=== PATIENT | female | born 1985 | race Two or more races ===

== ENCOUNTER → 2020-02-25 14:02 | Outpatient (BNVA) | payer OTHER, SELFPAY | PROVIDERS: Visit Provider Advanced Practice Midwife | DX: Z30.42 Encounter for surveillance of injectable contraceptive (principal) | CPT/HCPCS: 99211 ==

== ENCOUNTER → 2020-05-15 13:05 | Outpatient (BNVA) | payer OTHER, SELFPAY | PROVIDERS: Visit Provider Advanced Practice Midwife | DX: Z30.42 Encounter for surveillance of injectable contraceptive (principal) | CPT/HCPCS: 96372; 99211; J1050 ==

== ENCOUNTER 2020-06-19 12:46 | Outpatient (REF) | payer OTHER, SELFPAY ==
--- NOTE | 2020-06-19 12:52 | ECG_ITS ---
Test Reason : PREOP Blood Pressure : / mmHG Vent. Rate : 076 BPM Atrial Rate : 076 BPM P-R Int : 134 ms QRS Dur : 074 ms QT Int : 370 ms P-R-T Axes : 065 059 044 degrees QTc Int : 416 ms Normal sinus rhythm with sinus arrhythmia Normal ECG No previous ECGs available Referred By: Tristan Yoon Electronically Signed By:Josh Danielson
[2020-06-19 13:59] LABS: Hematocrit 40.4 % (37-47); Hemoglobin 13.5 g/dl (12.0-16.0); Mean Corpuscular HGB Conc 33.4 g/dl (31.0-35.0); Mean Corpuscular Hemoglobin 30.3 pg (27.0-33.0); Mean Corpuscular Volume 90.6 fL (80-98); Mean Platelet Volume 9.1 fL (9.4-12.3); Platelet Count 375 X10*3/uL (160-400); Red Blood Count 4.46 X10*6/uL (4.20-5.50); Red Cell Distribution Width 12.3 % (11.0-16.0); White Blood Count 7.8 X10*3/uL (4.8-10.8)
[2020-06-19 14:02] LABS: Prothrombin Time 12.4 SEC (10.8-13.0)
[2020-06-19 14:33] LABS: Anion Gap 16 (12-20); Blood Urea Nitrogen 9 mg/dL (9-16); Calcium 9.5 mg/dL (8.4-10.2); Carbon Dioxide 24 mmol/L (22-29); Chloride 105 mmol/L (96-108); Estimated Glomerular Filt Rate > 60; Glucose Random 85 mg/dL (60-115); Potassium 4.5 mmol/l (3.3-5.1); Sodium 140 mmol/L (135-145)
== END 2020-06-19 12:47 | disposition home or self-care (01) ==
LOC: HO.LAB 12:46
PROVIDERS: PCP Internal Medicine; Visit Provider Physician Assistant
DX: Z01.818 Encounter for other preprocedural examination (principal); I10 Essential (primary) hypertension
CPT/HCPCS: 36415; 80048; 85027; 85610; 93005

== ENCOUNTER 2020-07-27 12:18 | Outpatient (REF) | payer OTHER, SELFPAY ==
--- NOTE | ~2020-07-27 | XR_ITS ---
EXAMINATION: XR CHEST CLINICAL INFORMATION: Chest pain COMPARISON: None TECHNIQUE: 2 views of the chest were obtained. FINDINGS: No significant abnormality is noted involving the heart, lungs, mediastinum, bony thorax or soft tissues. XR/XR chest 2V IMPRESSION: Unremarkable chest examination.
[2020-07-27 13:15] LABS: MANUAL DIFF FLAG NO
[2020-07-27 13:18] LABS: Basophils Percent Auto 0.5 % (0-2); Eosinophils Absolute Auto 0.4 X10*3/uL (0.0-0.4); Eosinophils Percent Auto 6.3 % (0-4); Hematocrit 38.8 % (37-47); Hemoglobin 13.2 g/dl (12.0-16.0); Lymphocytes Absolute Auto 1.7 X10*3/uL (1.2-4.9); Lymphocytes Percent Auto 29.1 % (20-40); Mean Corpuscular Hemoglobin 30.6 pg (27.0-33.0); Mean Platelet Volume 9.2 fL (9.4-12.3); Monocytes Absolute Auto 0.5 X10*3/uL (0.1-1.2); Monocytes Percent Auto 8.1 % (2-11); Neutrophils Absolute Auto 3.3 X10*3/uL (2.0-8.3); Platelet Count 348 X10*3/uL (160-400); Red Blood Count 4.31 X10*6/uL (4.20-5.50); Red Cell Distribution Width 11.8 % (11.0-16.0); White Blood Count 5.9 X10*3/uL (4.8-10.8)
[2020-07-27 13:36] LABS: Prothrombin Time 12.4 SEC (10.8-13.0)
[2020-07-27 13:39] LABS: Partial Thromboplastin Time 38.8 SEC (24.1-38.0)
[2020-07-27 13:46] LABS: Alanine Aminotransferase 11 U/L (0-31); Albumin Level 4.8 g/dL (3.5-5.0); Alkaline Phosphatase 74 U/L (39-117); Anion Gap 13 (12-20); Aspartate Amino Transferase 14 U/L (5-31); Bilirubin Total 0.8 mg/dL (0.0-1.0); Blood Urea Nitrogen 10 mg/dL (9-16); Calcium 9.6 mg/dL (8.4-10.2); Carbon Dioxide 23 mmol/L (22-29); Chloride 105 mmol/L (96-108); Estimated Glomerular Filt Rate > 60; Glucose Random 83 mg/dL (60-115); Potassium 4.4 mmol/L (3.3-5.1); Sodium 137 mmol/L (135-145); Total Protein 7.8 g/dL (6.5-8.0)
[2020-07-27 13:58] LABS: Estimated Average Glucose 97 mg/dL
[2020-07-27 14:09] LABS: HCG Quantitative < 2 mIU/mL; TSH reflex Free T4 0.94 uIU/mL (0.32-4.0)
[2020-07-28 08:21] LABS: HBS Num1 14.25 mIU/mL (0-7.99); HBc Num1 0.08 S/CO (0.00-0.79); HIV AB/AG Nonreactive (Nonreactive); HIV Num 1 0.06 S/CO (0.00-0.99); Hepatitis B Core Antibody Nonreactive (Nonreactive); ~Hepatitis B Surface Antibody REACTIVE (Nonreactive)
[2020-07-28 08:48] LABS: HBsAGNum1 0.18 S/CO (0.00-0.99); Hepatitis B Surface Antigen Negative (Negative); ~HepC Num1 0.15 S/CO (0.00-0.79); ~Hepatitis C Antibody Nonreactive (Nonreactive)
== END 2020-07-27 12:19 | disposition home or self-care (01) ==
LOC: HO.LAB 12:18
PROVIDERS: PCP Internal Medicine; Visit Provider Family Medicine
DX: Z01.810 Encounter for preprocedural cardiovascular examination (principal); Z11.3 Encounter for screening for infections with a predominantly sexual mode of transmission
CPT/HCPCS: 36415; 71046; 80053; 83036; 84443; 84702; 85025; 85610; 85730; 86704; 86706; 86803; 87340; 87389

== ENCOUNTER 2020-07-31 11:01 | Outpatient (REF) | payer OTHER, SELFPAY ==
[2020-07-31 13:05] LABS: Glucose Urine UA NEG (NEG); Leukocyte Esterase Urine 1+ (NEG); Nitrite Urine NEG (NEG); Specific Gravity - Urine >= 1.030 (1.005-1.025); Urine Blood TRACE (NEG); Urine Ketones NEG (NEG); Urine Protein NEG (NEG-TRACE)
[2020-07-31 13:13] LABS: Appearance Urine HAZY; Color Urine YELLOW
[2020-07-31 14:39] LABS: Renal Epithelial Cells Urine 1+ /LPF; Squamous Epithelial Cell Urine 2+ /LPF
== END 2020-07-31 11:02 | disposition home or self-care (01) ==
LOC: HO.LAB 11:01
PROVIDERS: Absent Provider Family Medicine; PCP Internal Medicine; Visit Provider Advanced Practice Midwife
DX: Z01.810 Encounter for preprocedural cardiovascular examination (principal); Z30.42 Encounter for surveillance of injectable contraceptive
CPT/HCPCS: 81001; 81003; 96372

== ENCOUNTER 2020-08-16 13:34 | Outpatient (REF) | payer OTHER, SELFPAY ==
[2020-08-16 14:23] LABS: Glucose Urine UA NEG (NEG); Leukocyte Esterase Urine NEG (NEG); Nitrite Urine NEG (NEG); PH 6.5 (5.0-8.0); Specific Gravity - Urine 1.015 (1.005-1.025); Urine Blood TRACE (NEG); Urine Ketones NEG (NEG); Urine Protein NEG (NEG-TRACE)
[2020-08-16 14:26] LABS: Appearance Urine CLEAR; Color Urine YELLOW
[2020-08-16 14:35] LABS: RBC Urine 0-2 /HPF (0); Squamous Epithelial Cell Urine TRACE /LPF; WBC Urine 0 /HPF (0-4)
== END 2020-08-16 13:35 | disposition home or self-care (01) ==
LOC: HO.LAB 13:34
PROVIDERS: Family Medicine; PCP Internal Medicine; Visit Provider Internal Medicine
DX: Z20.822 Contact with and (suspected) exposure to COVID-19 (principal); R30.0 Dysuria
CPT/HCPCS: 36415; 81001; U0003; U0005

== ENCOUNTER 2020-08-28 14:47 | Outpatient (REF) | payer OTHER, SELFPAY ==
[2020-08-29 09:57] LABS: SARS COV2 PCR INHOUSE NEGATIVE (Negative)
== END 2020-08-28 14:48 | disposition home or self-care (01) ==
LOC: HO.LAB 14:47
PROVIDERS: Visit Provider Internal Medicine
DX: Z20.822 Contact with and (suspected) exposure to COVID-19 (principal)
CPT/HCPCS: C9803; U0003

== ENCOUNTER 2020-10-16 10:07 | Outpatient (REF) | payer OTHER, SELFPAY ==
[2020-10-16 13:30] LABS: CT PCR NOT DETECTED (Not Detect.); NG PCR NOT DETECTED (Not Detect.)
[2020-10-17 08:58] LABS: BV Int Neg Control Negative (Negative); BV Int Pos Control Positive (Positive)
[2020-10-18 23:42] LABS: HPV mRNA E6/E7 rflx Not Detected (Not Detected)
== END 2020-10-16 10:08 | disposition home or self-care (01) ==
LOC: HO.LAB 10:07
PROVIDERS: Visit Provider Advanced Practice Midwife
DX: Z01.419 Encounter for gynecological examination (general) (routine) without abnormal findings (principal); Z11.3 Encounter for screening for infections with a predominantly sexual mode of transmission; Z11.51 Encounter for screening for human papillomavirus (HPV); N89.8 Other specified noninflammatory disorders of vagina; Z20.2 Contact with and (suspected) exposure to infections with a predominantly sexual mode of transmission; Z87.42 Personal history of other diseases of the female genital tract
CPT/HCPCS: 87480; 87491; 87510; 87591; 87624; 87660; 88142; 96372; J1050

== ENCOUNTER → 2020-11-09 09:56 | Outpatient (REF) | payer OTHER, SELFPAY ==
--- NOTE | 2020-11-09 10:01 | ECG_ITS ---
Test Reason : Z01.818 PRE OP Blood Pressure : / mmHG Vent. Rate : 073 BPM Atrial Rate : 073 BPM P-R Int : 134 ms QRS Dur : 076 ms QT Int : 386 ms P-R-T Axes : 060 056 045 degrees QTc Int : 425 ms Normal sinus rhythm with sinus arrhythmia Normal ECG When compared with ECG of 19-JUN-2020 12:55, No significant change was found Referred By: Stacy Quinones Electronically Signed By:RICCO GARRETT
[2020-11-09 10:35] LABS: MANUAL DIFF FLAG NO
[2020-11-09 10:38] LABS: Basophils Percent Auto 0.5 % (0-2); Eosinophils Absolute Auto 0.2 X10*3/uL (0.0-0.4); Hematocrit 37.6 % (37-47); Hemoglobin 12.8 g/dl (12.0-16.0); Imm Gran Abs Auto 0.01 X10*3/uL (0.00-0.03); Imm Gran Pct Auto 0.2 % (0.0-0.4); Lymphocytes Absolute Auto 1.5 X10*3/uL (1.2-4.9); Lymphocytes Percent Auto 23.2 % (20-40); Mean Corpuscular Hemoglobin 30.3 pg (27.0-33.0); Mean Corpuscular Volume 89.1 fL (80-98); Mean Platelet Volume 9.2 fL (9.4-12.3); Monocytes Absolute Auto 0.5 X10*3/uL (0.1-1.2); Monocytes Percent Auto 7.8 % (2-11); Neutrophils Absolute Auto 4.2 X10*3/uL (2.0-8.3); Neutrophils Percent Auto 65.3 % (45-73); Platelet Count 340 X10*3/uL (160-400); Red Blood Count 4.22 X10*6/uL (4.20-5.50); Red Cell Distribution Width 11.9 % (11.0-16.0); White Blood Count 6.4 X10*3/uL (4.8-10.8)
[2020-11-09 10:46] LABS: INTERNATIONAL NORM RATIO 1.1 (0.9-1.1); Prothrombin Time 12.7 SEC (10.8-13.0)
[2020-11-09 10:49] LABS: Partial Thromboplastin Time 40.6 SEC (24.1-38.0)
[2020-11-09 11:01] LABS: Alanine Aminotransferase 15 U/L (0-31); Albumin Level 4.7 g/dL (3.5-5.0); Alkaline Phosphatase 76 U/L (39-117); Anion Gap 13 (12-20); Aspartate Amino Transferase 15 U/L (5-31); Bilirubin Total 0.7 mg/dL (0.0-1.0); Blood Urea Nitrogen 9 mg/dL (9-16); Calcium 9.4 mg/dL (8.4-10.2); Carbon Dioxide 24 mmol/L (22-29); Chloride 108 mmol/L (96-108); Estimated Glomerular Filt Rate > 60; Glucose Fasting 94 mg/dL (60-99); Potassium 4.6 mmol/L (3.3-5.1); Sodium 140 mmol/L (135-145); Total Protein 7.6 g/dL (6.5-8.0)
== END ==
LOC: HO.CARD 09:56
PROVIDERS: PCP Internal Medicine; Visit Provider Internal Medicine
DX: Z01.818 Encounter for other preprocedural examination (principal); D64.9 Anemia, unspecified
CPT/HCPCS: 36415; 80053; 85025; 85610; 85730; 93005; U0005

== ENCOUNTER → 2021-01-08 13:10 | Outpatient (BNVA) | payer OTHER, SELFPAY | PROVIDERS: PCP Internal Medicine; Visit Provider Advanced Practice Midwife | DX: Z30.42 Encounter for surveillance of injectable contraceptive (principal) | CPT/HCPCS: 96372; 99211 ==

== ENCOUNTER 2021-04-16 09:19 | Emergency (ER) | payer OTHER, SELFPAY | END 2021-04-16 09:36 | disposition left against medical advice (07) | PROVIDERS: Emergency Provider Emergency Medicine; PCP Internal Medicine | DX: R42 Dizziness and giddiness (principal) ==

== ENCOUNTER 2021-04-16 11:11 | Outpatient (REF) | payer OTHER, SELFPAY ==
[2021-04-16 14:07] LABS: Hematocrit 37.1 % (37.0-47.0); Hemoglobin 12.7 g/dl (12.0-16.0); Mean Corpuscular HGB Conc 34.2 g/dl (31.0-35.0); Mean Corpuscular Hemoglobin 30.2 pg (27.0-33.0); Mean Corpuscular Volume 88.3 fL (80.0-98.0); Mean Platelet Volume 9.5 fL (9.4-12.3); Platelet Count 370 X10*3/uL (160-400); Red Cell Distribution Width 12.8 % (11.0-16.0); White Blood Count 7.6 X10*3/uL (4.8-10.8)
[2021-04-16 14:35] LABS: Anion Gap 12 (12-20); Blood Urea Nitrogen 7 mg/dL (9-16); Calcium 9.4 mg/dL (8.4-10.2); Carbon Dioxide 25 mmol/L (22-29); Chloride 106 mmol/L (96-108); Estimated Glomerular Filt Rate > 60; Glucose Random 87 mg/dL (60-115); Potassium 4.4 mmol/L (3.3-5.1); Sodium 139 mmol/L (135-145)
[2021-04-16 14:38] LABS: TSH reflex Free T4 0.84 uIU/mL (0.32-4.0)
== END 2021-04-16 11:12 | disposition home or self-care (01) ==
LOC: HO.HMGCLDS 11:11
PROVIDERS: PCP Internal Medicine; Visit Provider Physician Assistant
DX: R42 Dizziness and giddiness (principal)
CPT/HCPCS: 36415; 80048; 84443; 85027

== ENCOUNTER → 2021-05-10 12:44 | Outpatient (BNVA) | payer OTHER, SELFPAY | PROVIDERS: PCP Internal Medicine; Visit Provider Obstetrics & Gynecology ==

== ENCOUNTER 2021-06-18 15:45 | Outpatient (REF) | payer OTHER, SELFPAY ==
[2021-06-19 09:02] LABS: HBS Num1 20.46 mIU/mL (0-7.99); HBc Num1 0.19 S/CO (0.00-0.79); HBsAGNum1 0.24 S/CO (0.00-0.99); Hepatitis B Core Antibody Nonreactive (Nonreactive); Hepatitis B Surface Antigen Negative (Negative); ~Hepatitis B Surface Antibody REACTIVE (Nonreactive)
[2021-06-19 17:27] LABS: Mumps Virus IgG Antibody <9.00 AU/mL
[2021-06-19 21:32] LABS: Rubella IgG Antibody 1.53 Index
[2021-06-20 18:11] LABS: TS Negative Control Passed; TS Panel A 1; TS Panel B 0; TS Positive Control Passed; TSpotTB Negative (Negative)
== END 2021-06-18 15:46 | disposition home or self-care (01) ==
LOC: HO.LAB 15:45
PROVIDERS: PCP Internal Medicine; Visit Provider Internal Medicine
DX: Z01.84 Encounter for antibody response examination (principal); Z11.1 Encounter for screening for respiratory tuberculosis
CPT/HCPCS: 36415; 86481; 86704; 86706; 86735; 86762; 86765; 86787; 87340

== ENCOUNTER → 2021-07-02 10:33 | Outpatient (BNVA) | payer OTHER, SELFPAY | PROVIDERS: Visit Provider Obstetrics & Gynecology | DX: Z01.818 Encounter for other preprocedural examination (principal) | CPT/HCPCS: 99212 ==

== ENCOUNTER → 2021-07-30 13:50 | Outpatient (BNVA) | payer OTHER, SELFPAY | PROVIDERS: Visit Provider Advanced Practice Midwife | DX: Z30.42 Encounter for surveillance of injectable contraceptive (principal); Z30.09 Encounter for other general counseling and advice on contraception | CPT/HCPCS: 81025; 96372; 99212 ==

== ENCOUNTER → 2021-10-15 13:10 | Outpatient (BNVA) | payer OTHER, SELFPAY | PROVIDERS: PCP Internal Medicine; Visit Provider Advanced Practice Midwife | DX: Z30.42 Encounter for surveillance of injectable contraceptive (principal) | CPT/HCPCS: 96372; 99211 ==

== ENCOUNTER 2022-01-08 15:18 | Outpatient (REF) | payer OTHER, SELFPAY ==
[2022-01-08 15:39] LABS: Binax Internal Control QC Valid; Binax Now Covid-19 Ag Negative (Negative)
== END 2022-01-08 15:19 | disposition home or self-care (01) ==
LOC: HO.HMGCLDS 15:18
PROVIDERS: Visit Provider Internal Medicine
DX: Z20.822 Contact with and (suspected) exposure to COVID-19 (principal); J06.9 Acute upper respiratory infection, unspecified
CPT/HCPCS: 87811; C9803

== ENCOUNTER 2022-02-04 15:22 | Outpatient (REF) | payer OTHER, SELFPAY ==
[2022-02-05 05:22] LABS: CT PCR NOT DETECTED (Not Detect.); NG PCR NOT DETECTED (Not Detect.)
[2022-02-05 13:21] LABS: BV Int Neg Control Negative (Negative); BV Int Pos Control Positive (Positive)
== END 2022-02-04 15:23 | disposition home or self-care (01) ==
LOC: HO.LNP 15:22
PROVIDERS: Visit Provider Advanced Practice Midwife
DX: Z11.3 Encounter for screening for infections with a predominantly sexual mode of transmission (principal); N89.8 Other specified noninflammatory disorders of vagina; Z20.2 Contact with and (suspected) exposure to infections with a predominantly sexual mode of transmission
CPT/HCPCS: 87480; 87491; 87510; 87591; 87660; 99212

== ENCOUNTER 2022-03-04 10:11 | Outpatient (REF) | payer OTHER, SELFPAY ==
[2022-03-04 10:55] LABS: Alanine Aminotransferase 10 U/L (0-31); Albumin Level 4.5 g/dL (3.5-5.0); Alkaline Phosphatase 84 U/L (39-117); Anion Gap 13 (12-20); Aspartate Amino Transferase 12 U/L (5-31); Bilirubin Total 0.6 mg/dL (0.0-1.0); Blood Urea Nitrogen 8 mg/dL (9-16); Calcium 9.5 mg/dL (8.4-10.2); Carbon Dioxide 24 mmol/L (22-29); Chloride 105 mmol/L (96-108); Cholesterol 164 mg/dL; Estimated Glomerular Filt Rate > 60; Glucose Fasting 97 mg/dL (60-99); HDL Cholesterol 47 mg/dL; LDL Cholesterol Calculated 102 mg/dl; Potassium 4.2 mmol/L (3.3-5.1); Sodium 138 mmol/L (135-145); Total Protein 7.6 g/dL (6.5-8.0); Triglycerides 78 mg/dL
[2022-03-04 11:19] LABS: Thyroid Stimulating Hormone 0.85 uIU/mL (0.32-4.0)
[2022-03-05 11:32] LABS: Immunoglobulin A 271 mg/dL (47-310)
[2022-03-05 14:02] LABS: Transglutaminase Ab IgG <1.0 U/mL
[2022-03-07 17:47] LABS: Endomysial IgA Antibody Negative (Negative)
== END 2022-03-04 10:12 | disposition home or self-care (01) ==
LOC: HO.LAB 10:11
PROVIDERS: PCP Internal Medicine; Visit Provider Internal Medicine
DX: K52.9 Noninfective gastroenteritis and colitis, unspecified (principal); Z82.49 Family history of ischemic heart disease and other diseases of the circulatory system
CPT/HCPCS: 36415; 80053; 80061; 82784; 84443; 86231; 86364

== ENCOUNTER 2022-03-11 09:29 | Outpatient (REF) | payer OTHER, SELFPAY ==
[2022-03-11 16:24] LABS: C Reactive Protein 0.03 mg/dL (< or = 0.50); Iron 92 mcg/dL (30-160); Percent Iron Saturation 29 % (15-50); Total Iron Binding Capacity 312 mcg/dL (228-428); Unsaturated Iron Binding 220 ug/dL
[2022-03-11 16:48] LABS: Ferritin 38 ng/mL (10-122); Vitamin D 25-OH Total 16.5 ng/mL (>30)
[2022-03-11 17:03] LABS: Folate 9.9 ng/mL (> or = 4.0); Vitamin B12 302 pg/mL (200-900)
[2022-03-13 11:47] LABS: Transglutaminase IgA <1.0 U/mL
== END 2022-03-11 09:30 | disposition home or self-care (01) ==
LOC: HO.LAB 09:29
PROVIDERS: PCP Internal Medicine; Visit Provider Internal Medicine
DX: K52.9 Noninfective gastroenteritis and colitis, unspecified (principal); R10.9 Unspecified abdominal pain
CPT/HCPCS: 36415; 82306; 82607; 82728; 82746; 83540; 83993; 86140; 86364; 87338; 87493; 89055; 99202

== ENCOUNTER 2022-03-11 14:52 | Outpatient (REF) | payer OTHER, SELFPAY ==
[2022-03-12 16:14] LABS: CDiff Gene PCR NEGATIVE (Negative)
[2022-03-12 16:47] LABS: Leukocytes Stool Qualitative NEGATIVE (NEGATIVE)
[2022-03-16 17:52] LABS: Calprotectin, Fecal 330 mcg/g
[2022-03-29 13:19] LABS: H pylori Ag Stool NOT DETECTED
== END 2022-03-11 14:53 | disposition home or self-care (01) ==
LOC: HO.LNP 14:52
PROVIDERS: Internal Medicine; Visit Provider Internal Medicine
DX: Z13.89 Encounter for screening for other disorder (principal)
CPT/HCPCS: 83993; 87338; 87493; 89055

== ENCOUNTER 2022-03-25 09:20 | Outpatient (REF) | payer OTHER, SELFPAY ==
--- NOTE | ~2022-03-25 | CT_ITS ---
EXAMINATION: CT ABDOMEN AND PELVIS WITH CONTRAST CLINICAL INFORMATION: Noninfective gastroenteritis and colitis COMPARISON: Previous CT of the abdomen and pelvis June 2017 TECHNIQUE: Multidetector volumetric images were obtained from the superior aspect of the liver through the pubic symphysis following administration 85 mL of Omnipaque 350 intravenous contrast. Sagittal and coronal reformatted images were obtained on the technologist's workstation. Oral contrast: Yes This CT examination was performed using dose optimization techniques as appropriate, variously including the following: *Automated exposure control *Adjustment of mA and/or kV according to patient size (this includes techniques or standardized protocols for targeted exams where dose is matched to indication/reason for exam; i.e. extremities or head) *Use of iterative reconstruction technique DLP: 405 mGy-cm FINDINGS: LUNG BASES: The visualized lung bases are unremarkable. LIVER, GALLBLADDER, AND BILIARY TREE: The liver is normal in size, shape, and attenuation. No focal hepatic lesion or biliary ductal dilatation is present. The gallbladder is unremarkable with no evidence of radiopaque gallstones, gallbladder wall thickening, or obvious pericholecystic inflammatory changes. PANCREAS: Unremarkable. SPLEEN: Unremarkable. ADRENAL GLANDS: Unremarkable. KIDNEYS AND URETERS: The kidneys are normal in size, shape, and attenuation. No hydronephrosis, hydroureter, or calculi seen. No perinephric stranding. BLADDER: Unremarkable. GASTROINTESTINAL TRACT: The small and large bowel are unremarkable. The appendix is unremarkable. ABDOMINAL WALL: No significant hernia is appreciated. LYMPH NODES: There is shotty small bowel mesentery lymphadenopathy in the right lower quadrant. This is similar to previous exam 2018. No enlarged nodes. No ascites. VASCULAR: Unremarkable. PELVIC VISCERA: Prominent pelvic vessels questionable for pelvic congestion. Uterus and ovaries are otherwise unremarkable. OSSEOUS STRUCTURES: Unremarkable. CT/CT abdomen pelvis w IV con IMPRESSION: No evidence of colitis. Prominent pelvic vessels questionable for pelvic congestion. Fleischner guidelines were followed.
[2022-03-25] MEDS: iohexoL 350 MG/ML 100 ML INFUS..BTL IV (09:54)
== END 2022-03-25 09:21 | disposition home or self-care (01) ==
LOC: HO.CT 09:20
PROVIDERS: Visit Provider Internal Medicine
DX: K52.9 Noninfective gastroenteritis and colitis, unspecified (principal)
CPT/HCPCS: 74177; Q9967

== ENCOUNTER 2022-04-11 12:43 | Day surgery (SDC) | payer OTHER, SELFPAY ==
[2022-04-05 11:02] VITALS: BMI 26.9
--- NOTE | 2022-04-10 13:04 | P.CONAN_ITS ---
Documented by User: Jennifer Monaco NP 04/10/22 13:05 HPI - Anesthesia Eval Consult details Narrative: 36yo F for Colonoscopy PMFSH Active Problems Active Problems: All Active Problems (Updated 03/21/22 @ 17:34 by Stacy Quinones MD) Anxiety (Acute) Migraines (Acute) Memory loss (Acute) Physical exam (Acute) Central abdominal pain (Acute) BPPV (benign paroxysmal positional vertigo) (Acute) Chronic diarrhea (Acute) Upper respiratory tract infection (Acute) Encounter for management and injection of depo-Provera (Acute) Sterilization (Acute) Family planning (Acute) Pre-op evaluation (Acute) Vaginal discharge (Acute) Hx of abnormal cervical Pap smear (Acute) Well woman exam with routine gynecological exam (Acute) Preop cardiovascular exam (Acute) Fungal dermatitis (Acute) Pre-op evaluation (Acute) Depot contraception (Acute) Depo-Provera contraceptive status (Acute) Past Medical History Medical History (Updated 04/11/22 @ 12:58 by Mckenzie Castro RN) Anxiety Asthma Migraine Family History Family History Mother History of hypertension Hx of diabetes mellitus History of high cholesterol Father Murder Daughter In good health Daughter In good health Sister No problems noted. Brother No problems noted. Sister No problems noted. Sister No problems noted. Surgical History Surgical History (Updated 04/11/22 @ 13:01 by Mckenzie Castro RN) History of loop electrical excision procedure (LEEP) Hx of abdominal surgery Social History Social History Housing: House Alcohol intake: current Alcohol intake frequency: a few times a month Patient Tobacco Use Status: Former Tobacco user Quit Date: 6 mos ago Tobacco use type: Cigarette e-Cigarette/Vaping Use: Never Used Second Hand Smoke Exposure: No service: No Current occupational status: employed Gender identity: Female Cognitive needs: No Hearing needs: No Vision needs: Yes Meds Allergies Allergy/AdvReac Type Severity Reaction Status Date / Time No Known Allergies Allergy Verified 03/21/22 17:22 [No Known Allergies*] Exam Exam Date and Time: April 10, 2022 1304 Height,Weight and Vital Signs: Height 5 ft 6 in Weight 75.75 kg Pertinent Lab Results Pertinent Lab Results: Laboratory Tests 11/22/21 10/10/22 11:27 10:21 WBC 7.6 Hgb 12.7 Hct 37.1 Plt Count 370 Sodium 138 Potassium 4.2 Chloride 105 Carbon Dioxide 24 BUN 8 L Creatinine 0.74 Assessment and Plan Assessment Anesthesia Assessment: Chart Reviewed Documented by User: Isaac Gregory MD 04/11/22 17:52 [facility] Past Medical History Medical History (Updated 04/11/22 @ 12:58 by Mckenzie Castro RN) Anxiety Asthma Migraine Family History Family History Mother History of hypertension Hx of diabetes mellitus History of high cholesterol Father Murder Daughter In good health Daughter In good health Sister No problems noted. Brother No problems noted. Sister No problems noted. Sister No problems noted. Family history of problems with anesthesia: No Surgical History Surgical History (Updated 04/11/22 @ 13:01 by Mckenzie Castro RN) History of loop electrical excision procedure (LEEP) Hx of abdominal surgery History of Problems with Anesthesia: No Social History Social History Housing: House Alcohol intake: current Alcohol intake frequency: a few times a month Patient Tobacco Use Status: Former Tobacco user Quit Date: 6 mos ago Tobacco use type: Cigarette e-Cigarette/Vaping Use: Never Used Second Hand Smoke Exposure: No service: No Current occupational status: employed Gender identity: Female Cognitive needs: No Hearing needs: No Vision needs: Yes Meds Allergies Allergy/AdvReac Type Severity Reaction Status Date / Time No Known Allergies Allergy Verified 03/21/22 17:22 [No Known Allergies*] Exam Airway Mallampati Class: III TM Dist: >3cm Neck ROM: Full Loose/Missing/Broken Teeth: Yes (Fillings ) Heart: S1,S2 Lungs: b/l breath sounds Assessment and Plan Assessment Anesthesia Assessment: Anesthesia Plan Discussed Final Anesthetic Review Family History of Problems with Anesthesia: No History of Problems with Anesthesia: No NPO: Yes ASA Class: II Final Preanesthetic Review: Meds/Allgs Chart Reviewed, Consent Obtained/Reviewed and Anes Risks/Benef Reviewed Patient Risk: Intermediate Procedure Risk: Intermediate Anesthetic Plan Anesthetic Plan: MAC: Disposition: Standard PACU
[2022-04-11 13:07] VITALS: BP 116/76; PULSE 86; RESP 15; TEMP 36.3; O2SAT 96
[2022-04-11 13:09] LABS: Urine Pregnancy NEGATIVE (NEGATIVE)
[2022-04-11 13:10] LABS: UPreg QC Valid YES
[2022-04-11] MEDS: Lactated Ringers 1,000 ML 100 ML IVCONT (13:19)
--- NOTE | 2022-04-11 14:01 | MHC.SHP ---
Pre-Procedural Eval Section A Date of Service: 04/11/22 The History & Physical has been completed within 30 days and I have reviewed it.: Yes Section B Chief Complaint: Chronic diarrhea Allergies: Allergies Allergy/AdvReac Type Severity Reaction Status Date / Time No Known Allergies Allergy Verified 03/21/22 17:22 [No Known Allergies*] Plan Diagnosis/Plan: Unchanged I have reviewed the history and physical and performed a pertinent physical examination on my patient. No changes have occurred unless specified.
--- NOTE | 2022-04-11 14:02 | P.OP_ITS ---
Operative Note Operative Note Date of Service: 04/11/22 Narrative: Procedure: Colonoscopy Indication: Chronic Diarrhea Endoscopist: Tamiko King MD Anesthesia Provider: Kelley Zavaleta CRNA Anesthesia type: MAC Instrument: Olympus PCF-H190L Consent: Indication, risks vs benefits, and alternatives were discussed with the patient who gave written informed consent to proceed. EKG, pulse, pulse oximetry and blood pressure were monitored throughout the procedure. Please see anesthesia flowsheet. Procedure: The patient was brought to the procedure room and placed in the left lateral decubitus position. IV medications were administered by the anesthesia provider in attendance. A digital rectal exam was performed which was normal. The colonoscope was then inserted through the anus and advanced through the colon to the cecum at 75 cm,and terminal ileum. Appendiceal orifice and IC valve were identified. Mucosa was carefully examined under high definition white light as the instrument was slowly withdrawn in a retrograde panoramic fashion. Retroflexion was performed in rectum. The procedure was not difficult. There were no immediate obvious complications. The quality of the prep was BBPS: 3+3+3 = excellent Withdrawal time 25 minutes. Limitations: No limitations. Findings: Mucosa: Erythema congestion and erosions were noted in the rectum with sharp demarcation at 20 cm. Patchy erythema and erosions were noted in the cecum. Superficial ulcerations noted in terminal ileum up to 10 cm. Ascending, transverse, descending and sigmoid colon appeared normal on endoscopic exam. Cold forceps biopsies were obtained from terminal ileum, cecum, ascending, transverse, descending and sigmoid colon; and rectum. Protruding lesions: * Small internal hemorrhoids [without] stigmata of recent bleeding. Impression: 1. Abnormal mucosa in rectum, cecum and TI. 2. Internal hemorrhoids Recommendations: - Likely Crohn's disease vs atypical ulcerative colitis/indeterminate colitis. - Await path results. - Start Prednisone 40mg PO once daily x 14 days followed by a taper. - Follow up in office as scheduled
[2022-04-11 14:48] VITALS: BP 117/75; PULSE 74; RESP 16; TEMP 37.1; O2SAT 99
[2022-04-11 15:03] VITALS: BP 129/85; PULSE 70; RESP 18; TEMP 37.1; O2SAT 99
== END 2022-04-11 15:43 | disposition home or self-care (01) ==
PROVIDERS: Nurse Practitioner; PCP Internal Medicine; Visit Provider Internal Medicine
PROC: 0DJD8ZZ Inspection of Lower Intestinal Tract, Via Natural or Artificial Opening Endoscopic (ICD-10-PCS; CPT 45378; principal; 2022-04-11 13:20)
DX: K52.9 Noninfective gastroenteritis and colitis, unspecified (principal); R19.8 Other specified symptoms and signs involving the digestive system and abdomen; K62.89 Other specified diseases of anus and rectum; K64.8 Other hemorrhoids; F41.1 Generalized anxiety disorder; G43.909 Migraine, unspecified, not intractable, without status migrainosus; J45.909 Unspecified asthma, uncomplicated; Z79.899 Other long term (current) drug therapy; Z87.891 Personal history of nicotine dependence
CPT/HCPCS: 45380; 81025; 88305

== ENCOUNTER → 2022-04-22 10:12 | Outpatient (BNVA) | payer OTHER, SELFPAY | PROVIDERS: PCP Internal Medicine; Visit Provider Internal Medicine | DX: Z01.818 Encounter for other preprocedural examination (principal); K51.90 Ulcerative colitis, unspecified, without complications | CPT/HCPCS: 99212 ==

== ENCOUNTER 2022-04-24 15:55 | Outpatient (REF) | payer OTHER, SELFPAY ==
[2022-04-24 17:25] LABS: Anion Gap 11 (12-20); Blood Urea Nitrogen 11 mg/dL (9-16); Calcium 9.3 mg/dL (8.4-10.2); Carbon Dioxide 28 mmol/L (22-29); Chloride 101 mmol/L (96-108); Estimated Glomerular Filt Rate > 60; Glucose Random 70 mg/dL (60-115); Potassium 3.9 mmol/L (3.3-5.1); Sodium 136 mmol/L (135-145); Thyroid Stimulating Hormone 2.58 uIU/mL (0.32-4.0)
[2022-04-24 17:38] LABS: Folate 7.8 ng/mL (> or = 4.0); Vitamin B12 335 pg/mL (200-900)
== END 2022-04-24 15:56 | disposition home or self-care (01) ==
LOC: HO.LAB 15:55
PROVIDERS: PCP Internal Medicine; Visit Provider Psychiatry & Neurology Neurology
DX: R41.3 Other amnesia (principal)
CPT/HCPCS: 36415; 80048; 82607; 82746; 84436; 84443

== ENCOUNTER 2022-05-10 08:40 | Day surgery (SDC) | payer OTHER, SELFPAY ==
[2022-05-06 10:38] VITALS: BMI 27.3
--- NOTE | 2022-05-09 09:02 | P.CONAN_ITS ---
Documented by User: Jennifer Monaco NP 05/09/22 09:04 HPI - Anesthesia Eval Consult details Narrative: 36yo F for Tubal Ligation Laparoscopic using bipolar cautery,poss bilateral salpingectomy, s/p colo 03/2022 with MAC [facility] Active Problems Active Problems: All Active Problems (Updated 05/06/22 @ 10:47 by Justine Dupont RN) Depo-Provera contraceptive status (Acute) Depot contraception (Acute) Pre-op evaluation (Acute) Fungal dermatitis (Acute) Preop cardiovascular exam (Acute) Well woman exam with routine gynecological exam (Acute) Hx of abnormal cervical Pap smear (Acute) Vaginal discharge (Acute) Pre-op evaluation (Acute) Family planning (Acute) Sterilization (Acute) Encounter for management and injection of depo-Provera (Acute) Upper respiratory tract infection (Acute) Chronic diarrhea (Acute) BPPV (benign paroxysmal positional vertigo) (Acute) Central abdominal pain (Acute) Physical exam (Acute) Memory loss (Acute) Migraines (Acute) Anxiety (Acute) Ulcerative colitis (Acute) Past Medical History Medical History Anxiety Asthma Migraine Ulcerative colitis Family History Family History Mother History of hypertension Hx of diabetes mellitus History of high cholesterol Father Murder Daughter In good health Daughter In good health Sister No problems noted. Brother No problems noted. Sister No problems noted. Sister No problems noted. Family history of problems with anesthesia: No Surgical History Surgical History H/O colonoscopy History of loop electrical excision procedure (LEEP) Hx of abdominal surgery History of Problems with Anesthesia: No Social History Social History Housing: House Alcohol intake: current Alcohol intake frequency: a few times a month Patient Tobacco Use Status: Former Tobacco user Quit Date: 2021 Tobacco use type: Cigarette Cigarettes Per Day: 2 Years Smoked: 10 Smoked in Last 30 Days: No e-Cigarette/Vaping Use: Never Used Second Hand Smoke Exposure: No Use of substances other than those prescribed or required for medical reasons: No Are you DNR?: No Advance Directives: No Advance Directives Information Provided: Yes service: No Current occupational status: employed Gender identity: Female Cognitive needs: No Hearing needs: No Vision needs: Yes Meds Allergies Allergy/AdvReac Type Severity Reaction Status Date / Time No Known Allergies Allergy Verified 05/10/22 08:45 [No Known Allergies*] Exam Exam Date and Time: May 09, 2022 09 Height,Weight and Vital Signs: Height 5 ft 6 in Weight 77 kg Pertinent Lab Results Pertinent Lab Results: Laboratory Tests 04/24/22 16:09 Sodium 136 Potassium 3.9 Chloride 101 Carbon Dioxide 28 BUN 11 Creatinine 0.82 Assessment and Plan Assessment Anesthesia Assessment: Chart Reviewed Final Anesthetic Review Family History of Problems with Anesthesia: No History of Problems with Anesthesia: No Documented by User: Stefanie Stallings MD 05/10/22 09:16 [facility] Active Problems Active Problems: All Active Problems (Updated 05/06/22 @ 10:47 by Justine Dupont RN) Depo-Provera contraceptive status (Acute) Depot contraception (Acute) Pre-op evaluation (Acute) Fungal dermatitis (Acute) Preop cardiovascular exam (Acute) Well woman exam with routine gynecological exam (Acute) Hx of abnormal cervical Pap smear (Acute) Vaginal discharge (Acute) Pre-op evaluation (Acute) Family planning (Acute) Sterilization (Acute) Encounter for management and injection of depo-Provera (Acute) Upper respiratory tract infection (Acute) Chronic diarrhea (Acute) BPPV (benign paroxysmal positional vertigo) (Acute) Central abdominal pain (Acute) Physical exam (Acute) Memory loss (Acute) Migraines (Acute) Anxiety (Acute) Ulcerative colitis (Acute) q Past Medical History Medical History Anxiety Asthma Migraine Ulcerative colitis Family History Family History Mother History of hypertension Hx of diabetes mellitus History of high cholesterol Father Murder Daughter In good health Daughter In good health Sister No problems noted. Brother No problems noted. Sister No problems noted. Sister No problems noted. Surgical History Surgical History H/O colonoscopy History of loop electrical excision procedure (LEEP) Hx of abdominal surgery Social History Social History Housing: House Alcohol intake: current Alcohol intake frequency: a few times a month Patient Tobacco Use Status: Former Tobacco user Quit Date: 2021 Tobacco use type: Cigarette Cigarettes Per Day: 2 Years Smoked: 10 Smoked in Last 30 Days: No e-Cigarette/Vaping Use: Never Used Second Hand Smoke Exposure: No Use of substances other than those prescribed or required for medical reasons: No Are you DNR?: No Advance Directives: No Advance Directives Information Provided: Yes service: No Current occupational status: employed Gender identity: Female Cognitive needs: No Hearing needs: No Vision needs: Yes Meds Allergies Allergy/AdvReac Type Severity Reaction Status Date / Time No Known Allergies Allergy Verified 05/10/22 08:45 [No Known Allergies*] Exam Airway Mallampati Class: II TM Dist: >3cm Neck ROM: Full Loose/Missing/Broken Teeth: No Heart: RRR Lungs: CTA Assessment and Plan Assessment Anesthesia Assessment: Anesthesia Plan Discussed Final Anesthetic Review NPO: Yes ASA Class: II Final Preanesthetic Review: Meds/Allgs Chart Reviewed, Consent Obtained/Reviewed and Anes Risks/Benef Reviewed Patient Risk: Low Procedure Risk: Low Anesthetic Plan Anesthetic Plan: GA Disposition: Standard PACU
[2022-05-10] VITALS (13 sets, daily range): BP systolic 112–138; BP diastolic 71–88; PULSE 60–85; RESP 16–18; TEMP 36.4–36.9; O2SAT 95–100; BMI 27.4
[2022-05-10 09:01] LABS: UPreg QC Valid YES; Urine Pregnancy NEGATIVE (NEGATIVE)
--- NOTE | 2022-05-10 09:18 | MHC.SHP ---
Pre-Procedural Eval Section A Date of Service: 05/10/22 The patient is an INPATIENT: No Changes since office visit: No Cold of Flu in the past 2 weeks, No New Medical Problems, No Changes in Medication and No Patient answered all questions The History & Physical has been completed within 30 days and I have reviewed it.: Yes Section B Chief Complaint: Encounter for sterilization Allergies: Allergies Allergy/AdvReac Type Severity Reaction Status Date / Time No Known Allergies Allergy Verified 05/10/22 08:45 [No Known Allergies*] Plan Diagnosis/Plan: Unchanged I have reviewed the history and physical and performed a pertinent physical examination on my patient. No changes have occurred unless specified. Time Spent With Patient Time: Total time managing care of this patient today ____ minutes.
[2022-05-10] MEDS: Lactated Ringers 1,000 ML 100 ML IVCONT (09:19)
--- NOTE | 2022-05-10 10:33 | PM.OP ---
Brief Operative Note Date of Service: 05/10/22 Pre-op diagnosis: Completed family requesting permanent sterilization Post-op diagnosis: same Procedure: Laparoscopic bliateral salpingectomy Surgeon: Vinnie Childers MD Anesthesia: GETA Was an Fabric And Textile Factory Worker used for this Procedure?: No Estimated blood loss (mL): 0 Pathology: other (Right & left fallopian tubes) Condition: stable Disposition: PACU
--- NOTE | 2022-05-10 10:34 | P.OP_ITS ---
Operative Note Operative Note Date of Service: 05/10/22 Narrative: PREOPERATIVE DIAGNOSIS:?Completed family requesting?permanent sterilization POSTOPERATIVE DIAGNOSIS:?Completed family requesting?permanent sterilization QBL: Minimal Anesthesia: GETA SURGEON:? Vinnie Childers MD?? Wood Window And Door Craftsman: Complications: None Pathology: Right and left Fallopian tubes? DESCRIPTION OF PROCEDURE:?The patient was taken to the OR where general anesthesia was easily obtained. The patient was then prepped and draped in a sterile fashion and placed in dorsal lithotomy position. A speculum was introduced into the patient?s vagina for cervical visualization. Once the cervix was visualized, a single-toothed tenaculum was applied to the upper lip of the cervix, and a Humi manipulator was introduced into the patient?s cervix. The single tooth tenaculum was then removed and hemostasis was assured?using pressur e. a Rodriguez catheter?was inserted and clear urine started draining. Gloves were changed to clean ones. Attention was then drawn to the abdomen where a 10 mm longitudinal incision was done intra umbilical and carried down all the way to the fascia, which was tented?up using 2 Mathew clamps and was nicked in the midline and then extended on both end of the incision?, them using 2 pick?ups the peritoneum?was entered with Metzenbaum scissors and under direct visualization, a 10 mm Saba trocar was introduced into the patient?s abdomen. Once intraperitoneal placement was confirmed with direct visualization, pneumoperitoneum was started & was easily obtained.Then, two fingerbreadths above the pubic symphysis and towards the?right lower quadrant, under direct visualization, a 5 mm trocar was then introduced into the patient?s abdomen. and a 3rd one on the left?lower quadrant was placed?in a similar manner. The patient was placed in Trendelenburg position, Inspection revealed normal pelvic str uctures & bilateral ovaries and fallopian tubes. Attention was then drawn to the left fallopian tube. The IP ligament was identified and fallopian tube was then grasped by the fimbria and incised from the mesosalpinx using ligasure device, using cautery for hemostasis and cutting afterwards a bite at a time all the way to the cornual end of the left tube. The same was done?on the?right fallopian t ube. Good hemostasis was noted from both fallopian tube sites and the operative site. Specimen were then removed from the patient?s abdomen. Copious irrigation was done. Once good hemostasis was noted from the patient?s abdomen, pneumoperitoneum was deflated and all trocars were removed. Infraumbilical fascia was closed with 0 Vicryl and interrupted suture. The skin was closed with 4-0 Vicryl. The Right and left?lower quadrant ports were closed with 0 Vicryl. Bupivicaine 0.25 10 cc were injected subcuticularly in the 3 incisions. Then speculum was put back in the vagina inspection revealed?hemostasis at the site of the tenaculum, the?humi manipulator was removed? and Rodriguez was draining clear urine was taken out too. Sponge, lap and needle counts were correct x2. The patient was taken to the recovery room in stable condition.
[2022-05-10] MEDS: fentaNYL citrate/PF 100 MCG/2 ML VIAL 25 MCG IVPUSH ×4 (11:13→11:28)
[2022-05-10] MEDS: oxyCODONE HCl Immed Release 5 MG TABLET PO (11:15)
[2022-05-10] MEDS: Acetaminophen 325 MG TABLET 650 MG PO (11:15)
== END 2022-05-10 12:50 | disposition home or self-care (01) ==
LOC: HO.SSS 08:40
PROVIDERS: PCP Internal Medicine; Visit Provider Obstetrics & Gynecology
PROC: (CPT 58670; principal; 2022-05-10 10:00)
DX: Z30.2 Encounter for sterilization (principal); F41.1 Generalized anxiety disorder; J45.909 Unspecified asthma, uncomplicated; G43.909 Migraine, unspecified, not intractable, without status migrainosus; Z79.899 Other long term (current) drug therapy; Z87.891 Personal history of nicotine dependence
CPT/HCPCS: 58661; 81025; 88302; J1100; J1885; J2250; J2405; J2795; J3010

== ENCOUNTER → 2022-05-28 14:16 | Outpatient (BNVA) | payer OTHER, SELFPAY | PROVIDERS: PCP Internal Medicine; Visit Provider Obstetrics & Gynecology | DX: Z30.2 Encounter for sterilization (principal) | CPT/HCPCS: 99212 ==

== ENCOUNTER 2022-06-07 16:48 | Outpatient (REF) | payer OTHER, SELFPAY ==
--- NOTE | ~2022-06-07 | CT_ITS ---
EXAMINATION: CT HEAD WITHOUT CONTRAST CLINICAL INFORMATION: Amnesia. COMPARISON: None TECHNIQUE: Contiguous axial imaging was performed from the skull base to vertex without intravenous administration of contrast. This CT examination was performed using dose optimization techniques as appropriate, variously including the following: *Automated exposure control *Adjustment of mA and/or kV according to patient size (this includes techniques or standardized protocols for targeted exams where dose is matched to indication/reason for exam; i.e. extremities or head) *Use of iterative reconstruction technique DLP: 828 mGy-cm FINDINGS: There is no acute intra-axial, extra-axial bleed, masses, collection or midline shift. There is no acute infarction in evolution. The garcia to white matter difference is maintained. The lateral ventricles are symmetrical in size and configuration. No abnormality seen in the posterior fossa. Bone windows reveal no calvarial abnormality. No scalp soft tissue abnormality seen. Paranasal sinuses and mastoid air cells are well-aerated. CT/CT head/brain wo IV con IMPRESSION: No acute intracranial process seen.
[2022-06-07 17:53] LABS: Anion Gap 13 (12-20); Blood Urea Nitrogen 9 mg/dL (9-16); C Reactive Protein < 0.10 mg/dL (< or = 0.50); Calcium 9.1 mg/dL (8.4-10.2); Carbon Dioxide 24 mmol/L (22-29); Chloride 105 mmol/L (96-108); Estimated Glomerular Filt Rate > 60; Glucose Random 86 mg/dL (60-115); Sodium 138 mmol/L (135-145)
== END 2022-06-07 16:49 | disposition home or self-care (01) ==
LOC: HO.CT 16:48
PROVIDERS: Internal Medicine; PCP Internal Medicine; Visit Provider Psychiatry & Neurology Neurology
DX: K51.90 Ulcerative colitis, unspecified, without complications (principal); R41.3 Other amnesia
CPT/HCPCS: 36415; 70450; 80048; 86140

== ENCOUNTER → 2022-06-17 12:29 | Outpatient (BNVA) | payer OTHER, SELFPAY | PROVIDERS: PCP Internal Medicine; Visit Provider Internal Medicine | DX: K51.90 Ulcerative colitis, unspecified, without complications (principal) | CPT/HCPCS: 99212 ==

== ENCOUNTER 2022-08-14 13:28 | Outpatient (REF) | payer OTHER, SELFPAY ==
[2022-08-21 00:04] LABS: Calprotectin, Fecal 5 mcg/g
== END 2022-08-14 13:29 | disposition home or self-care (01) ==
LOC: HO.LNP 13:28
PROVIDERS: Visit Provider Internal Medicine
DX: K51.90 Ulcerative colitis, unspecified, without complications (principal)
CPT/HCPCS: 83993

== ENCOUNTER → 2022-08-19 14:22 | Outpatient (BNVA) | payer OTHER, SELFPAY | PROVIDERS: PCP Internal Medicine; Visit Provider Advanced Practice Midwife ==

== ENCOUNTER → 2022-09-02 13:10 | Outpatient (BNVA) | payer OTHER, SELFPAY | PROVIDERS: PCP Internal Medicine; Referring Provider Internal Medicine; Visit Provider Internal Medicine | DX: K51.90 Ulcerative colitis, unspecified, without complications (principal) | CPT/HCPCS: 99212 ==

== ENCOUNTER 2023-03-04 12:47 | Outpatient (REF) | payer OTHER, SELFPAY | END 2023-03-04 12:48 | disposition home or self-care (01) | LOC: HO.LAB 12:47 | PROVIDERS: Visit Provider Internal Medicine | DX: K51.90 Ulcerative colitis, unspecified, without complications (principal) | CPT/HCPCS: 36415; 80053; 85027; 86140 ==

== ENCOUNTER 2023-03-05 13:42 | Outpatient (REF) | payer OTHER, SELFPAY ==
[2023-03-13 03:59] LABS: Calprotectin, Fecal 78 mcg/g
== END 2023-03-05 13:43 | disposition home or self-care (01) ==
LOC: HO.LNP 13:42
PROVIDERS: Visit Provider Internal Medicine
DX: K51.90 Ulcerative colitis, unspecified, without complications (principal)
CPT/HCPCS: 83993

== ENCOUNTER 2023-03-07 15:18 | Outpatient (AMB) | payer OTHER, SELFPAY ==
[2023-03-07 15:42] VITALS: BP 112/70; PULSE 65; TEMP 36.8; O2SAT 98; BMI 28.6
--- NOTE | 2023-03-07 15:42 | AM.OFFWIN_ITS ---
Intake Vital Signs 03/07/23 15:42 Height 5 ft 6 in Weight 177 lb BMI 28.6 BP 112/70 Blood Pressure Location Lt brachial Position Sitting Pulse 65 Pulse Source Pulse Oximeter Temp 98.3 F Temp Source Temporal Artery Scan Pulse Oximetry (%) 98 Intake Visit Reasons: EST/back pain(lobby) Intake Note: pt is here for c/o lower back pain, right side since Friday Patient Tobacco Use Status: Former Tobacco user Quit Date: 2021 Allergies No Known Allergies [No Known Allergies*] Allergy (Verified 03/07/23 15:46) Do you need a note to return to daycare/school/sports/work: No HPI HPI Comments History of Present Illness Details This is a 37-year-old female who presents to the office today for sick visit. Patient complaining of right-sided low back pain x4 days. Patient states she was moving her daughter's bedroom set around the room when she developed right-sided low back pain. She states the pain radiates slightly down into her right buttock but she denies any numbness/weakness/paresthesias of her lower extremities. She denies any saddle anesthesia, bowel/ bladder retention/ incontinence, or fever/chills. [facility] Medical History Anxiety Asthma Migraine Ulcerative colitis Surgical History H/O colonoscopy H/O tubal ligation History of loop electrical excision procedure (LEEP) Hx of abdominal surgery Family History Mother History of hypertension Hx of diabetes mellitus History of high cholesterol Father Murder Daughter In good health Daughter In good health Sister No problems noted. Brother No problems noted. Sister No problems noted. Sister No problems noted. Social History Housing: House Alcohol intake: current Alcohol intake frequency: a few times a month Patient Tobacco Use Status: Former Tobacco user Quit Date: 2021 Tobacco use type: Cigarette Cigarettes Per Day: 2 Years Smoked: 10 e-Cigarette/Vaping Use: Never Used Second Hand Smoke Exposure: No service: No Current occupational status: unemployed Gender identity: Female Cognitive needs: No Hearing needs: No Vision needs: Yes Female Reproductive History Menstrual Age of Menarche: 15 Review of Systems Const All systems reviewed & are unremarkable except as noted in HPI and below Reports no additional complaints Eyes Reports no additional complaints ENT Reports no additional complaints Card Reports no additional complaints Resp Reports no additional complaints GI Reports no additional complaints Reports no additional complaints Musc Reports no additional complaints Skin/Breast Reports system reviewed and no additional complaints, except as documented Neuro Reports no additional complaints Psych Reports no additional complaints Endo Reports no additional complaints Isidro/Lymph Reports no additional complaints Aller/Immun Reports no additional complaints Physical Exam Const Other: Vital signs reviewed. Constitutional: Non-toxic appearing. No acute distress. Well-developed and well-nourished. HEENT: Normocephalic and atraumatic. Tympanic membranes without erythema, radha ma, or bulging bilaterally. External auditory canals without erythema or edema bilaterally. Moist mucous membranes. No pharyngeal erythema or exudates. Skin: Warm and dry. No rashes or lesions noted. Neck: Full and painless range of motion. No cervical lymphadenopathy. Cardio: Regular rate and rhythm. No murmurs, gallops, or rubs. No lower extremity edema. No JVD. Pulmonary: No respiratory distress. No accessory muscle usage. Clear to auscultation bilaterally without wheezing, crackles, or rhonchi. Gastrointestinal: Soft, nontender, and nondistended in all 4 quadrants. Normoactive bowel sounds in all 4 quadrants. Genitourinary: No CVA tenderness. Musculoskeletal: Tenderness to palpation and palpable muscle spasm of the right lumbar paraspinal musculature. Negative straight leg raise bilaterally. Neuro: Alert and oriented x4. Cranial nerves 2-12 grossly intact. No focal deficits appreciated. Psych: Normal mood and affect. Assessment & Plan Assessment & Plan (1) Lumbar paraspinal muscle spasm: Code(s): M62.830 - Muscle spasm of back Plan: This is a 37-year-old female presenting to the office complaining of right-sided low back pain in the setting of moving her daughter's bedroom set. On physical examination, patient has palpable muscle spasm and tenderness to palpation of the right lumbar paraspinal musculature. She has no red flag symptoms to suggest neurosurgical emergency. Patient's physical exam is otherwise benign, her vital signs are stable, and she is overall nontoxic appearing. We will check an x-ray of the lumbar spine and patient will be called with the results. Recommend rest/activity modification, ice/heat to the area, and continue with acetaminophen/ibuprofen for pain management as long as patient has no medical contraindications. Patient was sent home on p.o. methocarbamol 750 mg 3 times daily as needed for muscle spasms. She was made aware that this can be slightly sedating though it is less sedating than cyclobenzaprine. I recommended patient try this medication at bedtime to see how she reacts. She was also sent home on 5% lidocaine patches. She was advised to proceed directly to the emergency room if she were to develop any red flag symptoms as listed above. Patient verbalized understanding and is agreeable with the plan. Orders: Orders XR lumbar spine 2-3V Today M54.50 - Low back pain, unspecified Medications: New methocarbamol 750 mg PO TID PRN 20 tabs 0RF muscle spasm lidocaine 5% leave on most painful area for up to 12 hrs 2 patches topical DAILY 30 ea 0RF Coding Level of Care Code Est Pt Level 3 (00624) Diagnoses Lumbar paraspinal muscle spasm M62.830
== END 2023-03-07 16:26 | disposition home or self-care (01) ==
PROVIDERS: PCP Internal Medicine; Visit Provider Physician Assistant Medical
DX: M62.830 Muscle spasm of back (principal)
CPT/HCPCS: 99213

== ENCOUNTER 2023-03-07 16:06 | Outpatient (REF) | payer OTHER, SELFPAY ==
--- NOTE | ~2023-03-07 | XR_ITS ---
EXAMINATION: XR LUMBOSACRAL SPINE CLINICAL INFORMATION: Low back pain. COMPARISON: CT abdomen/pelvis 03/25/2022. TECHNIQUE: Three views of the lumbosacral spine. FINDINGS: No evidence of acute compression deformity or traumatic subluxation. Intervertebral disc spaces are maintained. Normal appearance of the posterior elements. SI joints are symmetric. No significant paraspinal soft tissue finding. XR/XR lumbar spine 2-3V IMPRESSION: No significant radiographic abnormality to explain the patient's pain. Further evaluation with CT or MRI could be obtained as clinically deemed appropriate.
== END 2023-03-07 16:07 | disposition home or self-care (01) ==
LOC: HO.HMGCX 16:06
PROVIDERS: PCP Internal Medicine; Visit Provider Physician Assistant Medical
DX: M54.50 Low back pain, unspecified (principal)
CPT/HCPCS: 72100

== ENCOUNTER 2023-03-10 13:03 | Outpatient (AMB) | payer OTHER, SELFPAY ==
--- NOTE | 2023-03-10 13:17 | A.OFFVIS_ITS ---
Intake Vital Signs 03/10/23 13:23 Height 5 ft 6 in Weight 174 lb 2.643 oz BMI 28.1 BP 119/78 Blood Pressure Location Lt brachial Position Sitting Pulse 91 Intake Visit Reasons: 6 mnth follow up Intake Note: Radha presents in the office as a 6 month follow up. CC: She states that she is not having any concerns today. Allergies No Known Allergies [No Known Allergies*] Allergy (Verified 03/10/23 13:22) HPI HPI Comments History of Present Illness Details This is a 36-year-old female who is presenting for follow up: Initial visit 03/11/22: Patient states that for the past 3 months, she has been experiencing abdominal pain associated with loose watery diarrhea. Describes abdominal pain as sharp shooting present in the middle of her abdomen that gets worse when she has to pass a bowel movement. Her bowel movements are loose and watery at least 2 to 3 times a day. No nighttime symptoms. Has seen occasional blood on wiping. Also endorses some degree of tenesmus. Has experienced at least 2-3 lb weight loss in the last 2 months. She thinks the pain sometimes gets triggered with fatty food, and has been avoiding it for the past 1-2 weeks with some response. Therapy so far includes Bentyl and basement supplement with modest improvement. No new medications in the last 6 months. No recent travel or changes in water supply. No sick contacts. Was seen at [facility] as well as her primary care for the similar complaints. Celiac serology with IgG negative, infectious panel negative. C diff and Giardia not checked. Labs: Fecal calpro 330, CRP 0.03 Colonoscopy 04/11/22: Mucosa: Erythema congestion and erosions were noted in the rectum with sharp demarcation at 20 cm. Patchy erythema and erosions were noted in the cecum. Superficial ulcerations noted in terminal ileum up to 10 cm. Ascending, transver se, descending and sigmoid colon appeared normal on endoscopic exam. Cold forceps biopsies were obtained from terminal ileum, cecum, ascending, transverse, descending and sigmoid colon; and rectum. Path: A.? Terminal ileum, biopsy:? Small intestinal mucosa within normal limits. B.? Ileocecal valve, biopsy:? Ileocolonic mucosa with mild crypt disarray and prominent reactive lymphoid aggregate. C.? Cecum, biopsy:? Chronic, mildly active, colitis. D.? Colon, ascending, biopsy:? Colonic mucosa within normal limits. E.? Colon, transverse, biopsy:? Colonic mucosa within normal limits F. ? Colon, descending, biopsy:? Colonic mucosa within normal limits G.? Colon, sigmoid, biopsy? Colonic mucosa within normal limits: H.? Rectum, biopsy:? Chronic, mildly active, proctitis. 04/22/22: Started prednisone on 04/16. Reports complete resolution of abdominal pain and diarrhea. Now has formed bowel movements every 1-2 days. Has not seen any further blood. Also denies any rashes, joint pains or visual changes. 06/17/22: Accompanied by her daughters. Reports no abdominal symptoms when she takes the medication as prescribed, however more recently, has skipped a few doses here and there, and after skipping 2 days in a row, she notices increased abdominal pain, and either diarrhea or constipation. However, once she resumes oral mesalamine, symptoms go away within 3-4 days. Took rectal supp for a few weeks only and self discontinued. Bowel movements are formed, once every day or every other day, no blood. Patient is also status post bilateral salpingectomy 05/10/22 for permanent control. 09/02/22: Currently no abd complaints. No abd pain, diarrhea, blood in stool. Labs reviewe d and fecal calpro is 5 which represents excellent response to mesalamine. She does report missing dose pretty often however, at least 1-2 times/week and remembers when has return of abd cramping and urgency. 03/10/23: Reports no gastrointestinal complaints. Has been very compliant with her meds since last visit. No abd pain, diarrhea, blood in stool or urgency. Has not had to reach for meslamine enemas. Cont on PO mesalamine 2.4g/day. Labs reviewed and CRP remains undetectable. Fecal calpro pending. [facility] Medical History Ulcerative colitis Migraine Asthma Anxiety Surgical History H/O tubal ligation H/O colonoscopy Hx of abdominal surgery History of loop electrical excision procedure (LEEP) Family History Mother History of hypertension Hx of diabetes mellitus History of high cholesterol Father Murder Daughter In good health Daughter In good health Sister No problems noted. Brother No problems noted. Sister No problems noted. Sister No problems noted. Social History Housing: House Alcohol intake: current Alcohol intake frequency: a few times a month Patient Tobacco Use Status: Former Tobacco user Quit Date: 2021 Tobacco use type: Cigarette Cigarettes Per Day: 2 Years Smoked: 10 e-Cigarette/Vaping Use: Never Used Second Hand Smoke Exposure: No service: No Current occupational status: unemployed Gender identity: Female Cognitive needs: No Hearing needs: No Vision needs: Yes Female Reproductive History Menstrual Age of Menarche: 15 Review of Systems Const All systems reviewed & are unremarkable except as noted in HPI and below Physical Exam Vital Signs: Last Vital Signs Pulse 91 03/10/23 13:23 BP 119/78 03/10/23 13:23 BMI result Body Mass Index 28.1 Gen appear: NAD HEENT: nonicteric, no cervical lymphadenopathy Chest: CTA CVS: Regular S1/S2 Abd: soft, nontender, nondistended, bowel sounds + Ext: no peripheral edema Neuro: A/Ox3, noted to move all extremities spontaneously Psych: interacting appropriately Assessment & Plan Assessment & Plan (1) Ulcerative colitis: Code(s): K51.90 - Ulcerative colitis, unspecified, without complications Plan: 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 CD remains on differential. In clinical remission. Likely biochem remission too but fecal calpro results pending. Due for post-treatment colo. Will book this today. Plan: -Cont mesalamine 2.4 g p.o. once daily. -Mesalamine suppository prescribed for PRN use for persistent sx despite PO mesalamine. -Colonoscopy to be booked on elective basis. Split PEG prep instructions reviewed. -Pt advised to call office for any persistent sx >1w despite PO and PA therapy. Follow up after colo. Medications: New peg 3350-electrolytes 236-22.74-6.74 -5.86 gram (Golytely) as per split prep instructions, until fecal effluent is clear 240 mL PO Q10M 4,000 mL 0RF colonoscopy Coding Level of Care Code Est Pt Level 4 (36620) Diagnoses Ulcerative colitis K51.90
[2023-03-10 13:23] VITALS: BP 119/78; PULSE 91; BMI 28.1
== END 2023-03-10 14:05 | disposition home or self-care (01) ==
PROVIDERS: PCP Internal Medicine; Visit Provider Internal Medicine
DX: K51.90 Ulcerative colitis, unspecified, without complications (principal)
CPT/HCPCS: 99214

== ENCOUNTER → 2023-03-10 13:03 | Outpatient (BNVA) | payer OTHER, SELFPAY | PROVIDERS: PCP Internal Medicine; Visit Provider Internal Medicine | DX: K51.90 Ulcerative colitis, unspecified, without complications (principal) | CPT/HCPCS: 99212 ==

== ENCOUNTER 2023-03-31 09:50 | Outpatient (AMB) | payer OTHER, SELFPAY ==
--- NOTE | 2023-03-31 10:06 | AM.OFFVISNUR ---
Intake Intake Visit Reasons: T dap Vaccine Allergies No Known Allergies [No Known Allergies*] Allergy (Verified 03/10/23 13:22) Office Procedures Flu Questionnaire Does the patient have a severe egg allergy?: No Does the patient have severe life threatening allergies?: No Does the patient have a fever or illness today?: No Has the patient ever had Guillain-[place] Syndrome?: No Has the patient ever had any past reaction to a flu shot?: No Immunizations flu vacc [id number] 6mos up(PF) 60 mcg(15 mcgx4)/0.5 mL IM syringe Performing Provider: Stayc Quinones MD Performing Location: [facility] Administered by: Tamiko Ferris RN on 03/31/23 10:07 Dose Route Admin Location Dispensed Lot Number Expiration Date NDC Looping Machine Operator 0.5 mL IM Left Deltoid 0.5 mL [id number] 11/23/23 31980-169-80 GLAXOSMITHK[employer] VIS Given Date VIS Provided VIS Publication Date 03/31/23 Single Vaccine 20 Eligibility Eligibility Date Funding Source Not VFC Eligible 03/31/23 Private Boostrix Tdap 2.5 Lf unit-8 mcg-5 Lf/0.5 mL intramuscular syringe Performing Provider: Stacy Quinones MD Performing Location: [facility] Administered by: Tamiko Ferris RN on 03/31/23 10:07 Dose Route Admin Location Dispensed Lot Number Expiration Date NDC Looping Machine Operator 0.5 mL IM Left Deltoid 0.5 mL [id number] 06/13/25 [id number] [employer]LAXOSMITH[employer] VIS Given Date VIS Provided VIS Publication Date 03/31/23 Single Vaccine 20 Eligibility Eligibility Date Funding Source Not VFC Eligible 03/31/23 Private Coding Assessment & Plan Assessment & Plan Orders: Orders TDaP Immunization Today Z23 - Encounter for immunization Influenza [id number] Immunization Today Z23 - Encounter for immunization
== END 2023-03-31 10:10 | disposition home or self-care (01) ==
PROVIDERS: PCP Internal Medicine; Visit Provider Internal Medicine
DX: Z23 Encounter for immunization (principal)
CPT/HCPCS: 90471; 90472; 90686; 90715

== ENCOUNTER 2023-04-05 11:06 | Outpatient (AMB) | payer OTHER, SELFPAY ==
--- NOTE | 2023-04-05 12:23 | AM.OFFWIN_ITS ---
Intake Vital Signs 04/05/23 12:24 Height 5 ft 6 in Weight 177 lb BMI 28.6 BP 116/74 Blood Pressure Location Lt brachial Position Sitting Pulse 88 Pulse Source Pulse Oximeter Temp 98.1 F Temp Source Oral Pulse Oximetry (%) 95 Oxygen Delivery Method Room Air Intake Visit Reasons: EP, cough, congestion (masked) Intake Note: Pt is here today c/o cough and chest congestion x3days Patient Tobacco Use Status: Former Tobacco user Quit Date: 2021 Allergies No Known Allergies [No Known Allergies*] Allergy (Verified 04/05/23 12:25) HPI HPI Comments History of Present Illness Details This is a 37-year-old female with a past medical history of asthma, gastroesophageal reflux disease, ulcerative colitis and anxiety presenting for evaluation of a cough and chest congestion that she has had for the past 3 days. Patient states she is using her inhaler with an increased frequency however she does not find this helpful and continues to feel short of breath. The patient states that her daughter was diagnosed with RSV on Friday and her symptoms started the next day. Patient denies having any fevers, chills, headache, ear pain, sore throat or sinus congestion. Patient has not used any other medication besides her albuterol inhaler for treatment of her symptoms. [facility] Medical History Ulcerative colitis Migraine Asthma Anxiety Surgical History H/O tubal ligation H/O colonoscopy Hx of abdominal surgery History of loop electrical excision procedure (LEEP) Family History Mother History of hypertension Hx of diabetes mellitus History of high cholesterol Father Murder Daughter In good health Daughter In good health Sister No problems noted. Brother No problems noted. Sister No problems noted. Sister No problems noted. Social History Housing: House Alcohol intake: current Alcohol intake frequency: a few times a month Patient Tobacco Use Status: Former Tobacco user Quit Date: 2021 Tobacco use type: Cigarette Cigarettes Per Day: 2 Years Smoked: 10 e-Cigarette/Vaping Use: Never Used Second Hand Smoke Exposure: No service: No Current occupational status: unemployed Gender identity: Female Cognitive needs: No Hearing needs: No Vision needs: Yes Female Reproductive History Menstrual Age of Menarche: 15 Review of Systems Const All systems reviewed & are unremarkable except as noted in HPI and below Denies chills, Reports fatigue and Denies fever(s) Eyes Reports as per HPI ENT Reports no additional complaints Card Reports no additional complaints and Reports dyspnea Resp Reports cough, Reports dyspnea and Reports wheezing Skin/Breast Reports system reviewed and no additional complaints, except as documented Psych Reports no additional complaints Endo Reports fatigue Aller/Immun Reports no additional complaints and Reports wheezing Physical Exam Vital Signs: Last Vital Signs Temp 98.1 F 04/05/23 12:24 Pulse 88 04/05/23 12:24 BP 116/74 04/05/23 12:24 Pulse Ox 95 04/05/23 12:24 Oxygen Delivery Method Room Air 04/05/23 12:24 BMI result Body Mass Index 28.6 Patient is afebrile. Const General: cooperative, healthy appearing, comfortable and no acute distress; No ill appearing Nutritional Appearance: average body habitus Orientation/consciousness: patient oriented x3 Limitations: no limitations HEENT Head: Yes normal to inspection and Yes normocephalic Ears: hearing grossly normal bilaterally, external ears normal, TM's normal bilaterally and EAC's normal General nose exam: Normal external nose present Face and sinus: Yes normal facial exam and No sinus tenderness Mouth: Normal oral and palatal mucosa present Teeth and gingiva: dentition normal Throat: Yes posterior oropharynx normal Eyes Eyelids: Yes eyelids normal Conjunctivae: conjunctivae normal Sclerae: sclerae normal Pupils: Equal, round and reactive pupils present EOM: EOMs intact bilaterally Neck Lymphatic: no lymphadenopathy noted Resp Effort & Inspection: normal respiratory effort, able to speak in complete sentences, audible wheezes (right upper field) and no respiratory distress Auscultation: wheezes expiratory wheezes and right upper Cardio Rate: regular rate Rhythm: regular rhythm Skin General skin exam: no rashes or lesions noted Neuro General: patient oriented x3 Cranial nerves: Yes Equal, round and reactive pupils present Psych Appearance: grossly normal Mental Status: mental status grossly normal Insight: Good insight present (Psych) Judgement: Good judgement present (Psych) Assessment & Plan Assessment & Plan (1) Viral syndrome: Comment: SARS panel is ordered and pending; prednisone will be prescribed for management of this viral syndrome and asthma exacerbation. Code(s): B34.9 - Viral infection, unspecified Orders: Orders SARS-CoV2/FLU/RSV Today B34.9 - Viral infection, unspecified Medications: New methylprednisolone (Medrol (Tai)) PO PER PKG DIR 21 ea 0RF Coding Level of Care Code Est Pt Level 3 (02080) Diagnoses Viral syndrome B34.9 Time Spent (min) 20
[2023-04-05 12:24] VITALS: BP 116/74; PULSE 88; TEMP 36.7; O2SAT 95; BMI 28.6
== END 2023-04-05 13:09 | disposition home or self-care (01) ==
PROVIDERS: PCP Internal Medicine; Visit Provider Physician Assistant
DX: B34.9 Viral infection, unspecified (principal); F41.9 Anxiety disorder, unspecified
CPT/HCPCS: 99051; 99213

== ENCOUNTER 2023-04-05 13:04 | Outpatient (REF) | payer OTHER, SELFPAY ==
[2023-04-05 16:32] LABS: Influenza A PCR NEGATIVE (Negative); Influenza B PCR NEGATIVE (Negative); Resp Syncy Virus RNA Qual PCR POSITIVE (Negative); SARS COV2 PCR INHOUSE NEGATIVE (Negative)
== END 2023-04-05 13:05 | disposition home or self-care (01) ==
LOC: HO.LAB 13:04
PROVIDERS: Visit Provider Physician Assistant
DX: B34.9 Viral infection, unspecified (principal); Z11.52 Encounter for screening for COVID-19
CPT/HCPCS: 0241U

== ENCOUNTER 2023-04-17 11:00 | Emergency (ER) | payer OTHER, SELFPAY ==
--- NOTE | ~2023-04-17 | CT_ITS ---
EXAMINATION: CT HEAD WITHOUT CONTRAST CLINICAL INFORMATION: Severe headache and dizziness. COMPARISON: CT scan of the head 06/07/2022. TECHNIQUE: Multidetector CT imaging of the head was obtained without the use of intravenous contrast. Coronal and sagittal reformatted images were generated at the technologist workstation. This CT examination was performed using dose optimization techniques as appropriate, variously including the following: *Automated exposure control *Adjustment of mA and/or kV according to patient size (this includes techniques or standardized protocols for targeted exams where dose is matched to indication/reason for exam; i.e. extremities or head) *Use of iterative reconstruction technique DLP: 764 mGy-cm. FINDINGS: There is no evidence of acute intracranial hemorrhage or territorial infarction. No abnormal mass-effect or midline shift is seen. Morgan to white matter differentiation is well preserved. No extra-axial fluid collections are identified. The ventricles and sulci are normal in size. There is no abnormal attenuation within the brain parenchyma. There are no acute osseous or soft tissue abnormalities. The mastoid air cells are well-aerated. There is moderate to severe mucoperiosteal thickening with aerosolized secretions in the right greater than left ethmoid sinuses. There is opacification at the left frontoethmoidal recess. There appear to be fluid levels in the left maxillary and left sphenoid sinuses. CT/CT head/brain wo IV con IMPRESSION: 1. There are no acute bleeds or territorial infarcts. No masses are demonstrated. 2. There is moderate to severe acute and chronic paranasal sinus disease.
--- NOTE | 2023-04-17 11:11 | ED.GENADULT ---
HPI - General Adult General Chief complaint: Headache Stated complaint: Severe headache Time Seen by Provider: 04/17/23 11:10 Source: patient Mode of arrival: ambulatory Limitations: no limitations History of Present Illness HPI narrative: Patient is a 37 year old assigned female at with a history of asthma, anxiety, BPPV, and migraines presenting to the emergency department today with a headache. Patient states that over the last 2 weeks she has had intermittent headaches that have not resolved. Patient states that she was recently diagnosed with RSV and given amoxicillin for a possible sinus infection a few days ago but the headache persists. Patient denies any dizziness, lightheadedness, abdominal pain, nausea, vomiting, fever, chills, blurry vision, double vision, loss of vision, chest pain, difficulty breathing, shortness of breath, back pain, night sweats, pain with urination, increased urinary frequency, increased urinary urgency, blood in her urine or stool, syncope or a near syncopal episode, recent trauma or falls, bowel incontinence, bladder incontinence, bowel retention, bladder retention, or any other complaints at this time. Onset (ago): week(s) (2) Location: head Radiation: non-radiation Severity: mild Severity scale (1-10): 4 Quality: aching and dull Pain Consistency: intermittent Relieving factors: none Exacerbating factors: none Associated symptoms: denies other symptoms Treatments prior to arrival: NSAID and other (amoxicillin) Related Data Previous Rx's Medication Instructions Recorded Ventolin HFA 90 mcg/actuation 2 puff inhalation Q6H PRN 09/02/22 aerosol inhaler (albuterol sulfate) shortness of breath or wheezing 30 days #8 grams mesalamine 1,000 mg rectal 1 g GA BEDTIME 3 weeks #30 ea 09/02/22 suppository mesalamine 1.2 gram tablet,delayed 2.4 g (2 x 1.2 gram) PO DAILY 90 09/02/22 release days #180 tabs fluticasone propionate 44 1 puff inhalation BID 30 days 12/27/22 mcg/actuation HFA aerosol inhaler #10.6 grams (Flovent HFA) lidocaine 5 % topical patch 2 patch topical DAILY #30 ea 03/07/23 omeprazole 20 mg capsule,delayed 20 mg PO DAILY #90 caps 03/21/23 release methylprednisolone 4 mg tablets in See Rx Instructions PO PER PKG DIR 04/05/23 a dose pack (Medrol (Tai)) #21 ea guaifenesin 600 mg tablet, 600 mg PO Q12H PRN congestion 5 04/10/23 extended release 12 hr (Mucinex) days #10 tabs amoxicillin 500 mg tablet 500 mg PO BID 7 days #14 tabs 04/16/23 doxycycline hyclate 100 mg tablet 100 mg PO BID 7 days #14 tabs 04/17/23 Allergies Allergy/AdvReac Type Severity Reaction Status Date / Time No Known Allergies Allergy Verified 04/17/23 11:35 [No Known Allergies*] Review of Systems Constitutional: Constitutional: Reports no additional constitutional complaints, Denies chills, Denies fever(s), Reports headache(s) and Denies night sweats Eyes: Eyes: Reports no additional eye complaints, Denies blurry vision, Denies change in vision, Denies diplopia, Denies eye discharge, Denies loss of vision and Denies eye pain ENT: Denies dizziness, Reports headache(s) and Reports sinus pain Cardiovascular: Cardiovascular: Reports no additional cardiovascular complaints, Denies chest pain, Denies lightheadedness, Denies Loss of Consciousness and Denies dyspnea Respiratory: Respiratory: Reports no additional respiratory complaints and Denies dyspnea Gastrointestinal: Gastrointestinal: Reports no additional gastrointestinal complaints, Denies abdominal pain, Denies melena, Denies hematochezia, Denies change in bowel habits and Denies change in stool character Genitourinary: Genitourinary: Denies hematuria, Denies urinary frequency, Denies dysuria, Denies urinary incontinence, Denies urinary hesitancy and Denies urinary urgency Musculoskeletal: Musculoskeletal: Reports no additional musculoskeletal complaints, Denies numbness and Denies tingling Neurologic: Denies dizziness, Reports headache(s), Denies loss of vision, Denies numbness and Denies tingling Psychiatric: Psychiatric: Reports no additional psychiatric complaints Endocrine: Endocrine: Reports no additional endocrine complaints Hematologic/Lymphatic: Hematologic/Lymphatic: Reports no additional hematologic/lymphatic complaints Allergic/Immunologic: Allergic/Immunologic: Reports no additional allergic/immunologic complaints PMFSH Past Medical History Attestation statement: The following information was validated with the patient. Source: old records reviewed and nursing notes reviewed Medical History RSV (acute bronchiolitis due to respiratory syncytial virus) Viral syndrome Memory loss Physical exam Central abdominal pain Upper respiratory tract infection Encounter for management and injection of depo-Provera Sterilization Family planning Pre-op evaluation Vaginal discharge Well woman exam with routine gynecological exam Preop cardiovascular exam Fungal dermatitis Pre-op evaluation Depot contraception Depo-Provera contraceptive status Ulcerative colitis Migraine Asthma Anxiety Surgical History H/O tubal ligation H/O colonoscopy Hx of abdominal surgery History of loop electrical excision procedure (LEEP) Family History Family History Mother History of hypertension Hx of diabetes mellitus History of high cholesterol Father Murder Daughter In good health Daughter In good health Sister No problems noted. Brother No problems noted. Sister No problems noted. Sister No problems noted. Social History Housing: House Alcohol intake: current Alcohol intake frequency: a few times a month Alcohol type: wine Patient Tobacco Use Status: Former Tobacco user Quit Date: 2021 Tobacco use type: Cigarette Cigarettes Per Day: 2 Years Smoked: 10 Smoked in Last 30 Days: Yes e-Cigarette/Vaping Use: Never Used Second Hand Smoke Exposure: No Use of substances other than those prescribed or required for medical reasons: No Advance Directives: No Advance Directives Information Provided: No Patient : No service: No Current occupational status: unemployed Gender identity: Female Cognitive needs: No Hearing needs: No Vision needs: Yes Physical Exam ED Vital Signs: Vital Signs - 24 hr 04/17/23 11:35 Temperature 98.1 F Pulse Rate 67 Respiratory Rate 18 Blood Pressure 140/89 H Pulse Oximetry 96 BMI result Body Mass Index 28.6 Const General: cooperative, no acute distress, alert and awake Nutritional Appearance: well nourished Orientation/consciousness: patient oriented x3 Limitations: no limitations HENMT Head: Yes normal to inspection and Yes atraumatic Ears: hearing grossly normal bilaterally and external ears normal General nose exam: Normal external nose present, no nasal discharge noted and no epistaxis Face and sinus: Yes normal facial exam, No abrasion and No laceration Mouth: Normal oral and palatal mucosa present, no drooling and no muffled voice Eyes General: appearance normal, both eyes and all related structures Periorbital: periorbital findings normal Eyelids: Yes eyelids normal Conjunctivae: conjunctivae normal Pupils: Equal, round and reactive pupils present EOM: EOMs intact bilaterally Neck Neck: Yes normal visual inspection, Yes full ROM and Yes no lymphadenopathy Chest Chest palpation & inspection: normal inspection of the chest Resp Effort & Inspection: normal respiratory effort and able to speak in complete sentences Auscultation: clear to auscultation bilaterally Cardio Rate: regular rate Rhythm: regular rhythm GI Inspection: Yes normal to inspection Neuro General: patient oriented x3 and moves all extremities Cranial nerves: Yes Equal, round and reactive pupils present Cognition (Neuro): normal cognition Motor exam (neuro): 5/5 motor strength present throughout Sensory Exam: Normal double simultaneous stimulation for sensation Coordination: [id number] test normal Extrem General: Yes normal to inspection, Yes full ROM and Yes capillary refill normal Psych Appearance: grossly normal Mental Status: mental status grossly normal Affect: normal affect Attitude: cooperative Thought process: Normal thought process present Thought content: Normal thought content present Insight: Good insight present (Psych) Medications Administered Discontinued Medications Generic Name Dose Route Start Last Admin Trade Name Joe PRN Reason Stop Dose Admin Sodium Chloride 1,000 mls @ 999 mls/hr 04/17/23 11:30 04/17/23 12:56 Ns IV 04/17/23 12:30 Infused .Q1H1M ROSALIA Infusion Ketorolac Tromethamine 15 mg 04/17/23 11:18 04/17/23 11:51 Ketorolac Tromethamine 15 Mg/Ml Vial IVPUSH 04/17/23 11:19 15 mg ONCE ONE Administration Ondansetron HCl 4 mg 04/17/23 11:18 04/17/23 11:51 Ondansetron Hcl 4 Mg/2 Ml Vial IVPUSH 04/17/23 11:19 4 mg ONCE ONE Administration Medical Decision Making Medical Decision Making [facility] Narrative: Patient is a 37 year old assigned female at with a history of migraines, asthma, BPPV, and anxiety presenting to the emergency department today with sinus congestion a headache. Patient's physical exam was unremarkable. Patient's blood work was unremarkable. Patient's urine showed no acute process. Patient's head CT showed sinusitis. Patient's RSV test was positive however, that was to be expected and the patient was aware of her RSV infection. I explained my physical exam findings as well as all test results to the patient. I answered all questions asked by the patient. I stressed the importance of the patient taking her medication as prescribed. I stressed the importance of the patient following up with her primary care provider. I stressed the importance of the patient returning to the emergency department immediately if her symptoms were to worsen or if she were to develop any dizziness, shortness of breath, difficulty breathing, chest pain, blurry vision, loss of vision, nausea, vomiting, abdominal pain, fever, chills, back pain, or any other complaints. Patient verbalized agreement and understanding with this treatment plan and discharge. Differential Diagnosis Differential Diagnoses: The differential diagnosis associated with the presentation includes Sinusitis RSV COVID-19 Influenza Headache Migraine Admission/Observation Consideration of admission/observation: Escalation of care including admission/observation considered Patient would have been admitted to the hospital had her work up had any findings where hospital admission was appropriate and her clinical presentation warranted hospital admission. Lab Data [facility] Lab Attestation statement: I reviewed the patient's lab results. My interpretation of these results are in the [facility] Rationale portion of this note. 04/17/23 11:47 04/17/23 11:47 Labs: Lab Results 04/17/23 04/17/23 04/17/23 Range/Units 11:47 11:50 12:40 WBC 8.2 (4.8-10.8) X10*3/uL RBC 4.00 L (4.20-5.50) X10*6/uL Hgb 12.0 (12.0-16.0) g/dl Hct 35.1 L (37.0-47.0) % MCV 87.8 (80.0-98.0) fL MCH 30.0 (27.0-33.0) pg MCHC 34.2 (31.0-35.0) g/dl RDW 11.9 (11.0-16.0) % Plt Count 399 D (160-400) X10*3/uL MPV 8.6 L (9.4-12.3) fL Immature Gran % (Auto) 0.4 (0.0-0.4) % Neut % (Auto) 64.7 (45-73) % Lymph % (Auto) 22.2 (20-40) % [place] % (Auto) 7.6 (2-11) % Eos % (Auto) 4.5 H (0-4) % Baso % (Auto) 0.6 (0-2) % Lymph # (Auto) 1.8 (1.2-4.9) X10*3/uL [place] # (Auto) 0.6 (0.1-1.2) X10*3/uL Eos # (Auto) 0.4 (0.0-0.4) X10*3/uL Baso # (Auto) 0.1 (0.0-0.2) X10*3/uL Abs Immat Gran (auto) 0.03 (0.00-0.03) X10*3/uL Absolute Neuts (auto) 5.3 (2.0-8.3) x10*3/uL Absolute Nucleated RBC 0.000 (0.0-0.012) X10*3/uL Nucleated RBC % (auto) 0.0 (0.0-0.2) /100WBC Sodium 137 (135-145) mmol/L Potassium 4.4 (3.3-5.1) mmol/L Chloride 106 (96-108) mmol/L Carbon Dioxide 24 (22-29) mmol/L Anion Gap 11 L (12-20) BUN 8 L (9-16) mg/dL Creatinine 0.75 (0.5-1.4) mg/dL Estim Creat Clear Calc 111.9 Estimated GFR > 60 Random Glucose 102 (60-115) mg/dL Calcium 9.5 (8.4-10.2) mg/dL Magnesium 1.8 (1.6-2.6) mg/dL Total Bilirubin 0.4 (0.0-1.0) mg/dL AST 15 (5-31) U/L ALT 15 (0-31) U/L Alkaline Phosphatase 87 (39-117) U/L Total Protein 7.9 (6.5-8.0) g/dL Albumin 4.2 (3.5-5.0) g/dL Urine Color Yellow Urine Appearance Clear Urine pH 5.5 (5.0-9.0) Ur Specific [place] 1.010 (1.005-1.025) Urine Protein Negative (Neg-Trace) mg/dL Urine Glucose (UA) Negative (Negative) mg/dL Urine Ketones Negative (Negative) mg/dL Urine Blood Negative (Negative) Urine Nitrite Negative (Negative) Ur Leukocyte Esterase Negative (Negative) Influenza Type A (PCR) NEGATIVE (Negative) Influenza Type B (PCR) NEGATIVE (Negative) RSV RNA Qual (PCR) POSITIVE A (Negative) SARS-CoV-2 RNA (RT-PCR) NEGATIVE (Negative) Independent Interpretation I performed an independent interpretation of an: CT Scan Interpretation: My interpretation is in agreement with the radiologist's impression of this imaging study. EXAMINATION: CT HEAD WITHOUT CONTRAST CLINICAL INFORMATION: Severe headache and dizziness. COMPARISON: CT scan of the head 06/07/2022. TECHNIQUE: Multidetector CT imaging of the head was obtained without the use of intravenous contrast. Coronal and sagittal reformatted images were generated at the technologist workstation. This CT examination was performed using dose optimization techniques as appropriate, variously including the following: *Automated exposure control *Adjustment of mA and/or kV according to patient size (this includes techniques or standardized protocols for targeted exams where dose is matched to indication/reason for exam; i.e. extremities or head) *Use of iterative reconstruction technique DLP: 764 mGy-cm. FINDINGS: There is no evidence of acute intracranial hemorrhage or territorial infarction. No abnormal mass-effect or midline shift is seen. Morgan to white matter differentiation is well preserved. No extra-axial fluid collections are identified. The ventricles and sulci are normal in size. There is no abnormal attenuation within the brain parenchyma. There are no acute osseous or soft tissue abnormalities. The mastoid air cells are well-aerated. There is moderate to severe mucoperiosteal thickening with aerosolized secretions in the right greater than left ethmoid sinuses. There is opacification at the left frontoethmoidal recess. There appear to be fluid levels in the left maxillary and left sphenoid sinuses. CT/CT head/brain wo IV con IMPRESSION: 1. There are no acute bleeds or territorial infarcts. No masses are demonstrated. 2. There is moderate to severe acute and chronic paranasal sinus disease. Dictated By: ARIANA BALDERRAMA MD Signed By: Electronically signed by ARIANA BALDERRAMA MD 04/17/23 1213 Radiology Impression Discussion of test interpretation with radiology: I have reviewed the radiologist's reading. Prescription Management I considered prescription management with: Antibiotic (patient prescribed an antibiotic for her sinusitis) Discharge Plan Discharge Clinical Impression: Sinusitis, Headache Patient Disposition: Home, Self-Care Instructions: Sinusitis (ED), Acute Headache (DC) Additional Instructions: Follow up with your primary care provider. Return to the emergency department immediately if your symptoms worsen or if you develop any dizziness, shortness of breath, difficulty breathing, chest pain, blurry vision, loss of vision, nausea, vomiting, abdominal pain, fever, chills, back pain, or any other complaints. Prescriptions: New doxycycline hyclate 100 mg tablet 100 mg PO BID 7 Days Qty: 14 0RF No Action fluticasone propionate [Flovent HFA] 44 mcg/actuation HFA aerosol inhaler 1 puff inhalation BID 30 Days Qty: 10.6 5RF Rx Instructions: administer with spacer omeprazole 20 mg capsule,delayed release(DR/EC) 20 mg PO DAILY Qty: 90 0RF methylprednisolone [Medrol (Tai)] 4 mg tablets,dose pack See Rx Instructions PO PER PKG DIR Qty: 21 0RF Rx Instructions: PO PER PKG DIR guaifenesin [Mucinex] 600 mg tablet extended release 12hr 600 mg PO Q12H PRN (Reason: congestion) 5 Days Qty: 10 0RF amoxicillin 500 mg tablet 500 mg PO BID 7 Days Qty: 14 0RF albuterol sulfate [Ventolin HFA] 90 mcg/actuation HFA aerosol inhaler 2 puff inhalation Q6H PRN (Reason: shortness of breath or wheezing) 30 Days Qty: 8 2RF lidocaine 5 % adhesive patch,medicated 2 patch topical DAILY Qty: 30 0RF Rx Instructions: leave on most painful area for up to 12 hrs mesalamine 1.2 gram tablet,delayed release (DR/EC) 2.4 g PO DAILY 90 Days Qty: 180 2RF mesalamine 1,000 mg suppository 1 g GA BEDTIME 21 Days Qty: 30 0RF Referrals: Stacy Guzmán MD [Primary Care Provider] - Print Language: Wolof
[2023-04-17 11:35] VITALS: BP 140/89; PULSE 67; RESP 18; TEMP 36.7; O2SAT 96; BMI 28.6
[2023-04-17 11:50] LABS: MANUAL DIFF FLAG NO
[2023-04-17] MEDS: ondansetron HCL 4 MG/2 ML VIAL IVPUSH (11:51)
[2023-04-17] MEDS: 0.9 % Sodium Chloride 1,000 ML 999 ML IV (11:51)
[2023-04-17] MEDS: Ketorolac Tromethamine 15 MG/ML VIAL IVPUSH (11:51)
--- NOTE | 2023-04-17 11:56 | PC.NURSE ---
pt a&ox4, vss, reporting 10/10 intermittent headaches post RSV diagnosis 2 weeks ago, worse than usual migraines, has been taking sumatriptan and excedrin migraine w little relief. 20G IV placed left AC, labs drawn, 1LNS running, medicated per JUL. lights dimmed, pt resting quietly pending lab and CT scan results. no new orders at this time.
[2023-04-17 12:01] LABS: Basophils Absolute Auto 0.1 X10*3/uL (0.0-0.2); Basophils Percent Auto 0.6 % (0-2); Eosinophils Absolute Auto 0.4 X10*3/uL (0.0-0.4); Eosinophils Percent Auto 4.5 % (0-4); Hematocrit 35.1 % (37.0-47.0); Imm Gran Abs Auto 0.03 X10*3/uL (0.00-0.03); Imm Gran Pct Auto 0.4 % (0.0-0.4); Lymphocytes Absolute Auto 1.8 X10*3/uL (1.2-4.9); Lymphocytes Percent Auto 22.2 % (20-40); Mean Corpuscular HGB Conc 34.2 g/dl (31.0-35.0); Mean Corpuscular Volume 87.8 fL (80.0-98.0); Mean Platelet Volume 8.6 fL (9.4-12.3); Monocytes Absolute Auto 0.6 X10*3/uL (0.1-1.2); Monocytes Percent Auto 7.6 % (2-11); Neutrophils Absolute Auto 5.3 x10*3/uL (2.0-8.3); Neutrophils Percent Auto 64.7 % (45-73); Platelet Count 399 X10*3/uL (160-400); Red Cell Distribution Width 11.9 % (11.0-16.0); White Blood Count 8.2 X10*3/uL (4.8-10.8)
[2023-04-17 12:05] LABS: Alanine Aminotransferase 15 U/L (0-31); Albumin Level 4.2 g/dL (3.5-5.0); Alkaline Phosphatase 87 U/L (39-117); Anion Gap 11 (12-20); Aspartate Amino Transferase 15 U/L (5-31); Bilirubin Total 0.4 mg/dL (0.0-1.0); Blood Urea Nitrogen 8 mg/dL (9-16); Calcium 9.5 mg/dL (8.4-10.2); Carbon Dioxide 24 mmol/L (22-29); Chloride 106 mmol/L (96-108); Creatinine Clr Calc Pharmacy 111.9; Estimated Glomerular Filt Rate > 60; Glucose Random 102 mg/dL (60-115); Magnesium 1.8 mg/dL (1.6-2.6); Potassium 4.4 mmol/L (3.3-5.1); Sodium 137 mmol/L (135-145); Total Protein 7.9 g/dL (6.5-8.0)
[2023-04-17 12:33] LABS: Influenza A PCR NEGATIVE (Negative); Influenza B PCR NEGATIVE (Negative); Resp Syncy Virus RNA Qual PCR POSITIVE (Negative); SARS COV2 PCR INHOUSE NEGATIVE (Negative)
--- NOTE | 2023-04-17 12:41 | PC.NURSE ---
urine sample obtained.
[2023-04-17 12:45] LABS: Appearance Urine Clear; Color Urine Yellow; Glucose Urine UA Negative (Negative); Leukocyte Esterase Urine Negative (Negative); Nitrite Urine Negative (Negative); PH 5.5 (5.0-9.0); Urine Blood Negative (Negative); Urine Ketones Negative (Negative); Urine Protein Negative (Neg-Trace)
== END 2023-04-17 13:25 | disposition home or self-care (01) ==
PROVIDERS: Physician Assistant Medical; Emergency Provider Emergency Medicine; PCP Internal Medicine
DX: J01.20 Acute ethmoidal sinusitis, unspecified (principal); J32.2 Chronic ethmoidal sinusitis; R51.9 Headache, unspecified; B97.4 Respiratory syncytial virus as the cause of diseases classified elsewhere; Z20.822 Contact with and (suspected) exposure to COVID-19; Z20.828 Contact with and (suspected) exposure to other viral communicable diseases; Z87.891 Personal history of nicotine dependence
CPT/HCPCS: 0241U; 70450; 80053; 81003; 83735; 85025; 96361; 96374; 96375; 99284; J1885; J2405

== ENCOUNTER 2023-04-19 12:18 | Outpatient (AMB) | payer OTHER, SELFPAY ==
--- NOTE | 2023-04-19 13:21 | MHC.OFFWIV ---
Intake Vital Signs 04/19/23 13:23 Height 5 ft 6 in Weight 78.925 kg BMI 28.1 BP 122/76 Blood Pressure Location Rt brachial Position Sitting Pulse 78 Pulse Source Pulse Oximeter Pulse Oximetry (%) 98 Oxygen Delivery Method Room Air Intake Visit Reasons: EP Migraine Intake Note: Patient here for migraines for about 2 weeks and they havent been as bad but have progressively worsened. Did go to ED for headaches and was advised she had chronic sinusitis and was put on doxycycline which has helped a little but they are still very bad. Patient Tobacco Use Status: Former Tobacco user Quit Date: 2021 Allergies No Known Allergies [No Known Allergies*] Allergy (Verified 04/17/23 11:35) Do you need a note to return to daycare/school/sports/work: No HPI HPI Comments History of Present Illness Details 37-year-old female presents with persistent headache, consistent with prior migraines however it is not associated with her menstrual cycle. PFSH Medical History RSV (acute bronchiolitis due to respiratory syncytial virus) Viral syndrome Memory loss Physical exam Central abdominal pain Upper respiratory tract infection Encounter for management and injection of depo-Provera Sterilization Family planning Pre-op evaluation Vaginal discharge Well woman exam with routine gynecological exam Preop cardiovascular exam Fungal dermatitis Pre-op evaluation Depot contraception Depo-Provera contraceptive status Ulcerative colitis Migraine Asthma Anxiety Surgical History H/O tubal ligation H/O colonoscopy Hx of abdominal surgery History of loop electrical excision procedure (LEEP) Family History Mother History of hypertension Hx of diabetes mellitus History of high cholesterol Father Murder Daughter In good health Daughter In good health Sister No problems noted. Brother No problems noted. Sister No problems noted. Sister No problems noted. Housing: House Alcohol intake: current Alcohol intake frequency: a few times a month Alcohol type: wine Patient Tobacco Use Status: Former Tobacco user Quit Date: 2021 Tobacco use type: Cigarette Cigarettes Per Day: 2 Years Smoked: 10 e-Cigarette/Vaping Use: Never Used Second Hand Smoke Exposure: No service: No Current occupational status: unemployed Gender identity: Female Cognitive needs: No Hearing needs: No Vision needs: Yes Female Reproductive History Menstrual Age of Menarche: 15 Review of Systems Const Details: Constitutional: No Fever, No Chills ENT/Mouth: No Ear Pain, No Hoarseness, No sore throat Eyes: No Eye Pain, No Swelling, No Redness, No Foreign Body Cardiovascular: No Chest Pain, No SOB Respiratory: No Cough, No Dyspnea Gastrointestinal: No Nausea, No Vomiting, No Diarrhea, No abdominal Pain Genitourinary: No Dysuria, No Hematuria Musculoskeletal: No joint pain, No Myalgias, No Joint Swelling Skin: No Skin lacerations, No rash Neuro: No Weakness, No Numbness, No Paresthesias, No Loss of Consciousness, No Dizziness, positive migraine Headache, positive photophobia All systems reviewed & are unremarkable except as noted in HPI and below Physical Exam Vital Signs: Last Vital Signs Pulse 78 04/19/23 13:23 BP 122/76 04/19/23 13:23 Pulse Ox 98 04/19/23 13:23 Oxygen Delivery Method Room Air 04/19/23 13:23 BMI result Body Mass Index 28.1 Appearance: Alert. Oriented X3. No acute distress. Eyes: Pupils equal, round and reactive to light. Neck: Normal inspection. CVS: Normal heart rate and rhythm. Respiratory: No respiratory distress. Skin: Skin warm and dry. Normal skin color. Normal skin turgor. Neuro: No motor deficit. No sensory deficit. Gait well balanced well coordinated. Assessment & Plan Assessment & Plan (1) Migraines: Code(s): G43.909 - Migraine, unspecified, not intractable, without status migrainosus Plan 37-year-old female presents for persistent migraine headache. She was evaluated at [facility] on 04/17/2023, given medications for a sinus infection, states that the doxycycline has improved her headache somewhat, however has had a persistent headache since. She states that this headache is a little bit different than prior headaches, prior migraines are associated with her menstrual cycle. She did have a CT scan on the which was negative for acute findings, and had a relatively negative lab workup. Patient does not have any neural logical or neurovascular deficits at this time. I do feel like this patient would benefit from migraine medications. She states that she has used sumatriptan, Excedrin migraine, and other various ksng-opm-wiyywnk measures with little effect. I did prescribe Fioricet for this patient, she does require prior authorization, and has an appointment with Dr. Davis on Friday. Patient will attempt to purchase this medication out of pocket verses utilizing insurance. Patient verbalized understanding of discharge instructions. Verbalized understandings of signs and symptoms indicating need for emergent intervention. Medications: New mhovkbcqzs-hdbapomtsuzrg-yjoa 50-300-40 mg (Fioricet) May take 2nd tablet in 1 hour if 1st tablet is ineffective. 1 cap PO Q6H PRN 30 caps 0RF pain Patient Instructions: You were evaluated for migraine headache. Please take Fioricet 1-2 tablets as needed every 6 hours for migraine headache. Please start with 1 tablet, if 1 tablet is not effective after an hour then you may repeat a 2nd dose. You may consider vestibular therapy which is offered by the physical therapy department at this facility. Please ask Dr. Davis for referral. Thank you for choosing this urgent care for evaluation. Please follow-up with primary care physician as needed. Return to the emergency department for any new, concerning, or worsening symptoms. Coding Level of Care Code Est Pt Level 3 (27860) Diagnoses Migraines G43.909
[2023-04-19 13:23] VITALS: BP 122/76; PULSE 78; O2SAT 98; BMI 28.1
== END 2023-04-19 14:41 | disposition home or self-care (01) ==
PROVIDERS: PCP Internal Medicine; Visit Provider Nurse Practitioner Family
DX: G43.909 Migraine, unspecified, not intractable, without status migrainosus (principal)
CPT/HCPCS: 99051; 99213

== ENCOUNTER 2023-04-21 17:25 | Outpatient (AMB) | payer OTHER, SELFPAY ==
[2023-04-21 17:28] VITALS: BP 118/76; BMI 27.6
--- NOTE | 2023-04-21 17:28 | MHC.PC.OV ---
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 Accompanied by: Self / Same As Patient Allergies No Known Allergies [No Known Allergies*] Allergy (Verified 04/21/23 17:36) Medication List - Last Reconciled 04/21/23 by Stacy Quinones MD dioqcahbwu-xcdcchqgnivwg-ycvj 50-300-40 mg (Fioricet) 1 cap PO Q6H PRN doxycycline hyclate 100 mg PO BID 7 days fluticasone propionate 44 mcg/actuation (Flovent HFA) 1 puff inhalation BID 30 days guaifenesin ER (Mucinex) 600 mg PO Q12H PRN 5 days lidocaine 5% 2 patches topical DAILY mesalamine 2.4 grams (2 x 1.2 gram) PO DAILY 90 days omeprazole 20 mg PO DAILY Ventolin HFA 90 mcg/actuation (albuterol sulfate) 2 puffs inhalation Q6H PRN 30 days NS Tobacco use date assessed: 09/02/22 Dental Screening Dental Screen Date: 04/21/23 Did you have a dental visit in the last 12 months?: Yes Did you have a dental problem in the last 6 months where you did not have access to dental care?: No Was dental information given to patient?: Patient has dentist HPI HPI Comments History of Present Illness Details This is a 37-year-old female that comes for her physical exam. Last Pap smear was 2020 was normal. No chest pain or shortness of breath. Asthma and migraines have been well control. Migraines happen 3 days per month and this is follow by Neurology. Has ulcerative colitis control with mesalamine and this is follow by Gastroenterology. [facility] Medical History (Updated 04/22/23 @ 07:58 by Stacy Quinones MD) Physical exam RSV (acute bronchiolitis due to respiratory syncytial virus) Viral syndrome Memory loss Central abdominal pain Upper respiratory tract infection Encounter for management and injection of depo-Provera Sterilization Family planning Pre-op evaluation Vaginal discharge Well woman exam with routine gynecological exam Preop cardiovascular exam Fungal dermatitis Pre-op evaluation Depot contraception Depo-Provera contraceptive status Ulcerative colitis Migraine Asthma Anxiety Surgical History H/O tubal ligation H/O colonoscopy Hx of abdominal surgery History of loop electrical excision procedure (LEEP) Family History Mother History of hypertension Hx of diabetes mellitus History of high cholesterol Father Murder Daughter In good health Daughter In good health Sister No problems noted. Brother No problems noted. Sister No problems noted. Sister No problems noted. Housing: House Alcohol intake: current Alcohol intake frequency: a few times a month Alcohol type: wine Patient Tobacco Use Status: Former Tobacco user Quit Date: 2021 Tobacco use type: Cigarette Cigarettes Per Day: 2 Years Smoked: 10 e-Cigarette/Vaping Use: Never Used Second Hand Smoke Exposure: No service: No Current occupational status: unemployed Gender identity: Female Cognitive needs: No Hearing needs: No Vision needs: Yes Female Reproductive History Menstrual Age of Menarche: 15 Questionnaire Thrive Questionnaire Date Thrive assessed: 09/02/22 SARTHAK-7 AMB Questionnaire SARTHAK-7 Date SARTHAK - 7 assessed: 09/02/22 Source: Developed by Drs. Efraín Azevedo, Jordana Lyles, Hal Guzman and colleagues, with an educational jared from [employer]. Review of Systems Const All systems reviewed & are unremarkable except as noted in HPI and below Eyes Reports no additional complaints, Denies change in vision and Denies other visual disturbances Card Denies chest pain at rest, Denies chest pain with activity, Denies edema, Denies irregular heart rhythm, Denies claudication, Denies dyspnea, Denies dyspnea on exertion, Denies orthopnea, Denies paroxysmal nocturnal dyspnea and Denies slow heart rate Resp Denies cough, Denies dyspnea and Denies dyspnea on exertion GI Denies abdominal pain, Denies change in bowel habits, Denies excessive flatus, Denies nausea and Denies vomiting Denies urinary incontinence, Denies urinary hesitancy and Denies urinary urgency Musc Denies abnormal gait, Denies atrophy, Denies deformity and Denies limited range of motion Skin/Breast Denies bleeding lesions, Denies changing lesions and Denies rash Neuro Denies abnormal gait, Denies behavioral changes, Denies confusion and Denies lack of coordination Psych Denies behavioral changes and Denies confusion Physical exam (Primary Care) Vital Signs: Last Vital Signs BP 118/76 04/21/23 17:28 BMI result Body Mass Index 27.6 Tobacco/Smoking Status: Tobacco use Status Tobacco use date assessed 09/02/22 04/21/23 17:34 Patient Tobacco Use Status Former Tobacco user 04/21/23 17:34 Tobacco use type Cigarette 04/21/23 17:34 e-Cigarette/Vaping Use Never Used 04/21/23 17:34 Thrive Assessment: Date of Thrive Assessment Date Thrive assessed 09/02/22 04/21/23 17:34 Const General: No confusion Orientation/consciousness: patient oriented x3 and No confusion HENMT Head: Yes normal to inspection, Yes normocephalic and Yes atraumatic Ears: external ears normal Eyes General: appearance normal, both eyes and all related structures Eyelids: Yes eyelids normal Conjunctivae: conjunctivae normal Neck Neck: Yes normal visual inspection and Yes supple Resp Effort & Inspection: normal respiratory effort Auscultation: clear to auscultation bilaterally Cardio Jugular venous distension: no JVD Rate: regular rate Rhythm: regular rhythm Heart sounds: S1 normal heart sound present and S2 normal heart sound present GI Inspection: Yes normal to inspection Palpation (GI): Soft to palpation and nontender Auscultation: normal bowel sounds Skin General skin exam: no rashes or lesions noted Neuro General: patient oriented x3, no focal motor deficits and No confusion Extrem General: Yes full ROM Psych Appearance: grossly normal Assessment and Plan Assessment & Plan (1) Physical exam: Code(s): Z00.00 - Encounter for general adult medical examination without abnormal findings Plan: Repeat in a year. (2) Ulcerative colitis: Code(s): K51.90 - Ulcerative colitis, unspecified, without complications Plan: Continue mesalamine. Follow-up by Gastroenterology. Medications: New rizatriptan do not exceed 6 doses per 24 hrs 5 mg PO Q2-4H PRN 5 tabs 0RF migraine headache 5 days Changed From jfqiimbzhc-dcrspgcjpngmb-rsef 50-300-40 mg (Fioricet) May take 2nd tablet in 1 hour if 1st tablet is ineffective. 1 cap PO Q6H PRN 30 caps 0RF pain To vcuzrgoqyq-djibvzszsevea-mrhr 50-300-40 mg (Fioricet) May take 2nd tablet in 1 hour if 1st tablet is ineffective. 1 cap PO Q8H PRN 30 caps 0RF pain 30 days Coding Level of Care Code Est Pt Prev Care 18-39y(44888) Diagnoses Physical exam Z00.00 Ulcerative colitis K51.90 Time Spent (min) 35
== END 2023-04-21 17:50 | disposition home or self-care (01) ==
LOC: HO.HMGH 17:25
PROVIDERS: PCP Internal Medicine; Visit Provider Internal Medicine
DX: Z00.00 Encounter for general adult medical examination without abnormal findings (principal); K51.90 Ulcerative colitis, unspecified, without complications
CPT/HCPCS: 99395

== ENCOUNTER 2023-04-29 10:49 | Outpatient (AMB) | payer OTHER, SELFPAY ==
--- NOTE | 2023-04-29 10:50 | A.OFFVIS_ITS ---
Intake Vital Signs 04/29/23 10:54 Height 5 ft 6 in Weight 174 lb 2.643 oz BMI 28.1 BP 112/77 Blood Pressure Location Lt brachial Position Sitting Pulse 70 Intake Visit Reasons: Fernando patient, sick visit she is not feeling well Intake Note: She states that she is getting symptoms back up again almost like flare ups. She gets pains in the stomach, Diarrhea and blood when she has a BM. Allergies No Known Allergies [No Known Allergies*] Allergy (Verified 04/29/23 10:55) HPI Fernando patient, sick visit she is not feeling well HPI Details LAST VISIT WITH DR. KRISHNA: (1) Ulcerative colitis: Code(s): K51.90 - Ulcerative colitis, unspecified, without complications Plan: 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 CD remains on differential. In clinical remission. Likely biochem remission too but fecal calpro results pending. Due for post-treatment colo. Will book this today. Plan: -Cont mesalamine 2.4 g p.o. once daily. -Mesalamine suppository prescribed for P RN use for persistent sx despite PO mesalamine. -Colonoscopy to be booked on elective ba sis. Split PEG prep instructions reviewed. -Pt advised to call office for any persi stent sx >1w despite PO and OH therapy. TODAY'S VISIT Patient is here today for requested visit. Patient saw Dr. Krishna in February. Since then patient had a flareup, unsure if was due to her colitis or what she ate. Patient is taking mesalamine as prescribed. Patient reports that it happened to her when she had her., frequent loose stools causing rectal pain and bleeding. Her symptoms subsided, however she continues to have loose stools postprandially. Patient is not following any particular diet, however she does know that she is unable to eat garlic and other food and spices that causes abdominal bloating and loose stools. Patient states that she takes the omeprazole, however still has postprandial epigastric burning with dyspepsia, without dysphagia or odynophagia. Patient denies any nausea or vomiting. Patient is scheduled to go for repeat colonoscopy in June and has appointment with Dr. Fernando escoto. Patient had normal stool calprotectin. [facility] Medical History (Updated 04/29/23 @ 10:58 by Maria Luisa Hull, [facility]) Physical exam RSV (acute bronchiolitis due to respiratory syncytial virus) Viral syndrome Memory loss Central abdominal pain Upper respiratory tract infection Encounter for management and injection of depo-Provera Sterilization Family planning Pre-op evaluation Vaginal discharge Well woman exam with routine gynecological exam Preop cardiovascular exam Fungal dermatitis Pre-op evaluation Depot contraception Depo-Provera contraceptive status Ulcerative colitis Migraine Asthma Anxiety Surgical History H/O tubal ligation H/O colonoscopy Hx of abdominal surgery History of loop electrical excision procedure (LEEP) Family History Mother History of hypertension Hx of diabetes mellitus History of high cholesterol Father Murder Daughter In good health Daughter In good health Sister No problems noted. Brother No problems noted. Sister No problems noted. Sister No problems noted. Social History Housing: House Alcohol intake: current Alcohol intake frequency: a few times a month Alcohol type: wine Patient Tobacco Use Status: Former Tobacco user Quit Date: 2021 Tobacco use type: Cigarette Cigarettes Per Day: 2 Years Smoked: 10 e-Cigarette/Vaping Use: Never Used Second Hand Smoke Exposure: No service: No Current occupational status: unemployed Gender identity: Female Cognitive needs: No Hearing needs: No Vision needs: Yes Female Reproductive History Menstrual Age of Menarche: 15 Review of Systems Const Denies weight gain and Denies weight loss ENT Reports no additional complaints, Denies dysphagia and Denies odynophagia Card Reports no additional complaints Resp Reports no additional complaints GI Denies abdominal pain, Denies belching, Denies melena, Reports bloating, Denies change in bowel habits, Denies dysphagia, Denies excessive flatus, Reports dyspe psia, Reports heartburn, Denies diarrhea, Reports loose stools, Denies nausea, Denies odynophagia, Denies vomiting and Reports other (rectal pain) Reports no additional complaints Musc Reports no additional complaints Neuro Reports no additional complaints Psych Reports no additional complaints Endo Reports no additional complaints Physical Exam Vital Signs: Last Vital Signs Pulse 70 04/29/23 10:54 BP 112/77 04/29/23 10:54 BMI result Body Mass Index 28.1 Const General: healthy appearing, no acute distress and well developed Nutritional Appearance: well nourished Orientation/consciousness: patient oriented x3 HEENT Head: Yes normal to inspection, Yes normocephalic and Yes atraumatic Face and sinus: Yes normal facial exam Mouth: Normal oral and palatal mucosa present Throat: Yes posterior oropharynx normal, Yes tonsils normal and Yes uvula midline Eyes General: appearance normal, both eyes and all related structures Neck Neck: Yes normal visual inspection, Yes full ROM and Yes trachea midline Thyroid: Thyroid normal Resp Effort & Inspection: normal respiratory effort, able to speak in complete sentences, no tracheal deviation and symmetric chest movement Auscultation: clear to auscultation bilaterally Cardio Rate: regular rate GI Inspection: Yes normal to inspection and No distended Palpation (GI): Soft to palpation, not firm, nontender and No hepatosplenomegaly present Auscultation: normal bowel sounds General: Yes no CVA tenderness Back/Spine/Pelvis Back: no CVA tenderness Skin General skin exam: elasticity normal, turgor normal and dry skin Neuro General: patient oriented x3 Psych Appearance: grossly normal Mental Status: mental status grossly normal Affect: normal affect Assessment & Plan Assessment & Plan (1) Ulcerative colitis: Code(s): K51.90 - Ulcerative colitis, unspecified, without complications Qualifiers: Digestive disease complication type: without complication Ulcerative colitis location: other ulcerative colitis Qualified Code(s): K51.80 - Other ulcerative colitis without complications (2) GERD (gastroesophageal reflux disease): Code(s): K21.9 - Gastro-esophageal reflux disease without esophagitis Qualifiers: Esophagitis presence: esophagitis presence not specified Qualified Code(s): K21.9 - Gastro-esophageal reflux disease without esophagitis Plan Continue mesalamine. Low FODMAP diet discussed with patient. List of food recommended as well as list of food to avoid given to patient. Stool calprotectin negative, currently patient is in remission. Discussed with gabi bailey avoiding dietary triggers. Patient will also try to take fiber supplement to help her bulk her stools better. Will change her PPI to pantoprazole, patient will take famotidine at bedtime on as needed basis. Will try hydrocortisone to help her with discomfort from her hemorrhoids. Patient was also encouraged to do Sitz baths or use witch Leanne to provide comfort. Patient will call our office if needed. Follow-up with Dr. Krishna after her colonoscopy. Patient is agreeable to this plan and verbalizes understanding of instructions. She was given the opportunity to ask questions and all questions answered. Thank you for allowing me to participate in her care Medications: New pantoprazole 20 mg PO DAILY 30 tabs 1RF methylcellulose (laxative) (Citrucel) take it with full glass of water 500 mg PO DAILY 90 tabs 2RF K59.00 - Constipation, unspecified famotidine (Pepcid) 20 mg PO BEDTIME 30 tabs 3RF K21.9 - Gastro-esophageal reflux disease without esophagitis hydrocortisone 2.5% (Proctosol HC) 1 appl OH BID-QID PRN 30 grams 2RF hemorrhoids K64.9 - Unspecified hemorrhoids Discontinued doxycycline hyclate Discontinued Reason: Patient no longer taking 100 mg PO BID 7 days 14 tabs 0RF omeprazole Discontinued Reason: Doctor's Order 20 mg PO DAILY 90 caps 0RF Coding Level of Care Code Est Pt Level 4 (79551) Diagnoses Other ulcerative colitis without complication K51.80 Digestive disease complication type: without complication Ulcerative colitis location: other ulcerative colitis Gastroesophageal reflux disease, unspecified whether esophagitis present K21.9 Esophagitis presence: esophagitis presence not specified Time Spent (min) 40 Comment 25 minutes spent with patient and additional 15 minutes spent reviewing her records
[2023-04-29 10:54] VITALS: BP 112/77; PULSE 70; BMI 28.1
== END 2023-04-29 11:38 | disposition home or self-care (01) ==
PROVIDERS: PCP Internal Medicine; Visit Provider Nurse Practitioner Family
DX: K51.80 Other ulcerative colitis without complications (principal); K21.9 Gastro-esophageal reflux disease without esophagitis
CPT/HCPCS: 99214

== ENCOUNTER → 2023-04-29 10:49 | Outpatient (BNVA) | payer OTHER, SELFPAY | PROVIDERS: PCP Internal Medicine; Visit Provider Nurse Practitioner Family | DX: K51.80 Other ulcerative colitis without complications (principal); K21.9 Gastro-esophageal reflux disease without esophagitis | CPT/HCPCS: 99212 ==

== ENCOUNTER 2023-06-18 10:53 | Outpatient (REF) | payer OTHER, SELFPAY | END 2023-06-18 10:54 | disposition home or self-care (01) | LOC: HO.LNP 10:53 | PROVIDERS: PCP Internal Medicine; Visit Provider Advanced Practice Midwife | DX: Z20.2 Contact with and (suspected) exposure to infections with a predominantly sexual mode of transmission (principal) | CPT/HCPCS: 99212 ==

== ENCOUNTER 2023-06-18 10:53 | Outpatient (AMB) | payer OTHER, SELFPAY ==
[2023-06-18 10:56] VITALS: BP 116/70; BMI 27.9
--- NOTE | 2023-06-18 10:56 | A.OFFVIS_ITS ---
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 Not using condoms. She denies any pelvic pain or urinary symptoms. She reports her periods are regular and on time. History of tubal ligation. [facility] Medical History (Updated 06/18/23 @ 11:08 by Katrin Dutton CNM) Physical exam RSV (acute bronchiolitis due to respiratory syncytial virus) Viral syndrome Memory loss Central abdominal pain Upper respiratory tract infection Sterilization Pre-op evaluation Vaginal discharge Well woman exam with routine gynecological exam Preop cardiovascular exam Fungal dermatitis Pre-op evaluation Depot contraception Ulcerative colitis Migraine Asthma Anxiety Surgical History H/O tubal ligation H/O colonoscopy Hx of abdominal surgery History of loop electrical excision procedure (LEEP) Family History Mother History of hypertension Hx of diabetes mellitus History of high cholesterol Father Murder Daughter In good health Daughter In good health Sister No problems noted. Brother No problems noted. Sister No problems noted. Sister No problems noted. Social History Housing: House Alcohol intake: current Alcohol intake frequency: a few times a month Alcohol type: wine Patient Tobacco Use Status: Former Tobacco user Quit Date: 2021 Tobacco use type: Cigarette Cigarettes Per Day: 2 Years Smoked: 10 e-Cigarette/Vaping Use: Never Used Second Hand Smoke Exposure: No service: No Current occupational status: unemployed Gender identity: Female Cognitive needs: No Hearing needs: No Vision needs: Yes Female Reproductive History Menstrual Age of Menarche: 15 Date of last menstrual period: 05/21/23 Review of Systems Const All systems reviewed & are unremarkable except as noted in HPI and below Physical Exam Vital Signs: Last Vital Signs BP 116/70 06/18/23 10:56 BMI result Body Mass Index 27.9 Const General: cooperative, healthy appearing and no acute distress Orientation/consciousness: patient oriented x3 GI Inspection: Yes normal to inspection Palpation (GI): Soft to palpation and Other GI palpation findings present (Nontender) Rectal Exam - Female: visual inspection normal General: Yes bladder normal to palpation External Female Exam: normal appearance of the urethra Speculum Exam - Vagina: normal appearance of the vagina, normal palpation and normal vaginal discharge Speculum Exam - Cervix: normal appearance of the cervix, normal palpation and Other cervical findings present (Post LEEP appearance) Bimanual exam- vagina & uterus: normal bimanual exam, normal palpation, uterine size normal, bladder normal to palpation, normal palpation, uterine shape normal and non-tender Bimanual Exam- Adnexa, other: normal adnexae Neuro General: patient oriented x3 Assessment & Plan Assessment & Plan (1) Possible exposure to STD: Code(s): Z20.2 - Contact with and (suspected) exposure to infections with a predominantly sexual mode of transmission Plan GC chlamydia and BV panel obtained. Offered STD blood work patient declined. Encouraged to sign up for the patient portal today. She has a annual exam booked 08/26/2023. All of her questions and concerns were addressed to the best of my ability. A wait cultures results plan of care. Coding Level of Care Code Est Pt Level 3 (05680) Diagnoses Possible exposure to STD Z20.2
== END 2023-06-18 11:19 | disposition home or self-care (01) ==
LOC: HO.HWS 10:53
PROVIDERS: PCP Internal Medicine; Visit Provider Advanced Practice Midwife
DX: Z20.2 Contact with and (suspected) exposure to infections with a predominantly sexual mode of transmission (principal)
CPT/HCPCS: 99213

== ENCOUNTER 2023-06-18 11:19 | Outpatient (REF) | payer OTHER, SELFPAY ==
[2023-06-18 14:05] LABS: CT PCR NOT DETECTED (Not Detect.); NG PCR NOT DETECTED (Not Detect.)
[2023-06-19 13:43] LABS: BV Int Neg Control Negative (Negative); BV Int Pos Control Positive (Positive)
== END 2023-06-18 11:20 | disposition home or self-care (01) ==
LOC: HO.LAB 11:19
PROVIDERS: Visit Provider Advanced Practice Midwife
DX: Z20.2 Contact with and (suspected) exposure to infections with a predominantly sexual mode of transmission (principal)
CPT/HCPCS: 0353U; 87480; 87510; 87660

== ENCOUNTER 2023-07-03 08:53 | Outpatient (AMB) | payer OTHER, SELFPAY ==
--- NOTE | 2023-07-03 09:04 | AM.OFFWIN_ITS ---
Intake Vital Signs 3 07/03/23 09:08 Height 5 ft 6.5 in Weight 172 lb BMI 27.3 BP 104/68 Blood Pressure Location Rt brachial Position Sitting Pulse 82 Pulse Source Pulse Oximeter Pulse Oximetry (%) 97 Oxygen Delivery Method Room Air Intake Visit Reasons: EP cyst lower rt buttocks Intake Note: Pt is here c/o cyst on her lower right buttocks. Pt states it is painful and swollen. Pt also states she has had it for two weeks. Patient Tobacco Use Status: Former Tobacco user Quit Date: 2021 Allergies No Known Allergies [No Known Allergies*] Allergy (Verified 07/03/23 09:09) Do you need a note to return to daycare/school/sports/work: Yes HPI HPI Comments 2 History of Present Illness0 Details 37 y/o female presents to walk in clinic with c/o right buttock cyst x 2 weeks. Pt usually wax her private parts and perineum. [facility] Medical History (Updated 06/18/23 @ 11:08 by Katrin Dutton CNM) Physical exam RSV (acute bronchiolitis due to respiratory syncytial virus) Viral syndrome Memory loss Central abdominal pain Upper respiratory tract infection Sterilization Pre-op evaluation Vaginal discharge Well woman exam with routine gynecological exam Preop cardiovascular exam Fungal dermatitis Pre-op evaluation Depot contraception Ulcerative colitis Migraine Asthma Anxiety Surgical History H/O tubal ligation H/O colonoscopy Hx of abdominal surgery History of loop electrical excision procedure (LEEP) Family History Mother History of hypertension Hx of diabetes mellitus History of high cholesterol Father Murder Daughter In good health Daughter In good health Sister No problems noted. Brother No problems noted. Sister No problems noted. Sister No problems noted. Social History Housing: House Alcohol intake: current Alcohol intake frequency: a few times a month Alcohol type: wine Patient Tobacco Use Status: Former Tobacco user Quit Date: 2021 Tobacco use type: Cigarette Cigarettes Per Day: 2 Years Smoked: 10 e-Cigarette/Vaping Use: Never Used Second Hand Smoke Exposure: No service: No Current occupational status: unemployed Gender identity: Female Cognitive needs: No Hearing needs: No Vision needs: Yes Female Reproductive History Menstrual Age of Menarche: 15 Physical Exam Vital Signs: Last Vital Signs Pulse 82 07/03/23 09:08 BP 104/68 07/03/23 09:08 Pulse Ox 97 07/03/23 09:08 Oxygen Delivery Method Room Air 07/03/23 09:08 BMI result Body Mass Index 27.3 Const General: cooperative and comfortable Skin General skin exam: erythema (Small cyst right buttock, perenium. No drainage, tender and solid) Rashes: no rashes Hair: other (No visible hair) Extrem Upper/lower leg/hip images: 2 1. Small cyst, round and firm, tender to touch, mild redness and no drainage Assessment & Plan Assessment & Plan (1) Cyst of buttocks: Code(s): L72.9 - Follicular cyst of the skin and subcutaneous tissue, unspecified Plan: - Topical Abx BID - Warm compress - Keep area clean - No shave or waxing Medications: New 2 mupirocin 2% 1 appl topical BID 15 grams 0RF L72.9 - Follicular cyst of the skin and subcutaneous tissue, unspecified Coding Level of Care Code Est Pt Level 3 (99453) Diagnoses Cyst of buttocks L72.9 Time Spent (min) 15
[2023-07-03 09:08] VITALS: BP 104/68; PULSE 82; O2SAT 97; BMI 27.3
== END 2023-07-03 09:49 | disposition home or self-care (01) ==
PROVIDERS: PCP Internal Medicine; Visit Provider Nurse Practitioner Family
DX: L72.9 Follicular cyst of the skin and subcutaneous tissue, unspecified (principal)
CPT/HCPCS: 99213

== ENCOUNTER 2023-07-07 13:07 | Outpatient (REF) | payer OTHER, SELFPAY ==
[2023-07-08 03:58] LABS: HBS Num1 20.05 mIU/mL (0-7.99); HBc Num1 0.11 S/CO (0.00-0.79); HBsAGNum1 0.34 S/CO (0.00-0.99); Hepatitis B Core Antibody Nonreactive (Nonreactive); Hepatitis B Surface Antigen Negative (Negative); ~Hepatitis B Surface Antibody REACTIVE (Nonreactive)
[2023-07-10 14:03] LABS: TS Negative Control Passed; TS Panel A 0; TS Panel B 0; TS Positive Control Passed; TSpotTB Negative (Negative)
== END 2023-07-07 13:08 | disposition home or self-care (01) ==
LOC: HO.LAB 13:07
PROVIDERS: PCP Internal Medicine; Visit Provider Internal Medicine
DX: Z11.1 Encounter for screening for respiratory tuberculosis (principal); Z23 Encounter for immunization
CPT/HCPCS: 36415; 86481; 86704; 86706; 87340

== ENCOUNTER 2023-08-06 13:29 | Outpatient (REF) | payer OTHER, SELFPAY ==
[2023-08-07 14:04] LABS: BV Int Neg Control Negative (Negative); BV Int Pos Control Positive (Positive)
== END 2023-08-06 13:30 | disposition home or self-care (01) ==
LOC: HO.LAB 13:29
PROVIDERS: PCP Internal Medicine; Visit Provider Advanced Practice Midwife
DX: N89.8 Other specified noninflammatory disorders of vagina (principal)
CPT/HCPCS: 87480; 87510; 87660; 99212

== ENCOUNTER 2023-08-06 13:29 | Outpatient (AMB) | payer OTHER, SELFPAY ==
--- NOTE | 2023-08-06 13:32 | A.OFFVIS_ITS ---
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 She denies any pelvic pain or urinary symptoms. She would recently noted more vaginal changes in infections with her new intimate partner. [facility] Medical History (Updated 07/05/23 @ 13:03 by Stacy Quinones MD) Physical exam RSV (acute bronchiolitis due to respiratory syncytial virus) Viral syndrome Memory loss Central abdominal pain Upper respiratory tract infection Sterilization Pre-op evaluation Vaginal discharge Well woman exam with routine gynecological exam Preop cardiovascular exam Fungal dermatitis Pre-op evaluation Depot contraception Ulcerative colitis Migraine Asthma Anxiety Surgical History H/O tubal ligation H/O colonoscopy Hx of abdominal surgery History of loop electrical excision procedure (LEEP) Family History Mother History of hypertension Hx of diabetes mellitus History of high cholesterol Father Murder Daughter In good health Daughter In good health Sister No problems noted. Brother No problems noted. Sister No problems noted. Sister No problems noted. Social History Housing: House Alcohol intake: current Alcohol intake frequency: a few times a month Alcohol type: wine Patient Tobacco Use Status: Former Tobacco user Quit Date: 2021 Tobacco use type: Cigarette Cigarettes Per Day: 2 Years Smoked: 10 e-Cigarette/Vaping Use: Never Used Second Hand Smoke Exposure: No service: No Current occupational status: unemployed Gender identity: Female Cognitive needs: No Hearing needs: No Vision needs: Yes Female Reproductive History Menstrual Age of Menarche: 15 Date of last menstrual period: 07/16/23 Review of Systems Const All systems reviewed & are unremarkable except as noted in HPI and below Physical Exam Vital Signs: Last Vital Signs BP 102/70 08/06/23 13:35 BMI result Body Mass Index 27.8 Const General: cooperative, healthy appearing and no acute distress Orientation/consciousness: patient oriented x3 GI Inspection: Yes normal to inspection Palpation (GI): Soft to palpation and Other GI palpation findings present (Nontender) Rectal Exam - Female: visual inspection normal General: Yes bladder normal to palpation External Female Exam: normal appearance of the urethra Speculum Exam - Vagina: normal appearance of the vagina, normal palpation and abnormal vaginal discharge (Thick, chunky yellow-green coating throughout the entire vault ) Speculum Exam - Cervix: normal appearance of the cervix and normal palpation Bimanual exam- vagina & uterus: normal bimanual exam, normal palpation, uterine size normal, bladder normal to palpation, normal palpation, uterine shape normal and non-tender Bimanual Exam- Adnexa, other: normal adnexae Neuro General: patient oriented x3 Assessment & Plan Assessment & Plan (1) Vaginal discharge: Code(s): N89.8 - Other specified noninflammatory disorders of vagina Plan Discussed: Treatment for yeast initiated today due to symptoms, prefers oral dosing. Await test results for final plan of care. Advised to use a cool cloth of very irritated and offered a topical external cream, she declined due to the itching is more internal not external. Avoid intimacy until well healed. Use of Diflucan reviewed, she denies any contraindications to use. Boric acid protocol-photocopy obtained on patient's phone. Annual exam booked for 08/26/2023. All of her questions and concerns were addressed to the best of my ability and shared decision making. She is agreeable to the plan of care. This note is constructed using voice recognition software. While every effort has been made to ensure accuracy, harp action assembler errors may have been included. Orders: Orders Bacterial Vaginosis Panel Today N89.8 - Other specified noninflammatory disorders of vagina Medications: New fluconazole 150 mg PO ONCE 1 day 1 tab 1RF personal Coding Level of Care Code Est Pt Level 3 (28225) Diagnoses Vaginal discharge N89.8
[2023-08-06 13:35] VITALS: BP 102/70; BMI 27.8
== END 2023-08-06 14:11 | disposition home or self-care (01) ==
LOC: HO.HWS 13:29
PROVIDERS: PCP Internal Medicine; Visit Provider Advanced Practice Midwife
DX: N89.8 Other specified noninflammatory disorders of vagina (principal)
CPT/HCPCS: 99213

== ENCOUNTER 2023-08-21 14:34 | Outpatient (AMB) | payer OTHER, SELFPAY ==
--- NOTE | 2023-08-21 14:50 | A.OFFVIS_ITS ---
Intake Vital Signs 08/21/23 14:55 Height 5 ft 6 in Weight 171 lb 15.369 oz BMI 27.8 BP 110/76 Intake Visit Reasons: ? 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 Present (Destiny SANTOS) Accompanied by: Self / Same As Patient Allergies No Known Allergies [No Known Allergies*] Allergy (Verified 08/21/23 14:56) Is last menstrual period known: Yes Last menstrual period: 08/06/23 HPI HPI Comments History of Present Illness Details Presenting complaining of vulvovaginal irritation/itching with discharge not associated with foul odor PFSH Medical History Physical exam RSV (acute bronchiolitis due to respiratory syncytial virus) Viral syndrome Memory loss Central abdominal pain Upper respiratory tract infection Sterilization Pre-op evaluation Vaginal discharge Well woman exam with routine gynecological exam Preop cardiovascular exam Fungal dermatitis Pre-op evaluation Depot contraception Ulcerative colitis Migraine Asthma Anxiety Surgical History H/O tubal ligation H/O colonoscopy Hx of abdominal surgery History of loop electrical excision procedure (LEEP) Family History Mother History of hypertension Hx of diabetes mellitus History of high cholesterol Father Murder Daughter In good health Daughter In good health Sister No problems noted. Brother No problems noted. Sister No problems noted. Sister No problems noted. Social History Housing: House Alcohol intake: current Alcohol intake frequency: a few times a month Alcohol type: wine Patient Tobacco Use Status: Former Tobacco user Quit Date: 2021 Tobacco use type: Cigarette Cigarettes Per Day: 2 Years Smoked: 10 e-Cigarette/Vaping Use: Never Used Second Hand Smoke Exposure: No service: No Current occupational status: unemployed Gender identity: Female Cognitive needs: No Hearing needs: No Vision needs: Yes Female Reproductive History Menstrual Age of Menarche: 15 Date of last menstrual period: 08/06/23 Review of Systems Const All systems reviewed & are unremarkable except as noted in HPI and below Physical Exam Vital Signs: Last Vital Signs BP 110/76 08/21/23 14:55 BMI result Body Mass Index 27.8 General: Yes no CVA tenderness External Female Exam: normal external appearance and normal appearance of the urethra Speculum Exam - Vagina: normal appearance of the vagina, normal palpation, no lesions and no masses Speculum Exam - Cervix: normal appearance of the cervix, normal palpation, no lesions, no masses and nontender Bimanual exam- vagina & uterus: normal bimanual exam, normal palpation, uterine size normal, normal palpation, uterine shape normal, No Cervical tenderness present and non-tender Bimanual Exam- Adnexa, other: normal adnexae Back/Spine/Pelvis Back: no CVA tenderness Assessment & Plan Assessment & Plan (1) Vulvovaginitis: Code(s): N76.0 - Acute vaginitis Plan: GC/CT, Bacterial Vaginosis panel taken, Diflucan 150 mg tab once was sent to the patient's pharmacy. The patient was instructed to call if symptoms don't improve in 48 hours. Coding Level of Care Code Est Pt Level 3 (63945) Diagnoses Vulvovaginitis N76.0
[2023-08-21 14:55] VITALS: BP 110/76; BMI 27.8
== END 2023-08-21 15:15 | disposition home or self-care (01) ==
LOC: HO.HWS 14:34
PROVIDERS: PCP Internal Medicine; Visit Provider Obstetrics & Gynecology
DX: N76.0 Acute vaginitis (principal)
CPT/HCPCS: 99213

== ENCOUNTER 2023-08-21 14:34 | Outpatient (REF) | payer OTHER, SELFPAY ==
[2023-08-22 05:25] LABS: CT PCR NOT DETECTED (Not Detect.); NG PCR NOT DETECTED (Not Detect.)
[2023-08-22 08:52] LABS: BV Int Neg Control Negative (Negative); BV Int Pos Control Positive (Positive)
== END 2023-08-21 14:35 | disposition home or self-care (01) ==
LOC: HO.LNP 14:34
PROVIDERS: PCP Internal Medicine; Visit Provider Obstetrics & Gynecology
DX: N76.0 Acute vaginitis (principal)
CPT/HCPCS: 0353U; 87480; 87510; 87660; 99212

== ENCOUNTER 2023-08-26 14:08 | Outpatient (AMB) | payer OTHER, SELFPAY ==
--- NOTE | 2023-08-26 14:13 | A.OFFVIS_ITS ---
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 Doing well with no concerns. Recently seen for vaginitis and was treated for BV. She is concerned that she develops yeast infections from her BV treatment. She does not report a healthy diet admits to being on the go and lacks time to prepare for healthy meals is interested in starting a better regimen of meal planning, an exercise. Regular monthly menses. Currently is not sexually active, recently broke up with partner as she feels he contributed to her frequent vaginitis and had her concerns. Denies family history of breast, ovarian or colon cancer. Last pap smear 2020, negative. [facility] History Physical exam RSV (acute bronchiolitis due to respiratory syncytial virus) Viral syndrome Memory loss Central abdominal pain Upper respiratory tract infection Sterilization Pre-op evaluation Vaginal discharge Well woman exam with routine gynecological exam Preop cardiovascular exam Fungal dermatitis Pre-op evaluation Depot contraception Ulcerative colitis Migraine Asthma Anxiety Surgical History H/O tubal ligation H/O colonoscopy Hx of abdominal surgery History of loop electrical excision procedure (LEEP) Family History Mother History of hypertension Hx of diabetes mellitus History of high cholesterol Father Murder Daughter In good health Daughter In good health Sister No problems noted. Brother No problems noted. Sister No problems noted. Sister No problems noted. 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 Gender identity: Female Cognitive needs: No Hearing needs: No Vision needs: Yes Female Reproductive History Menstrual Age of Menarche: 15 Duration of menses: 3-5 days Date of last menstrual period: 08/09/23 control method: permanent sterilization Permanent Sterilization: BTL Total pregnancies: 3 Full term: 3 Number of Living Children: 3 Date of last pap smear: 10/16/20 (neg pap and hpv) History of abnormal pap smear: Yes (04/28 lgsil 12/29 hgsil 04/30 colpo [place] 2 07/02 leep [place] 2-3) Review of Systems Const All systems reviewed & are unremarkable except as noted in HPI and below Reports as per HPI Eyes Reports no additional complaints ENT Reports no additional complaints Card Reports no additional complaints Resp Reports no additional complaints GI Reports as per HPI and Reports no additional complaints Reports as per HPI Musc Reports no additional complaints Skin/Breast Reports as per HPI Neuro Reports no additional complaints Psych Reports no additional complaints Endo Reports no additional complaints Isidro/Lymph Reports no additional complaints Aller/Immun Reports no additional complaints Physical Exam Vital Signs: Last Vital Signs BP 116/72 08/26/23 14:16 BMI result Body Mass Index 28.4 Const General: cooperative, healthy appearing, no acute distress, well developed and alert Orientation/consciousness: patient oriented x3 HEENT Head: Yes normal to inspection Eyes General: appearance normal, both eyes and all related structures Neck Neck: Yes normal visual inspection Thyroid: Thyroid normal Chest Chest palpation & inspection: normal inspection of the chest and other (no puckering, dimpling, peau de orange, retraction, discharge, masses) Breast/axilla inspection: normal inspection of the breasts Breast/axilla palpation: normal palpation of the breasts Resp Effort & Inspection: normal respiratory effort GI Inspection: Yes normal to inspection Palpation (GI): Soft to palpation Rectal Exam - Female: deferred General: Yes bladder normal to palpation External Female Exam: normal external appearance and normal appearance of the urethra Speculum Exam - Vagina: normal appearance of the vagina, normal palpation and normal vaginal discharge (thick creamy) Speculum Exam - Cervix: normal appearance of the cervix and normal palpation Bimanual exam- vagina & uterus: normal bimanual exam, normal palpation, uterine size normal, bladder normal to palpation, normal palpation and non-tender Bimanual Exam- Adnexa, other: no masses Skin General skin exam: no rashes or lesions noted Rashes: no rashes Neuro General: patient oriented x3 Cognition (Neuro): normal cognition Extrem General: Yes normal to inspection Psych Attitude: cooperative Thought process: Normal thought process present Assessment & Plan Assessment & Plan (1) Encounter for well woman exam with routine gynecological exam: Code(s): Z01.419 - Encounter for gynecological examination (general) (routine) without abnormal findings Plan Discussed: Current recommendations for pap smears per ASCCP guidelines. Breast awareness and periodic breast exams. Maintain a healthy lifestyle including a well balanced diet and routine exercise. Use condoms for STI prevention. Discussed use of probiotics. Patient verbalizes understanding and agrees to the plan of care. She was given opportunity to ask questions and all questions were answered to the best of my ability. RTO in one year for annual ob/gyn examination. This note is constructed using voice recognition software. While every effort has been made to ensure accuracy, slip injector and applicator errors may have been included. Orders: Orders Bacterial Vaginosis Panel Today N89.8 - Other specified noninflammatory disorders of vagina Pap Smear Today Z01.419 - Encounter for gynecological examination (general) (routine) without abnormal findings Coding Level of Care Code Est Pt Prev Care 18-39y(37773) Diagnoses Encounter for well woman exam with routine gynecological exam Z01.419
[2023-08-26 14:16] VITALS: BP 116/72; BMI 28.4
== END 2023-08-26 15:16 | disposition home or self-care (01) ==
PROVIDERS: Visit Provider Advanced Practice Midwife
DX: Z01.419 Encounter for gynecological examination (general) (routine) without abnormal findings (principal)
CPT/HCPCS: 99395

== ENCOUNTER 2023-08-26 14:08 | Outpatient (REF) | payer OTHER, SELFPAY ==
[2023-08-27 13:08] LABS: BV Int Neg Control Negative (Negative); BV Int Pos Control Positive (Positive)
== END 2023-08-26 14:09 | disposition home or self-care (01) ==
LOC: HO.LAB 14:08
PROVIDERS: Visit Provider Advanced Practice Midwife
DX: Z01.419 Encounter for gynecological examination (general) (routine) without abnormal findings (principal); N89.8 Other specified noninflammatory disorders of vagina
CPT/HCPCS: 87480; 87510; 87660; 99395

== ENCOUNTER 2023-08-26 15:00 | Outpatient (REF) | payer OTHER, SELFPAY ==
[2023-09-03 06:28] LABS: HPV 16 RNA NOT DETECTED (NOT DETECTED); HPV mRNA E6/E7 rflx Detected (Not Detected)
== END 2023-08-26 15:01 | disposition home or self-care (01) ==
LOC: HO.LNP 15:00
PROVIDERS: Visit Provider Advanced Practice Midwife
DX: Z01.419 Encounter for gynecological examination (general) (routine) without abnormal findings (principal)
CPT/HCPCS: 87624; 87625; 88142

== ENCOUNTER 2023-09-05 13:37 | Outpatient (AMB) | payer OTHER, SELFPAY ==
--- NOTE | 2023-09-05 13:40 | A.OFFVIS_ITS ---
Intake Vital Signs 09/05/23 13:48 Height 5 ft 6 in Weight 174 lb 2.643 oz BMI 28.1 BP 120/68 Intake Visit Reasons: recurrent yeast infection Steel Finisher Required: No Information Interpreted: non-clinical & clinical Manufacturing Development Engineer: Manufacturing Development Engineer Present (Destiny SANTOS) Accompanied by: Self / Same As Patient Allergies No Known Allergies [No Known Allergies*] Allergy (Verified 09/05/23 13:48) Is last menstrual period known: Yes Last menstrual period: 08/13/23 HPI HPI Comments History of Present Illness Details Patient is here today with concerns for vaginal itching and irritation. She has no odor. History of chronic yeast in bacterial vaginosis. She is recently started to take probiotics. [facility] Medical History Physical exam RSV (acute bronchiolitis due to respiratory syncytial virus) Viral syndrome Memory loss Central abdominal pain Upper respiratory tract infection Sterilization Pre-op evaluation Vaginal discharge Well woman exam with routine gynecological exam Preop cardiovascular exam Fungal dermatitis Pre-op evaluation Depot contraception Ulcerative colitis Migraine Asthma Anxiety Surgical History H/O tubal ligation H/O colonoscopy Hx of abdominal surgery History of loop electrical excision procedure (LEEP) Family History Mother History of hypertension Hx of diabetes mellitus History of high cholesterol Father Murder Daughter In good health Daughter In good health Sister No problems noted. Brother No problems noted. Sister No problems noted. Sister No problems noted. 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 Gender identity: Female Cognitive needs: No Hearing needs: No Vision needs: Yes Female Reproductive History Menstrual Age of Menarche: 15 Date of last menstrual period: 08/13/23 Review of Systems Const All systems reviewed & are unremarkable except as noted in HPI and below Physical Exam Vital Signs: Last Vital Signs BP 120/68 09/05/23 13:48 BMI result Body Mass Index 28.1 Const General: cooperative, healthy appearing and no acute distress Orientation/consciousness: patient oriented x3 GI Inspection: Yes normal to inspection Palpation (GI): Soft to palpation and Other GI palpation findings present (Nontender) Rectal Exam - Female: visual inspection normal Other: External labial erythema, no lesions General: Yes bladder normal to palpation External Female Exam: normal appearance of the urethra Speculum Exam - Vagina: normal appearance of the vagina, normal palpation and normal vaginal discharge Speculum Exam - Cervix: normal appearance of the cervix and normal palpation Bimanual exam- vagina & uterus: normal bimanual exam, normal palpation, uterine size normal, bladder normal to palpation, normal palpation, uterine shape normal and non-tender Bimanual Exam- Adnexa, other: normal adnexae Neuro General: patient oriented x3 Assessment & Plan Assessment & Plan (1) Vaginitis: Code(s): N76.0 - Acute vaginitis Qualifiers: Chronicity: chronic Qualified Code(s): N76.1 - Subacute and chronic vaginitis Plan Instructions: Clean with warm water, no soaps, scented products. Use a cool cloth to the area several times a day if swollen and/or uncomfortable. Wear loose, cotton underclothes, avoid tight outer clothing. Air when possible. No coitus until well healed. Complete all medications as prescribed. Await final pending results for any changes in the plan of care. Call the office if there is no improvement in 24-48hrs., or if worsening symptoms. Continue with the probiotics. Due to the holiday weekend, the office being closed- Rx for oral Diflucan to be sent in, and a topical cream to apply if needed. All of her questions and concerns were addressed to the best of my ability. She is agreeable to the plan of care. Orders: Orders Bacterial Vaginosis Panel Today N76.0 - Acute vaginitis Medications: New clotrimazole-betamethasone 1-0.05 % apply externally a thin coat to the area as directed 1 appl topical BID 45 grams 0RF itching 7 days Coding Level of Care Code Est Pt Level 3 (90917) Diagnoses Chronic vaginitis N76.1 Chronicity: chronic
[2023-09-05 13:48] VITALS: BP 120/68; BMI 28.1
== END 2023-09-05 14:03 | disposition home or self-care (01) ==
LOC: HO.HWS 13:37
PROVIDERS: PCP Internal Medicine; Visit Provider Advanced Practice Midwife
DX: N76.1 Subacute and chronic vaginitis (principal)
CPT/HCPCS: 99213

== ENCOUNTER 2023-09-05 13:37 | Outpatient (REF) | payer OTHER, SELFPAY ==
[2023-09-06 13:20] LABS: BV Int Neg Control Negative (Negative); BV Int Pos Control Positive (Positive)
== END 2023-09-05 13:38 | disposition home or self-care (01) ==
LOC: HO.LNP 13:37
PROVIDERS: PCP Internal Medicine; Visit Provider Advanced Practice Midwife
DX: N76.1 Subacute and chronic vaginitis (principal)
CPT/HCPCS: 87480; 87510; 87660; 99212

== ENCOUNTER 2023-09-17 14:15 | Outpatient (REF) | payer OTHER, SELFPAY ==
[2023-09-19 12:49] LABS: BV Int Neg Control Negative (Negative); BV Int Pos Control Positive (Positive)
== END 2023-09-17 14:16 | disposition home or self-care (01) ==
LOC: HO.LAB 14:15
PROVIDERS: PCP Internal Medicine; Visit Provider Advanced Practice Midwife
DX: L29.2 Pruritus vulvae (principal); N89.8 Other specified noninflammatory disorders of vagina
CPT/HCPCS: 87480; 87510; 87660; 99212

== ENCOUNTER 2023-09-17 14:15 | Outpatient (AMB) | payer OTHER, SELFPAY ==
[2023-09-17 14:48] VITALS: BMI 28.1
--- NOTE | 2023-09-17 14:48 | A.OFFVIS_ITS ---
Vital Signs 09/17/23 14:48 Height 5 ft 6 in Weight 174 lb BMI 28.1 Intake Visit Reasons: ?BV Brick Washer: Brick Washer Present (Dianne) Allergies No Known Allergies [No Known Allergies*] Allergy (Verified 09/17/23 14:48) Is last menstrual period known: Yes Last menstrual period: 09/06/23 HPI Comments Details: Patient is here today with concerns of itching while being treated for BV. Last culture positive for BV results. At the visit she was given a topical cream and reports that it only helps for about 15 minutes. Erroneously the Diflucan dose was not sent in. She has experienced repeated episodes of either yeast or bacteria infections for the last 4 months. HPV and BV correlation H She has currently not sexually active. She has an appointment next month for a colposcopy. [facility] Medical History Physical exam RSV (acute bronchiolitis due to respiratory syncytial virus) Viral syndrome Memory loss Central abdominal pain Upper respiratory tract infection Sterilization Pre-op evaluation Vaginal discharge Well woman exam with routine gynecological exam Preop cardiovascular exam Fungal dermatitis Pre-op evaluation Depot contraception Ulcerative colitis Migraine Asthma Anxiety Surgical History H/O tubal ligation H/O colonoscopy Hx of abdominal surgery History of loop electrical excision procedure (LEEP) Family History Mother History of hypertension Hx of diabetes mellitus History of high cholesterol Father Murder Daughter In good health Daughter In good health Sister No problems noted. Brother No problems noted. Sister No problems noted. Sister No problems noted. 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 Gender identity: Female Cognitive needs: No Hearing needs: No Vision needs: Yes Female Reproductive History Menstrual Age of Menarche: 15 Date of last menstrual period: 09/06/23 Review of Systems Const All systems reviewed & are unremarkable except as noted in HPI and below Physical Exam Vital Signs: BMI result Body Mass Index 28.1 Const General: cooperative, healthy appearing and no acute distress Orientation/consciousness: patient oriented x3 GI Inspection: Yes normal to inspection Palpation (GI): Soft to palpation and Other GI palpation findings present (Nontender) Rectal Exam - Female: visual inspection normal Other: External erythema General: Yes bladder normal to palpation External Female Exam: normal appearance of the urethra Speculum Exam - Vagina: normal appearance of the vagina, normal palpation and abnormal vaginal discharge (Yellow copious) Speculum Exam - Cervix: normal appearance of the cervix and normal palpation Bimanual exam- vagina & uterus: normal bimanual exam, normal palpation, uterine size normal, bladder normal to palpation, normal palpation, uterine shape normal and non-tender Bimanual Exam- Adnexa, other: normal adnexae Neuro General: patient oriented x3 Assessment & Plan Assessment & Plan (1) Vulvar itching: Code(s): L29.2 - Pruritus vulvae Plan Discussed: Vaginal health changes, with pH and pj. Encouraged to continue probiotics, healthy diet, adequate fluids and rest. HPV and relationship to other chronic vaginitis such as BV. Different ways to treat for chronic infections are commonly offered and may need revision from time to time. Diflucan sent in with 1 refill. Continue and complete treatment for the bacterial vaginosis. Keep follow up with Dr. Childers as scheduled. All of her questions and concerns were addressed to the best of my ability. She is agreeable to the plan of care. This note is constructed using voice recognition software. While every effort has been made to ensure accuracy, technician submarine cable equipment errors may have been included. Orders: Orders Bacterial Vaginosis Panel Today N89.8 - Other specified noninflammatory disorders of vagina Medications: New fluconazole 150 mg PO ONCE 1 tab 1RF personal 1 day Coding Level of Care Code Est Pt Level 3 (53480) Diagnoses Vulvar itching L29.2
== END 2023-09-17 15:25 | disposition home or self-care (01) ==
LOC: HO.HWS 14:15
PROVIDERS: PCP Internal Medicine; Visit Provider Advanced Practice Midwife
DX: L29.2 Pruritus vulvae (principal)
CPT/HCPCS: 99213

== ENCOUNTER 2023-10-13 14:43 | Outpatient (AMB) | payer OTHER, SELFPAY ==
[2023-10-13 14:52] VITALS: BP 118/74; BMI 27.8
--- NOTE | 2023-10-13 14:52 | MHC.OFFVIS ---
Vital Signs 10/13/23 14:52 Height 5 ft 6 in Weight 171 lb 15.369 oz BMI 27.8 BP 118/74 Intake Visit Reasons: Colposcopy Property Staff Accountant Required: No Information Interpreted: non-clinical & clinical Vineyard Worker: Vineyard Worker Present (Destiny SANTOS) Accompanied by: Self / Same As Patient Allergies No Known Allergies [No Known Allergies*] Allergy (Verified 10/13/23 15:06) HPI Comments Details: Presenting for colposcopy. Pap smear showed low-grade JOSEPHINE HPV E6/E7 positive, HPV 16/18/45 negative. The patient is complaining of vulvovaginal discharge was treated with Diflucan week ago her symptoms not improve. The patient had history of recurrent BV PFSH Medical History Physical exam RSV (acute bronchiolitis due to respiratory syncytial virus) Viral syndrome Memory loss Central abdominal pain Upper respiratory tract infection Sterilization Pre-op evaluation Vaginal discharge Well woman exam with routine gynecological exam Preop cardiovascular exam Fungal dermatitis Pre-op evaluation Depot contraception Ulcerative colitis Migraine Asthma Anxiety Surgical History H/O tubal ligation H/O colonoscopy Hx of abdominal surgery History of loop electrical excision procedure (LEEP) Family History Mother History of hypertension Hx of diabetes mellitus History of high cholesterol Father Murder Daughter In good health Daughter In good health Sister No problems noted. Brother No problems noted. Sister No problems noted. Sister No problems noted. 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 Gender identity: Female Cognitive needs: No Hearing needs: No Vision needs: Yes Female Reproductive History Menstrual Age of Menarche: 15 Physical Exam Vital Signs: BMI result Body Mass Index 27.8 Results AMB Test Urine AMB Test Urine Negative Last Edit by Destiny Crabtree CMA on 10/13/23 15:10 Assessment & Plan Assessment & Plan (1) LGSIL on Pap smear of cervix: Code(s): R87.612 - Low grade squamous intraepithelial lesion on cytologic smear of cervix (LGSIL) Category: Medical Plan: Discussed with the patient the result of her abnormal pap, its significance, risk of progression, persistence, and regression. the false positive/negative rate of a Pap smear as a screening test in detecting cervical cancer and the indication for a diagnostic test -colposcopy, biopsy, endocervical curettage. Instructions given the patient to schedule colposcopy within 2 weeks The patient verbalized understanding and agreed with the plan, all questions answered. (2) Vaginitis: Comment: History of recurrent BV Code(s): N76.0 - Acute vaginitis Category: Medical Plan: GC/CT, Bacterial Vaginosis panel taken, Terazol 0.8% q.h.s. for 3 days was sent to the patient's pharmacy. The patient was instructed to call if symptoms don't improve in 48 hours. If BV panel comes back positive for Gardnerella will treat with the [facility] regimen for recurrent BV Orders: Orders AMB HCG Urine Test Today Z32.02 - Encounter for test, result negative Medications: New terconazole 0.8% 1 appful vaginal BEDTIME 3 days 20 grams 0RF Coding Level of Care Code Est Pt Level 3 (68264) Diagnoses LGSIL on Pap smear of cervix R87.612 Vaginitis N76.0
== END 2023-10-14 08:04 | disposition home or self-care (01) ==
LOC: HO.HWS 14:43
PROVIDERS: PCP Internal Medicine; Visit Provider Obstetrics & Gynecology
DX: R87.612 Low grade squamous intraepithelial lesion on cytologic smear of cervix (LGSIL) (principal); N76.0 Acute vaginitis; Z32.02 Encounter for pregnancy test, result negative
CPT/HCPCS: 99213

== ENCOUNTER 2023-10-13 14:43 | Outpatient (REF) | payer OTHER, SELFPAY ==
[2023-10-14 10:05] LABS: Bacterial Vaginosis PCR NEGATIVE (Negative); Candida Group PCR DETECTED (Not Detect); Candida glab krusei PCR NOT DETECTED (Not Detect); Trichomonas vaginalis PCR NOT DETECTED (Not Detect)
[2023-10-14 10:42] LABS: CT PCR NOT DETECTED (Not Detect.); NG PCR NOT DETECTED (Not Detect.)
== END 2023-10-13 14:44 | disposition home or self-care (01) ==
LOC: HO.LNP 14:43
PROVIDERS: PCP Internal Medicine; Visit Provider Obstetrics & Gynecology
DX: N76.0 Acute vaginitis (principal); R87.612 Low grade squamous intraepithelial lesion on cytologic smear of cervix (LGSIL)
CPT/HCPCS: 0352U; 0353U; 81025; 99212

== ENCOUNTER 2023-10-16 07:16 | Day surgery (SDC) | payer OTHER, SELFPAY ==
[2023-10-14 15:21] VITALS: BMI 28.1
[2023-10-16 07:56] VITALS: BMI 28.2
[2023-10-16] MEDS: Sodium Phosphate,Mono-Dibasic 133 ML ENEMA PR (08:12)
[2023-10-16 08:19] VITALS: BP 107/78; PULSE 86; RESP 15; TEMP 36.6; O2SAT 96
[2023-10-16] MEDS: Lactated Ringers 1,000 ML 50 ML IVCONT (09:02)
--- NOTE | 2023-10-16 09:12 | P.CONAN_ITS ---
HPI - Anesthesia Eval Consult details Narrative: for colonoscopy [facility] Active Problems Active Problems: All Active Problems Vaginitis (Acute) LGSIL on Pap smear of cervix (Acute) Vulvovaginitis (Acute) Immunization due (Acute) Moderate asthma (Acute) Asthma exacerbation (Acute) Ulcerative colitis (Acute) Anxiety (Acute) Migraines (Acute) BPPV (benign paroxysmal positional vertigo) (Acute) Chronic diarrhea (Acute) Hx of abnormal cervical Pap smear (Acute) Physical exam (Acute) Past Medical History Medical History Physical exam RSV (acute bronchiolitis due to respiratory syncytial virus) Viral syndrome Memory loss Central abdominal pain Upper respiratory tract infection Sterilization Pre-op evaluation Vaginal discharge Well woman exam with routine gynecological exam Preop cardiovascular exam Fungal dermatitis Pre-op evaluation Depot contraception Ulcerative colitis Migraine Asthma Anxiety Patient : No Family History Family History Mother History of hypertension Hx of diabetes mellitus History of high cholesterol Father Murder Daughter In good health Daughter In good health Sister No problems noted. Brother No problems noted. Sister No problems noted. Sister No problems noted. Family history of problems with anesthesia: No Surgical History Surgical History H/O tubal ligation H/O colonoscopy Hx of abdominal surgery History of loop electrical excision procedure (LEEP) History of Problems with Anesthesia: No Social History Social History Housing: House Alcohol intake: current Alcohol intake frequency: a few times a month Alcohol type: wine Patient Tobacco Use Status: Former Tobacco user Quit Date: 2021 Tobacco use type: Cigarette Cigarettes Per Day: 2 Years Smoked: 10 e-Cigarette/Vaping Use: Never Used Second Hand Smoke Exposure: No service: No Current occupational status: employed and unemployed 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[employer], 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 Gender identity: Female Cognitive needs: No Hearing needs: No Vision needs: Yes Meds Allergies Allergy/AdvReac Type Severity Reaction Status Date / Time No Known Allergies Allergy Verified 10/16/23 07:56 [No Known Allergies*] Active Medications: Current Medications Lactated Ringer's (Lr) 1,000 mls @ 50 mls/hr IVCONT .Q20H ROSALIA Last Admin: 10/16/23 09:02 Dose: 50 mls/hr Sodium Biphosphate/Sodium Phosphate (Sodium Phosphate,Coosa-Dibasic 133 Ml Enema) 133 ml DE ONCE PRN PRN Reason: Poor Colonoscopy Prep Results Last Admin: 10/16/23 08:12 Dose: 133 ml Exam Height,Weight and Vital Signs: Height 5 ft 6 in Weight 79.379 kg Last Vital Signs Temp 97.9 F 10/16/23 08:19 Pulse 86 10/16/23 08:19 Resp 15 10/16/23 08:19 BP 107/78 10/16/23 08:19 Pulse Ox 96 10/16/23 08:19 O2 Del Method Room Air 10/16/23 08:19 Airway Mallampati Class: I TM Dist: >3cm Neck ROM: Full Loose/Missing/Broken Teeth: No Heart: ok Lungs: ok Assessment and Plan Assessment Anesthesia Assessment: Anesthesia Plan Discussed and Chart Reviewed Final Anesthetic Review Family History of Problems with Anesthesia: No History of Problems with Anesthesia: No NPO: Yes ASA Class: II Final Preanesthetic Review: No Changes in Pt Med Stat, Meds/Allgs Chart Reviewed, Consent Obtained/Reviewed and Anes Risks/Benef Reviewed Patient Risk: Low Procedure Risk: Low Anesthetic Plan Anesthetic Plan: MAC: and Agree w/ Assess. and Plan Disposition: Standard PACU
--- NOTE | 2023-10-16 09:14 | MHC.SHP ---
Pre-Procedural Eval Section A - 24 Hr Update-Section A only Date of Service: 10/16/23 Section B - Complete if H&P > 30 days Chief Complaint: Diarrhea, unspecified Details of Present Illness: Physical exam RSV (acute bronchiolitis due to respiratory syncytial virus) Viral syndrome Memory loss Central abdominal pain Upper respiratory tract infection Encounter for management and injection of depo-Provera Sterilization Family planning Pre-op evaluation Vaginal discharge Well woman exam with routine gynecological exam Preop cardiovascular exam Fungal dermatitis Pre-op evaluation Depot contraception Depo-Provera contraceptive status Ulcerative colitis Migraine Asthma Anxiety Surgical History H/O tubal ligation H/O colonoscopy Hx of abdominal surgery History of loop electrical excision procedure (LEEP) Allergies: Allergies Allergy/AdvReac Type Severity Reaction Status Date / Time No Known Allergies Allergy Verified 10/16/23 07:56 [No Known Allergies*] Review of Systems Review of Systems Comment: Ten point ROS negative Exam Exam Comment: Gen appear: No acute distress HEENT: no icterus Chest: No overt resp distress Abd: soft, nontender, nondistended Psych: Stable affect, answering questions appropriately Neuro: A/Ox3 noted to move all extremities spontaneously Ext: no peripheral edema Plan Diagnosis/Plan: Unchanged I have reviewed the history and physical and performed a pertinent physical examination on my patient. No changes have occurred unless specified. Time Spent With Patient Time: Total time managing care of this patient today ____ minutes.
--- NOTE | 2023-10-16 09:47 | P.OPN-COLO_ITS ---
Colonoscopy Operative Note Operative Note Date of Service: 10/16/23 Narrative: Procedure: Colonoscopy Indication: Chronic Diarrhea Endoscopist: Tamiko King MD Anesthesia Provider: Lupillo Carr MD Anesthesia type: MAC Instrument: Olympus [id number]-[id number] Consent: Indication, risks vs benefits, and alternatives were discussed with the patient who gave written informed consent to proceed. EKG, pulse, pulse oximetry and blood pressure were monitored throughout the procedure. Please see anesthesia flowsheet. Procedure: The patient was brought to the procedure room and placed in the left lateral decubitus position. IV medications were administered by the anesthesia provider in attendance. A digital rectal exam was performed which was normal. The colonoscope was then inserted through the anus and advanced through the colon to the cecum at 75 cm,and terminal ileum. Appendiceal orifice and IC valve were identified. Mucosa was carefully examined under high definition white light as the instrument was slowly withdrawn in a retrograde panoramic fashion. Retroflexion was performed in rectum. The procedure was not difficult. There were no immediate obvious complications. The quality of the prep was BBPS: 2+2+2 = adequate Withdrawal time 17 minutes. Limitations: No limitations. Findings: Mucosa: Normal rectal mucosa was noted on exam today. Erythema, edema and whitish exudates were noted in the proximal sigmoid and distal descending colon. Transverse and ascending colon appeared endoscopically normal. Erythema, and exudates were again noted in the cecum. Terminal ileum was intubated up to 40 cm. One erosion was noted at 5 cm, but the remaining transverse ileum mucosa wa s normal. Cold forceps biopsies were obtained from terminal ileum, cecum, ascending, transverse, descending and sigmoid colon; and rectum. Protruding lesions: * Small internal hemorrhoids without stigmata of recent bleeding. Impression: 1. Patchy colitis and ? ileitis. No rectal involvement noted today. 2. Internal hemorrhoids Recommendations: - Likely Crohn's disease - Await path results. - Start Prednisone 40mg PO once daily x 14 days followed by a taper. - Will discuss switch in therapy - likely anti-TNF vs entyvio.
[2023-10-16 09:51] VITALS: BP 96/61; PULSE 80; RESP 16; TEMP 36.4; O2SAT 100
[2023-10-16 10:06] VITALS: BP 102/62; PULSE 79; RESP 16; O2SAT 99
[2023-10-16 10:20] VITALS: BP 129/85; PULSE 74; RESP 16; O2SAT 99
[2023-10-16 10:35] VITALS: BP 137/85; PULSE 78; RESP 16; TEMP 36.2; O2SAT 99
== END 2023-10-16 11:25 | disposition home or self-care (01) ==
PROVIDERS: PCP Internal Medicine; Visit Provider Internal Medicine
PROC: 0DJD8ZZ Inspection of Lower Intestinal Tract, Via Natural or Artificial Opening Endoscopic (ICD-10-PCS; CPT 45378; principal; 2023-10-16 08:00)
DX: K51.80 Other ulcerative colitis without complications (principal); K51.20 Ulcerative (chronic) proctitis without complications; K63.89 Other specified diseases of intestine; K64.8 Other hemorrhoids; K21.9 Gastro-esophageal reflux disease without esophagitis; J45.909 Unspecified asthma, uncomplicated; Z98.51 Tubal ligation status; Z87.891 Personal history of nicotine dependence; Z79.899 Other long term (current) drug therapy
CPT/HCPCS: 45380; 88305; J2704

== ENCOUNTER → 2023-10-16 07:16 | Outpatient (BNV) | payer OTHER, SELFPAY | PROVIDERS: PCP Internal Medicine; Visit Provider Internal Medicine | DX: K52.9 Noninfective gastroenteritis and colitis, unspecified (principal); K64.8 Other hemorrhoids | CPT/HCPCS: 45380 ==

== ENCOUNTER 2023-10-24 09:29 | Outpatient (AMB) | payer OTHER, SELFPAY ==
[2023-10-24 09:42] VITALS: BP 120/80; PULSE 79; TEMP 36.3; O2SAT 97; BMI 28.2
--- NOTE | 2023-10-24 09:42 | AM.OFFWIN_ITS ---
Intake Vital Signs 10/24/23 09:42 Height 5 ft 6 in Weight 175 lb BMI 28.2 BP 120/80 Blood Pressure Location Lt brachial Position Sitting Pulse 79 Pulse Source Pulse Oximeter Temp 97.4 F Temp Source Temporal Artery Scan Pulse Oximetry (%) 97 Oxygen Delivery Method Room Air Intake Visit Reasons: EST/sore throat (lobby) Intake Note: pt is here today for sore throat started 3 days ago Patient Tobacco Use Status: Former Tobacco user Quit Date: 2021 Allergies No Known Allergies [No Known Allergies*] Allergy (Verified 10/24/23 09:49) Do you need a note to return to daycare/school/sports/work: No HPI HPI Comments History of Present Illness Details 38 y/o female patient who presents to [facility] with c/o Sore- throat x 3 days. [facility] Medical History Physical exam RSV (acute bronchiolitis due to respiratory syncytial virus) Viral syndrome Memory loss Central abdominal pain Upper respiratory tract infection Sterilization Pre-op evaluation Vaginal discharge Well woman exam with routine gynecological exam Preop cardiovascular exam Fungal dermatitis Pre-op evaluation Depot contraception Ulcerative colitis Migraine Asthma Anxiety Surgical History H/O tubal ligation H/O colonoscopy Hx of abdominal surgery History of loop electrical excision procedure (LEEP) Family History Mother History of hypertension Hx of diabetes mellitus History of high cholesterol Father Murder Daughter In good health Daughter In good health Sister No problems noted. Brother No problems noted. Sister No problems noted. Sister No problems noted. 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 Gender identity: Female Cognitive needs: No Hearing needs: No Vision needs: Yes Female Reproductive History Menstrual Age of Menarche: 15 Review of Systems Const All systems reviewed & are unremarkable except as noted in HPI and below Physical Exam Vital Signs: Last Vital Signs Temp 97.4 F 10/24/23 09:42 Pulse 79 10/24/23 09:42 BP 120/80 10/24/23 09:42 Pulse Ox 97 10/24/23 09:42 Oxygen Delivery Method Room Air 10/24/23 09:42 BMI result Body Mass Index 28.2 Const General: comfortable and no acute distress Orientation/consciousness: patient oriented x3 HEENT Head: Yes normocephalic Mouth: moist mucous membranes Throat: Yes uvula midline and Yes abnormal tonsil (Enlarged tonsils 2+) Neuro General: patient oriented x3, gait normal and moves all extremities Psych Speech and movement: Normal speech and movement present Assessment & Plan Assessment & Plan (1) Sore throat: Code(s): J02.9 - Acute pharyngitis, unspecified Plan: - OTC sore/throat remedies - Warm fluids with honey - Rest Coding Level of Care Code Est Pt Level 3 (75540) Diagnoses Sore throat J02.9 Time Spent (min) 15
== END 2023-10-24 12:43 | disposition home or self-care (01) ==
PROVIDERS: PCP Internal Medicine; Visit Provider Nurse Practitioner Family
DX: J02.9 Acute pharyngitis, unspecified (principal)
CPT/HCPCS: 87880; 99213

== ENCOUNTER 2023-10-27 12:03 | Outpatient (AMB) | payer OTHER, SELFPAY ==
--- NOTE | 2023-10-27 12:14 | A.OFFVIS_ITS ---
Vital Signs 10/27/23 12:19 Height 5 ft 6 in Weight 175 lb 7.807 oz BMI 28.3 BP 118/78 Blood Pressure Location Lt brachial Position Sitting Pulse 58 Pulse Source Pulse Oximeter Pulse Oximetry (%) 96 Oxygen Delivery Method Room Air Intake Visit Reasons: S/P Ellinger; Dr. King Intake Note: Radha presents in office today for post op FUV (post colo) CC; Pt denies any significant sx or concerns at this time. Project Controls Specialist Required: No Allergies No Known Allergies [No Known Allergies*] Allergy (Verified 11/19/23 14:23) HPI Comments Details: This is a 36-year-old female who is presenting for follow up: Initial visit 03/11/22: Patient states that for the past 3 months, she has been experiencing abdominal pain associated with loose watery diarrhea. Describes abdominal pain as sharp shooting present in the middle of her abdomen that gets worse when she has to pass a bowel movement. Her bowel movements are loose and watery at least 2 to 3 times a day. No nighttime symptoms. Has seen occasional blood on wiping. Also endorses some degree of tenesmus. Has experienced at least 2-3 lb weight loss in the last 2 months. She thinks the pain sometimes gets triggered with fatty food, and has been avoiding it for the past 1-2 weeks with some response. Therapy so far includes Bentyl and basement supplement with modest improvement. No new medications in the last 6 months. No recent travel or changes in water supply. No sick contacts. Was seen at [facility] as well as her primary care for the similar complaints. Celiac serology with IgG negative, infectious panel negative. C diff and Giardia not checked. Labs: Fecal calpro 330, CRP 0.03 Colonoscopy 04/11/22: Mucosa: Erythema congestion and erosions were noted in the rectum with sharp demarcation at 20 cm. Patchy erythema and erosions were noted in the cecum. Superficial ulcerations noted in terminal ileum up to 10 cm. Ascending, transverse, descending and sigmoid colon appeared normal on endoscopic exam. Cold forceps biopsies were obtained from terminal ileum, cecum, ascending, transverse, descending and sigmoid colon; and rectum. Path: A.? Terminal ileum, biopsy:? Small intestinal mucosa within normal limits. B.? Ileocecal valve, biopsy:? Ileocolonic mucosa with mild crypt disarray and prominent reactive lymphoid aggregate. C.? Cecum, biopsy:? Chronic, mildly active, colitis. D.? Colon, ascending, biopsy:? Colonic mucosa within normal limits. E.? Colon, transverse, biopsy:? Colonic mucosa within normal limits F. ? Colon, descending, biopsy:? Colonic mucosa within normal limits G.? Colon, sigmoid, biopsy? Colonic mucosa within normal limits: H.? Rectum, biopsy:? Chronic, mildly active, proctitis. 04/22/22: Started prednisone on 04/16. Reports complete resolution of abdominal pain and diarrhea. Now has formed bowel movements every 1-2 days. Has not seen any further blood. Also denies any rashes, joint pains or visual changes. 06/17/22: Accompanied by her daughters. Reports no abdominal symptoms when she takes the medication as prescribed, however more recently, has skipped a few doses here and there, and after skipping 2 days in a row, she notices increased abdominal pain, and either diarrhea or constipation. However, once she resumes oral mesalamine, symptoms go away within 3-4 days. Took rectal supp for a few weeks only and self discontinued. Bowel movements are formed, once every day or every other day, no blood. Patient is also status post bilateral salpingectomy 05/10/22 for permanent control. 09/02/22: Currently no abd complaints. No abd pain, diarrhea, blood in stool. Labs reviewed and fecal calpro is 5 which represents excellent response to mesalamine. She does report missing dose pretty often however, at least 1-2 times/week and remembers when has return of abd cramping and urgency. 03/10/23: Reports no gastrointestinal complaints. Has been very compliant with her meds since last visit. No abd pain, diarrhea, blood in stool or urgency. Has not had to reach for meslamine enemas. Cont on PO mesalamine 2.4g/day. Labs reviewed and CRP remains undetectable. Fecal calpro pending. 10/16/23: Impression: 1. Patchy colitis and ? ileitis. No rectal involvement noted today. 2. Internal hemorrhoids Recommendations: - Likely Crohn's disease - Await path results. - Start Prednisone 40mg PO once daily x 14 days followed by a taper. - Will discuss switch in therapy - likely anti-TNF vs entyvio. Path: Diagnosis A. Terminal ileum, biopsy: Ileal mucosa with focal lamina propria hemorrhage and no specific change; no ileitis, granulomas or dysplasia. B. Colon, cecum, biopsy: Mild active colitis with minimal crypt distortion; no granulomas or dysplasia. C. Colon, ascending, biopsy: Colonic mucosa with lymphoid aggregates otherwise no specific change; no colitis, granulomas or dysplasia. D. Colon, transverse, biopsy: Colonic mucosa with focal mild active colitis and mucosal microgranulomas; negative for dysplasia. E. Colon, descending, biopsy: Chronic colitis with mild to moderate activity, crypt abscesses, and possible mucosal microgranuloma; negative for dysplasia. F. Colon, sigmoid, biopsy: Colonic mucosa with focal moderate active colitis; negative for granulomas and dysplasia. G. Colon, rectum, biopsy: Chronic colitis/proctitis with mild to moderate activity, and mucosal microgranulomas; negative for dysplasia. Comment: Appearances are compatible with chronic inflammatory bowel disease and clinical correlation is necessary 10/27/23: When pt was seen in pre-op did mention chronic diarrhea x 2 weeks ongoing despite taking the mesalamine. Based on endoscopic appearance suspicion was for active crohns and was started on pred course. Reports sx improved with the 40mg dosing - will be due for taper later this week. We had also discussed possibility of starting biologics in the post-op and pt was given hand outs on IFX, vedo and stelara. She is here to review tx options further. TSPOT and HBV neg from 06/2023 labs. PFSH Medical History RSV (acute bronchiolitis due to respiratory syncytial virus) Viral syndrome Ulcerative colitis Migraine Asthma Memory loss Physical exam Central abdominal pain Upper respiratory tract infection Sterilization Vaginal discharge Well woman exam with routine gynecological exam Anxiety Preop cardiovascular exam Fungal dermatitis Pre-op evaluation Depot contraception Surgical History H/O tubal ligation H/O colonoscopy Hx of abdominal surgery History of loop electrical excision procedure (LEEP) Family History Mother History of hypertension Hx of diabetes mellitus History of high cholesterol Father Murder Daughter In good health Daughter In good health Sister No problems noted. Brother No problems noted. Sister No problems noted. Sister No problems noted. 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 Gender identity: Female Cognitive needs: No Hearing needs: No Vision needs: Yes Female Reproductive History Menstrual Age of Menarche: 15 Review of Systems Const All systems reviewed & are unremarkable except as noted in HPI and below Physical Exam Vital Signs: Last Vital Signs Pulse 58 10/27/23 12:19 BP 118/78 10/27/23 12:19 Pulse Ox 96 10/27/23 12:19 Oxygen Delivery Method Room Air 10/27/23 12:19 BMI result Body Mass Index 28.3 No apparent distress Nonicteric Abdomen soft, nondistended Alert and oriented x3, normal gait Assessment & Plan Assessment & Plan (1) Crohn's disease: Code(s): K50.90 - Crohn's disease, unspecified, without complications Category: Medical Plan Discussed with the pt that patchy involvement on colo and microgranulomas on path more consistent with crohns than UC. Will recommend escalating therapy which the pt is agreeable to. Reviewed that based on age of presentation and overall disease activity likely falls in low-risk category but that mesalamine will not suffice for crohns. We reviewed indication, benefits and adverse events for both anti-TNF such as infliximab, adalimumab as well as gut selective Entyvio. Pt was also given hand outs on the same. She is leaning towards entyvio but is undecided today and will call office once she has had some more time to review the options. Pred taper prescribed. Pt reminded to call office within 2-4 weeks so that tx may begin promptly. Follow up in 3 months Medications: New prednisone Start AFTER completing 40mg dosing. Take 3 tabs x 7 days, then 2 tabs x 7 days and then 1 tab x 7 days. 42 tabs 0RF Discontinued prednisone A taper will be prescribed after this Discontinued Reason: Doctor's Order 40 mg (2 x 20 mg) PO DAILY 14 days 28 tabs 0RF Coding Level of Care Code Est Pt Level 4 (23637) Diagnoses Crohn's disease K50.90
[2023-10-27 12:19] VITALS: BP 118/78; PULSE 58; O2SAT 96; BMI 28.3
== END 2023-10-27 12:47 | disposition home or self-care (01) ==
PROVIDERS: PCP Internal Medicine; Visit Provider Internal Medicine
DX: K50.90 Crohn's disease, unspecified, without complications (principal)
CPT/HCPCS: 99214

== ENCOUNTER → 2023-10-27 12:03 | Outpatient (BNVA) | payer OTHER, SELFPAY | PROVIDERS: PCP Internal Medicine; Visit Provider Internal Medicine | DX: K50.90 Crohn's disease, unspecified, without complications (principal) | CPT/HCPCS: 99212 ==

== ENCOUNTER 2023-11-12 14:34 | Outpatient (AMB) | payer OTHER, SELFPAY ==
--- NOTE | 2023-11-12 14:58 | MHC.OFFVIS ---
Vital Signs 11/12/23 15:06 Height 5 ft 6 in Weight 174 lb 2.643 oz BMI 28.1 BP 110/76 Intake Visit Reasons: Colposcopy Forest Fire Prevention Manager Required: No Information Interpreted: non-clinical & clinical Content Producer: Content Producer Present (Destiny SANTOS) Accompanied by: Daughter Allergies No Known Allergies [No Known Allergies*] Allergy (Verified 11/12/23 15:07) Is last menstrual period known: Yes Last menstrual period: 11/02/23 HPI Comments Details: Presenting for abnormal Pap smear showing low-grade JOSEPHINE, HPV E6/E7 positive, HPV 16/18/45 negative PFSH Medical History RSV (acute bronchiolitis due to respiratory syncytial virus) Viral syndrome Ulcerative colitis Migraine Asthma Memory loss Physical exam Central abdominal pain Upper respiratory tract infection Sterilization Vaginal discharge Well woman exam with routine gynecological exam Anxiety Preop cardiovascular exam Fungal dermatitis Pre-op evaluation Depot contraception Surgical History H/O tubal ligation H/O colonoscopy Hx of abdominal surgery History of loop electrical excision procedure (LEEP) Family History Mother History of hypertension Hx of diabetes mellitus History of high cholesterol Father Murder Daughter In good health Daughter In good health Sister No problems noted. Brother No problems noted. Sister No problems noted. Sister No problems noted. 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 Gender identity: Female Cognitive needs: No Hearing needs: No Vision needs: Yes Female Reproductive History Menstrual Age of Menarche: 15 Date of last menstrual period: 11/02/23 Review of Systems Const All systems reviewed & are unremarkable except as noted in HPI and below Reports as per HPI and Reports no additional complaints GI Reports no additional complaints Reports no additional complaints Physical Exam Vital Signs: Last Vital Signs BP 110/76 11/12/23 15:06 BMI result Body Mass Index 28.1 Office Procedures Colposcopy Colposcopy: Pre-Procedure Counseling: Before beginning the procedure, I conducted comprehensive counseling with the patient. We thoroughly discussed the procedure itself, including its details, alternatives, and all associated risks. This included but not limited to the following complications such as bleeding, infection, and injury to the vagina, bladder, and vessels, as well as the potential need for transfusion with all its associated risks. Subsequently, the patient sign the consent. Pap smear result: LSIL/HPV E6/E7 positive. Urine test in office = Negative Procedure: During the procedure, the following steps were performed: A speculum was inserted, and acetic acid was applied. Colposcopy was conducted, allowing visualization of the transformation zone. Acetowhite lesions were identified at the 4+6+9+11+12+1 o'clock position. Cervical biopsies were obtained from the 4+6+9+11 o'clock position, followed by an endocervical curettage (ECC). Vaginoscopy of the upper vagina revealed no evidence of aceto-white lesions. Hemostasis was achieved using Monsel solution, and the patient tolerated the procedure well. Post-Procedure Instructions: The patient was advised to promptly contact the office or the after hours answering service or go to the emergency room if experiencing a temperature exceeding 100.4?F, abdominal pain, nausea/vomiting, or bleeding. Additionally, the patient was instructed to abstain from vaginal intercourse and bathtub use. The patient confirmed understanding of these instructions. Discharge Instructions: The patient was instructed to schedule a follow-up appointment in 2 weeks for further evaluation and management. Please note that this note was generated using a voice recognition program, and errors may have occurred during passenger flagman. [id number] of cervix including upper vagina with biopsy and ECC Procedure code (CPT) selection complete Results AMB Test Urine AMB Test Urine Negative Last Edit by Destiny Crabtree CMA on 11/12/23 15:22 Assessment & Plan Assessment & Plan (1) LGSIL on Pap smear of cervix: Comment: HPV E6/E7 positive, HPV 16/18/45 negative Code(s): R87.612 - Low grade squamous intraepithelial lesion on cytologic smear of cervix (LGSIL) Category: Medical Plan: Discussed with the patient the result of her abnormal pap, its significance, risk of progression, persistence, and regression. the false positive/negative rate of a Pap smear as a screening test in detecting cervical cancer and the indication for a diagnostic test -colposcopy, biopsy, endocervical curettage. The patient verbalized understanding and agreed with the plan, all questions answered. Colposcopy done, see procedure note Orders: Orders AMB Colposcopy Today R87.612 - Low grade squamous intraepithelial lesion on cytologic smear of cervix (LGSIL) Coding Level of Care Code Procedure Only Diagnoses LGSIL on Pap smear of cervix R87.612 CPT Codes Colposcopy - CPT: 42550-Wninjbcss of cervix including upper vagina with biopsy and ECC ([id number])
[2023-11-12 15:06] VITALS: BP 110/76; BMI 28.1
== END 2023-11-12 15:28 | disposition home or self-care (01) ==
LOC: HO.HWS 14:34
PROVIDERS: PCP Internal Medicine; Visit Provider Obstetrics & Gynecology
DX: R87.612 Low grade squamous intraepithelial lesion on cytologic smear of cervix (LGSIL) (principal); Z32.02 Encounter for pregnancy test, result negative
CPT/HCPCS: 57454

== ENCOUNTER 2023-11-12 14:34 | Outpatient (REF) | payer OTHER, SELFPAY | END 2023-11-12 14:35 | disposition home or self-care (01) | LOC: HO.LNP 14:34 | PROVIDERS: PCP Internal Medicine; Visit Provider Obstetrics & Gynecology | DX: R87.612 Low grade squamous intraepithelial lesion on cytologic smear of cervix (LGSIL) (principal) | CPT/HCPCS: 57454; 81025; 88305 ==

== ENCOUNTER 2023-11-19 14:10 | Outpatient (REF) | payer OTHER, SELFPAY ==
[2023-11-19 17:06] LABS: Bacterial Vaginosis PCR NEGATIVE (Negative); Candida Group PCR NOT DETECTED (Not Detect); Candida glab krusei PCR NOT DETECTED (Not Detect); Trichomonas vaginalis PCR NOT DETECTED (Not Detect)
[2023-11-19 17:35] LABS: CT PCR NOT DETECTED (Not Detect.); NG PCR NOT DETECTED (Not Detect.)
== END 2023-11-19 14:11 | disposition home or self-care (01) ==
LOC: HO.LNP 14:10
PROVIDERS: PCP Internal Medicine; Visit Provider Obstetrics & Gynecology
DX: N76.0 Acute vaginitis (principal); N87.0 Mild cervical dysplasia
CPT/HCPCS: 0352U; 87491; 87591; 99212

== ENCOUNTER 2023-11-19 14:10 | Outpatient (AMB) | payer OTHER, SELFPAY ==
--- NOTE | 2023-11-19 14:19 | MHC.OFFVIS ---
Vital Signs 11/19/23 14:23 Height 5 ft 6 in Weight 174 lb 2.643 oz BMI 28.1 Intake Visit Reasons: colpo results/DO NOT RS All Source Collection Manager Required: No Information Interpreted: non-clinical & clinical Sql Programmer: Sql Programmer Present (Destiny SANTOS) Accompanied by: Self / Same As Patient Allergies No Known Allergies [No Known Allergies*] Allergy (Verified 11/19/23 14:23) HPI Comments Details: Presenting post colpo for follow-up. The patient is doing well complaining of whitish/yellowish vaginal discharge with no itching or odor. The pathology showed the following: A. Endocervix, curettage: Scant benign endocervical glandular epithelium and benign endometrium/ lower uterine segment. B. Cervix, 1:00, biopsy: Squamous and endocervical glandular mucosa; negative for dysplasia. C. Cervix, 4:00, biopsy: Low-grade squamous intraepithelial lesion (mild dysplasia, LAZARUS 1); endocervical glandular mucosa present. D. Cervix, 6:00, biopsy: Squamous and endocervical glandular mucosa with reactive changes; negative for dysplasia. E. Cervix, 9:00, biopsy: Squamous and endocervical glandular mucosa; negative for dysplasia. F. Cervix, 11:00, biopsy: Low-grade squamous intraepithelial lesion (mild dysplasia, LAZARUS 1); endocervical glandular mucosa present. G. Cervix, 12:00, biopsy: Endocervical glandular mucosa; negative for dysplasia; no squamous component present PFSH Medical History RSV (acute bronchiolitis due to respiratory syncytial virus) Viral syndrome Ulcerative colitis Migraine Asthma Memory loss Physical exam Central abdominal pain Upper respiratory tract infection Sterilization Vaginal discharge Well woman exam with routine gynecological exam Anxiety Preop cardiovascular exam Fungal dermatitis Pre-op evaluation Depot contraception Surgical History H/O tubal ligation H/O colonoscopy Hx of abdominal surgery History of loop electrical excision procedure (LEEP) Family History Mother History of hypertension Hx of diabetes mellitus History of high cholesterol Father Murder Daughter In good health Daughter In good health Sister No problems noted. Brother No problems noted. Sister No problems noted. Sister No problems noted. 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 Gender identity: Female Cognitive needs: No Hearing needs: No Vision needs: Yes Female Reproductive History Menstrual Age of Menarche: 15 Review of Systems Const All systems reviewed & are unremarkable except as noted in HPI and below Reports as per HPI and Reports no additional complaints GI Reports no additional complaints Reports no additional complaints Physical Exam General: Yes no CVA tenderness External Female Exam: normal external appearance and normal appearance of the urethra Speculum Exam - Vagina: normal appearance of the vagina, normal palpation, no lesions, no masses and other (White vaginal discharge) Speculum Exam - Cervix: normal appearance of the cervix, normal palpation, no lesions, no masses, nontender and Other cervical findings present (Site of cervical biopsies within normal) Bimanual exam- vagina & uterus: normal bimanual exam, normal palpation, uterine size normal, normal palpation, uterine shape normal, No Cervical tenderness present and non-tender Bimanual Exam- Adnexa, other: normal adnexae Back/Spine/Pelvis Back: no CVA tenderness Assessment & Plan Assessment & Plan (1) Dysplasia of cervix, low grade (LAZARUS 1): Code(s): N87.0 - Mild cervical dysplasia Category: Medical Plan: Discussed with the patient the pathology results of the colposcopy biopsies & endocervical curettage ( mild dysplasia-LAZARUS 1). Discussed with the patient the sensitivity specificity, positive and negative predictive value in detecting cervical cancer in addition discussed the regression, persistence and progression rates. Recommended co-testing in 12 months, if cytology and or HPV are abnormal will proceed was colposcopy biopsy and endocervical curettage. Instructions given to the patient to schedule a co test appointment in 1 year. All questions answered the patient verbalized understanding. (2) Vulvovaginitis: Comment: History of to BV episodes since 09/16 Code(s): N76.0 - Acute vaginitis Category: Medical Plan: Will check the results treat accordingly Coding Level of Care Code Est Pt Level 3 (95073) Diagnoses Dysplasia of cervix, low grade (LAZARUS 1) N87.0 Vulvovaginitis N76.0
[2023-11-19 14:23] VITALS: BMI 28.1
== END 2023-11-19 14:34 | disposition home or self-care (01) ==
LOC: HO.HWS 14:10
PROVIDERS: PCP Internal Medicine; Visit Provider Obstetrics & Gynecology
DX: N87.0 Mild cervical dysplasia (principal); N76.0 Acute vaginitis
CPT/HCPCS: 99213

== ENCOUNTER 2024-01-12 10:36 | Outpatient (AMB) | payer OTHER, SELFPAY ==
--- NOTE | 2024-01-12 10:41 | A.OFFVIS_ITS ---
Vital Signs 01/12/24 10:48 Height 5 ft 6 in Blood Pressure Location Lt brachial Position Sitting Intake Visit Reasons: 2 month follow up Intake Note: Radha presents in the office as a 2 months follow up. CC: Specialist Icu Required: No Allergies No Known Allergies [No Known Allergies*] Allergy (Verified 11/19/23 14:23) HPI Comments Details: This is a 36-year-old female who is presenting for follow up: Initial visit 03/11/22: Patient states that for the past 3 months, she has been experiencing abdominal pain associated with loose watery diarrhea. Describes abdominal pain as sharp shooting present in the middle of her abdomen that gets worse when she has to pass a bowel movement. Her bowel movements are loose and watery at least 2 to 3 times a day. No nighttime symptoms. Has seen occasional blood on wiping. Also endorses some degree of tenesmus. Has experienced at least 2-3 lb weight loss in the last 2 months. She thinks the pain sometimes gets triggered with fatty food, and has been avoiding it for the past 1-2 weeks with some response. Therapy so far includes Bentyl and basement supplement with modest improvement. No new medications in the last 6 months. No recent travel or changes in water supply. No sick contacts. Was seen at [facility] as well as her primary care for the similar complaints. Celiac serology with IgG negative, infectious panel negative. C diff and Giardia not checked. Labs: Fecal calpro 330, CRP 0.03 Colonoscopy 04/11/22: Mucosa: Erythema congestion and erosions were noted in the rectum with sharp demarcation at 20 cm. Patchy erythema and erosions were noted in the cecum. Superficial ulcerations noted in terminal ileum up to 10 cm. Ascending, transverse, descending and sigmoid colon appeared normal on endoscopic exam. Cold forceps biopsies were obtained from terminal ileum, cecum, ascending, transverse, descending and sigmoid colon; and rectum. Path: A.? Terminal ileum, biopsy:? Small intestinal mucosa within normal limits. B.? Ileocecal valve, biopsy:? Ileocolonic mucosa with mild crypt disarray and prominent reactive lymphoid aggregate. C.? Cecum, biopsy:? Chronic, mildly active, colitis. D.? Colon, ascending, biopsy:? Colonic mucosa within normal limits. E.? Colon, transverse, biopsy:? Colonic mucosa within normal limits F. ? Colon, descending, biopsy:? Colonic mucosa within normal limits G.? Colon, sigmoid, biopsy? Colonic mucosa within normal limits: H.? Rectum, biopsy:? Chronic, mildly active, proctitis. 04/22/22: Started prednisone on 04/16. Reports complete resolution of abdominal pain and diarrhea. Now has formed bowel movements every 1-2 days. Has not seen any further blood. Also denies any rashes, joint pains or visual changes. 06/17/22: Accompanied by her daughters. Reports no abdominal symptoms when she takes the medication as prescribed, however more recently, has skipped a few doses here and there, and after skipping 2 days in a row, she notices increased abdominal pain, and either diarrhea or constipation. However, once she resumes oral mesalamine, symptoms go away within 3-4 days. Took rectal supp for a few weeks only and self discontinued. Bowel movements are formed, once every day or every other day, no blood. Patient is also status post bilateral salpingectomy 05/10/22 for permanent control. 09/02/22: Currently no abd complaints. No abd pain, diarrhea, blood in stool. Labs reviewed and fecal calpro is 5 which represents excellent response to mesalamine. She does report missing dose pretty often however, at least 1-2 times/week and remembers when has return of abd cramping and urgency. 03/10/23: Reports no gastrointestinal complaints. Has been very compliant with her meds since last visit. No abd pain, diarrhea, blood in stool or urgency. Has not had to reach for meslamine enemas. Cont on PO mesalamine 2.4g/day. Labs reviewed and CRP remains undetectable. Fecal calpro pending. 10/16/23: Impression: 1. Patchy colitis and ? ileitis. No rectal involvement noted today. 2. Internal hemorrhoids Recommendations: - Likely Crohn's disease - Await path results. - Start Prednisone 40mg PO once daily x 14 days followed by a taper. - Will discuss switch in therapy - likely anti-TNF vs entyvio. Path: Diagnosis A. Terminal ileum, biopsy: Ileal mucosa with focal lamina propria hemorrhage and no specific change; no ileitis, granulomas or dysplasia. B. Colon, cecum, biopsy: Mild active colitis with minimal crypt distortion; no granulomas or dysplasia. C. Colon, ascending, biopsy: Colonic mucosa with lymphoid aggregates otherwise no specific change; no colitis, granulomas or dysplasia. D. Colon, transverse, biopsy: Colonic mucosa with focal mild active colitis and mucosal microgranulomas; negative for dysplasia. E. Colon, descending, biopsy: Chronic colitis with mild to moderate activity, crypt abscesses, and possible mucosal microgranuloma; negative for dysplasia. F. Colon, sigmoid, biopsy: Colonic mucosa with focal moderate active colitis; negative for granulomas and dysplasia. G. Colon, rectum, biopsy: Chronic colitis/proctitis with mild to moderate activity, and mucosal microgranulomas; negative for dysplasia. Comment: Appearances are compatible with chronic inflammatory bowel disease and clinical correlation is necessary 10/27/23: When pt was seen in pre-op did mention chronic diarrhea x 2 weeks ongoing despite taking the mesalamine. Based on endoscopic appearance suspicion was for active crohns and was started on pred course. Reports sx improved with the 40mg dosing - will be due for taper later this week. We had also discussed possibility of starting biologics in the post-op and pt was given hand outs on IFX, vedo and stelara. She is here to review tx options further. TSPOT and HBV neg from 06/2023 labs. 01/12/24: Here for follow up. See phone notes, getting set up for entyvio. Reports ok response to pred so far. On 10mg every other day. No abd pain. 1-2BMs per day, formed. No blood. PFSH Medical History RSV (acute bronchiolitis due to respiratory syncytial virus) Viral syndrome Ulcerative colitis Migraine Asthma Memory loss Physical exam Central abdominal pain Upper respiratory tract infection Sterilization Vaginal discharge Well woman exam with routine gynecological exam Anxiety Preop cardiovascular exam Fungal dermatitis Pre-op evaluation Depot contraception Surgical History H/O tubal ligation H/O colonoscopy Hx of abdominal surgery History of loop electrical excision procedure (LEEP) Family History Mother History of hypertension Hx of diabetes mellitus History of high cholesterol Father Murder Daughter In good health Daughter In good health Sister No problems noted. Brother No problems noted. Sister No problems noted. Sister No problems noted. 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 Gender identity: Female Cognitive needs: No Hearing needs: No Vision needs: Yes Female Reproductive History Menstrual Age of Menarche: 15 Review of Systems Const All systems reviewed & are unremarkable except as noted in HPI and below Physical Exam Vital Signs: No apparent distress Nonicteric Abdomen soft, nondistended Alert and oriented x3, normal gait Assessment & Plan Assessment & Plan (1) Crohn's disease: Code(s): K50.90 - Crohn's disease, unspecified, without complications Category: Medical Plan Discussed with the pt that patchy involvement on colo and microgranulomas on path more consistent with crohns than UC. Will recommend escalating therapy which the pt is agreeable to. Reviewed that based on age of presentation and overall disease activity likely falls in low-risk category. Pt has decided to go with Entyvio due to safety profile and gut selectivity as well as option for S/C formulation available now. TSPOT and Hep serologies negative. Plan: - Entyvio 300mg IV at 0,2,6 weeks for induction - To be followed by 108 mcg S/C q2w after last infusion - Will need entyvio drug and Ab levels checked BEFORE 5th dose. - Alongside CBC, CMP, CRP and fecal calpro. - COnt pred 10 every other day for now. No further refills needed once this is complete, unless pt symptomatic. - Follow up 10 weeks Orders: Orders US abdomen complete 01/12/24 R10.9 - Unspecified abdominal pain Medications: New psyllium husk mix into at least 8 oz of water or juice before administering 1 tbsp PO DAILY 284 grams 0RF Coding Level of Care Code Est Pt Level 5 (38308) Diagnoses Crohn's disease K50.90
== END 2024-01-12 11:12 | disposition home or self-care (01) ==
PROVIDERS: PCP Internal Medicine; Visit Provider Internal Medicine
DX: K50.90 Crohn's disease, unspecified, without complications (principal)
CPT/HCPCS: 99214

== ENCOUNTER → 2024-01-12 10:36 | Outpatient (BNVA) | payer OTHER, SELFPAY | PROVIDERS: PCP Internal Medicine; Visit Provider Internal Medicine | DX: K50.90 Crohn's disease, unspecified, without complications (principal) | CPT/HCPCS: 99212 ==

== ENCOUNTER 2024-01-16 09:37 | Outpatient (REF) | payer OTHER, SELFPAY ==
--- NOTE | ~2024-01-16 | US_ITS ---
EXAMINATION: US ABDOMEN COMPLETE CLINICAL INFORMATION: Unspecified abdominal pain. COMPARISON: CT abdomen and pelvis 03/25/2022. TECHNIQUE: Real-time imaging of the abdominal viscera. FINDINGS: PANCREAS: Normal. ABDOMINAL AORTA: The proximal, mid, and distal segments are normal in caliber. INFERIOR VENA CAVA: Visualized portions are normal. LIVER: Normal. The liver is normal in size. The liver contour is normal. Parenchymal echogenicity is normal. No focal hepatic lesion. There is no intrahepatic biliary duct dilatation seen. GALLBLADDER: Normal. The gallbladder is physiologically distended without evidence of stones, sludge, polyps, wall thickening or pericholecystic fluid. COMMON BILE DUCT: Normal in caliber measuring 0.3 cm in diameter. RIGHT KIDNEY: Normal. No hydronephrosis. No renal calculi or focal parenchymal lesions. The kidney measures 11.7 cm in maximum dimension. LEFT KIDNEY: Normal. No hydronephrosis. No renal calculi or focal parenchymal lesions. The kidney measures 11.3 cm in maximum dimension. SPLEEN: Normal. The spleen measures 9.4 cm in maximum dimension. FREE FLUID: None. US/US abdomen complete IMPRESSION: Unremarkable abdominal ultrasound. Electronically signed by: Pratibha Lange MD 02/02/2024 06:25 PM EDT
== END 2024-01-16 09:38 | disposition home or self-care (01) ==
LOC: HO.US 09:37
PROVIDERS: PCP Internal Medicine; Visit Provider Internal Medicine
DX: R10.9 Unspecified abdominal pain (principal)
CPT/HCPCS: 76700

== ENCOUNTER 2024-01-19 10:39 | Outpatient (AMB) | payer OTHER, SELFPAY ==
--- NOTE | 2024-01-19 11:11 | A.OFFVIS_ITS ---
Intake Visit Reasons: vag itch Spar Machine Operator Required: No Information Interpreted: clinical only Skein Straightener: Skein Straightener Present Allergies No Known Allergies [No Known Allergies*] Allergy (Verified 01/19/24 11:12) Medication List - Last Reconciled 01/19/24 by Mariah Lugo CNM famotidine (Pepcid) 20 mg PO BEDTIME fluticasone propionate 44 mcg/actuation (Flovent HFA) 1 puff inhalation BID 30 days lidocaine 5% 2 patches topical DAILY prednisone Start AFTER completing 40mg dosing. Take 3 tabs x 7 days, then 2 tabs x 7 days and then 1 tab x 7 days. psyllium husk 1 tbsp PO DAILY terconazole 0.8% 1 appful vaginal BEDTIME 3 days Ventolin HFA 90 mcg/actuation (albuterol sulfate) 2 puffs inhalation Q6H PRN 30 days NS Is last menstrual period known: Yes Last menstrual period: 01/08/24 Do you need a note to return to daycare/school/sports/work: No HPI HPI vag itch: Details: Patient has vaginal discharge and she is not sure if it is BV or yeast she did have unprotected intercourse and wants an STD check but she does not feel she needs blood work tests done. She sees Dr. Childers for follow-up her abnormal Paps and had a colposcopy done earlier this summer and reviewed the results with him and has a plan for follow-up with him in 1 year. She gets regular periods her periods started in ended last week. HPI Comments Details: Plan as noted in Dr. Childers's note status post colposcopy ECC biopsy: Discussed with the patient the pathology results of the colposcopy biopsies & endocervical curettage ( mild dysplasia-LAZARUS 1). Discussed with the patient the sensitivity specificity, positive and negative predictive value in detecting cervical cancer in addition discussed the regression, persistence and progression rates. Recommended co-testing in 12 months, if cytology and or HPV are abnormal will proceed was colposcopy biopsy and endocervical curettage. Instructions given to the patient to schedule a co test appointment in 1 year. All questions answered the patient verbalized understanding. PFSH Medical History RSV (acute bronchiolitis due to respiratory syncytial virus) Viral syndrome Ulcerative colitis Migraine Asthma Memory loss Physical exam Central abdominal pain Upper respiratory tract infection Sterilization Vaginal discharge Well woman exam with routine gynecological exam Anxiety Preop cardiovascular exam Fungal dermatitis Pre-op evaluation Depot contraception Surgical History H/O tubal ligation H/O colonoscopy Hx of abdominal surgery History of loop electrical excision procedure (LEEP) Family History Mother History of hypertension Hx of diabetes mellitus History of high cholesterol Father Murder Daughter In good health Daughter In good health Sister No problems noted. Brother No problems noted. Sister No problems noted. Sister No problems noted. 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 We will await testing results she is on the portal. She also may call for the results. Reviewed that they are often on the portal before we even see them. External Female Exam: normal external appearance and normal appearance of the urethra Speculum Exam - Vagina: normal appearance of the vagina and normal vaginal discharge Speculum Exam - Cervix: normal appearance of the cervix and Cervical os closed Results Reviewed Results Reviewed: Name: Radha Bean Age/Sex: 38/F Attending: Katrin Dutton CNM : 1985 Submitted by: Katrin Dutton CNM Copies to: MR #: [id number] Status: DEP REF Collected: 08/26/23 Location: [facility] Received: 08/28/23 Interpretation General Category: Epithelial cell abnormality. Adequacy: Endocervical component present. Interpretation: Low grade squamous intraepithelial lesion (LAZARUS I). HPV mRNA E6/E7: DETECTED This assay detects E6/E7 viral messenger RNA (mRNA) from 14 high-risk HPV types (16, 18, 31, 33, 35, 39, 45, 51, 52, 56, 58, 59, 66, 68) HPV Type 16 RNA: Not Detected HPV Type 18/45 RNA: Not Detected HPV testing performed by [facility], [place], [place]. See reference laboratory portion of the EMR for entire report. Clinical Information LMP: 08/09/2023 Previous PAP test: 09/2020, Neg, neg, 2006 LEEP LAZARUS 2-3 Material Received ThinPrep-Cervical Electronically Signed By: Brianne Taveras 09/15/23 1257 The Pap Test is a screening procedure with the inherent possibility of both false negative and false positive results. Results should be interpreted in the context of historic and current clinical findings. Reliability of the Pap Test is enhanced by performing the test on a regular repetitive basis. Patient: Radha Bean Age/Sex: 38/F MR#: [id number] Page 1 of 1 Name: Radha Bean Age/Sex: 38/F Attending: Vinnie Childers MD : 1985 Submitted by: Vinnie Childers MD Copies to: Stacy Guzmán MD MR #: [id number] Status: DEP REF Collected: 11/12/23 Location: [facility] Received: 11/13/23 Diagnosis A. Endocervix, curettage: Scant benign endocervical glandular epithelium and benign endometrium/ lower uterine segment. B. Cervix, 1:00, biopsy: Squamous and endocervical glandular mucosa; negative for dysplasia. C. Cervix, 4:00, biopsy: Low-grade squamous intraepithelial lesion (mild dysplasia, LAZARUS 1); endocervical glandular mucosa present. D. Cervix, 6:00, biopsy: Squamous and endocervical glandular mucosa with reactive changes; negative for dysplasia. E. Cervix, 9:00, biopsy: Squamous and endocervical glandular mucosa; negative for dysplasia. F. Cervix, 11:00, biopsy: Low-grade squamous intraepithelial lesion (mild dysplasia, LAZARUS 1); endocervical glandular mucosa present. G. Cervix, 12:00, biopsy: Endocervical glandular mucosa; negative for dysplasia; no squamous component present. Comment: The low-grade dysplasia present in the patient's previous Pap test ([id number]) concurs with the current biopsy. Clinical History LGSIL on pap smear of cervix Microscopic Description Microscopic sections reviewed. Material Received A. ECC B. CX bx 1 o'clock C. Cx bx 4 o'clock D. Cx bx 6 o'clock E. Cx bx 9 o'clock F. Cx bx 11 o'clock G. Cx bx 12 o'clock Patient: Radha Bean Age/Sex: 38/F MR#: [id number] Page 1 of 2 Assessment & Plan Assessment & Plan (1) Dysplasia of cervix, low grade (LAZARUS 1): Code(s): N87.0 - Mild cervical dysplasia Category: Medical (2) Vaginal itching: Code(s): N89.8 - Other specified noninflammatory disorders of vagina Category: Medical (3) Encounter for screening examination for sexually transmitted disease: Code(s): Z11.3 - Encounter for screening for infections with a predominantly sexual mode of transmission Category: Medical Plan Testing done today for gonorrhea chlamydia trichomoniasis Gardnerella and Melissa. We will await results and treat accordingly. She may call for the results she likely see them on the portal before we see them. Reviewed her follow-up plan with Dr. Childers for her LAZARUS 1. Plan this point is to we test next year and she will be seeing him for that and it is already scheduled. She has her tubal ligation and she did not feel she needed blood work for STIs today. She reminded this CNM that I was present for the of her younger daughter and she also thought that I may have [facility] at [facility] but the dates would not quite work. Coding Level of Care Code Est Pt Level 3 (62542) Diagnoses Dysplasia of cervix, low grade (LAZARUS 1) N87.0 Vaginal itching N89.8 Encounter for screening examination for sexually transmitted disease Z11.3
== END 2024-01-19 11:51 | disposition home or self-care (01) ==
PROVIDERS: PCP Internal Medicine; Visit Provider Advanced Practice Midwife
DX: N87.0 Mild cervical dysplasia (principal); N89.8 Other specified noninflammatory disorders of vagina; Z11.3 Encounter for screening for infections with a predominantly sexual mode of transmission
CPT/HCPCS: 99213

== ENCOUNTER 2024-01-19 10:39 | Outpatient (REF) | payer OTHER, SELFPAY ==
[2024-01-20 05:53] LABS: CT PCR NOT DETECTED (Not Detect.); NG PCR NOT DETECTED (Not Detect.)
[2024-01-20 09:39] LABS: Bacterial Vaginosis PCR NEGATIVE (Negative); Candida Group PCR DETECTED (Not Detect); Candida glab krusei PCR NOT DETECTED (Not Detect); Trichomonas vaginalis PCR NOT DETECTED (Not Detect)
== END 2024-01-19 10:40 | disposition home or self-care (01) ==
LOC: HO.LAB 10:39
PROVIDERS: PCP Internal Medicine; Visit Provider Advanced Practice Midwife
DX: N89.8 Other specified noninflammatory disorders of vagina (principal); N87.0 Mild cervical dysplasia
CPT/HCPCS: 0352U; 87491; 87591; 99212

== ENCOUNTER 2024-02-19 13:03 | Outpatient (REF) | payer OTHER, SELFPAY ==
[2024-02-19 13:39] LABS: MANUAL DIFF FLAG NO
[2024-02-19 13:59] LABS: Basophils Percent Auto 0.6 % (0-2); Eosinophils Absolute Auto 0.2 X10*3/uL (0.0-0.4); Eosinophils Percent Auto 2.9 % (0-4); Hematocrit 36.5 % (37.0-47.0); Hemoglobin 12.5 g/dl (12.0-16.0); Imm Gran Abs Auto 0.01 X10*3/uL (0.00-0.03); Imm Gran Pct Auto 0.2 % (0.0-0.4); Lymphocytes Absolute Auto 1.9 X10*3/uL (1.2-4.9); Lymphocytes Percent Auto 31.1 % (20-40); Mean Corpuscular HGB Conc 34.2 g/dl (31.0-35.0); Mean Corpuscular Hemoglobin 30.5 pg (27.0-33.0); Mean Platelet Volume 8.7 fL (9.4-12.3); Monocytes Absolute Auto 0.6 X10*3/uL (0.1-1.2); Monocytes Percent Auto 8.9 % (2-11); Neutrophils Absolute Auto 3.5 x10*3/uL (2.0-8.3); Neutrophils Percent Auto 56.3 % (45-73); Platelet Count 372 X10*3/uL (160-400); Red Cell Distribution Width 11.9 % (11.0-16.0); White Blood Count 6.2 X10*3/uL (4.8-10.8)
[2024-02-19 15:27] LABS: Adenovirus PCR Not Detected (Not Detect.); Bordetella parapertussis PCR Not Detected (Not Detect.); Bordetella pertussis PCR Not Detected (Not Detect.); Chlamydia pneumoniae PCR Not Detected (Not Detect.); Coronavirus 229E PCR Not Detected (Not Detect.); Coronavirus HKU1 PCR Not Detected (Not Detect.); Coronavirus NL63 PCR Not Detected (Not Detect.); Coronavirus OC43 PCR Not Detected (Not Detect.); Human metapneumovirus PCR Not Detected (Not Detect.); Influenza A PCR Not Detected (Not Detect.); Influenza B PCR Not Detected (Not Detect.); Mycoplasma pneumoniae PCR Not Detected (Not Detect.); Parainfluenza 1 PCR Not Detected (Not Detect.); Parainfluenza 2 PCR Not Detected (Not Detect.); Parainfluenza 3 PCR Not Detected (Not Detect.); Parainfluenza 4 PCR Not Detected (Not Detect.); RSV PCR Not Detected (Not Detect.); Rhino/Enterovirus PCR Not Detected (Not Detect.)
[2024-02-19 15:43] LABS: SARS-CoV-2 PCR Not Detected (Not Detect.)
== END 2024-02-19 13:04 | disposition home or self-care (01) ==
LOC: HO.LAB 13:03
PROVIDERS: PCP Internal Medicine; Visit Provider Internal Medicine
DX: R09.89 Other specified symptoms and signs involving the circulatory and respiratory systems (principal)
CPT/HCPCS: 85025; 87633

== ENCOUNTER 2024-02-28 12:10 | Outpatient (REF) | payer OTHER, SELFPAY | END 2024-02-28 12:11 | disposition home or self-care (01) | LOC: HO.LAB 12:10 | PROVIDERS: PCP Internal Medicine | DX: K13.70 Unspecified lesions of oral mucosa (principal) | CPT/HCPCS: 87070; 87205 ==

== ENCOUNTER 2024-02-28 12:10 | Outpatient (AMB) | payer OTHER, SELFPAY ==
[2024-02-28 12:18] VITALS: BP 120/72; PULSE 76; TEMP 36.6; O2SAT 97
--- NOTE | 2024-02-28 12:18 | AM.OFFWIN_ITS ---
Intake Vital Signs 3 02/28/24 12:18 Height 5 ft 6 in BP 120/72 Blood Pressure Location Lt brachial Position Sitting Pulse 76 Pulse Source Pulse Oximeter Temp 97.9 F Temp Source Temporal Artery Scan Pulse Oximetry (%) 97 Intake Visit Reasons: EP/ Thrush Intake Note: pt is here for c/o possible thrush Patient Tobacco Use Status: Former Tobacco user Allergies No Known Allergies [No Known Allergies*] Allergy (Verified 04/16/24 13:10) Do you need a note to return to daycare/school/sports/work: No HPI EP/ Thrush 2 HPI0 Details Patient is a 38-year-old [facility] Medical History RSV (acute bronchiolitis due to respiratory syncytial virus) Viral syndrome Ulcerative colitis Migraine Asthma Memory loss Physical exam Central abdominal pain Upper respiratory tract infection Sterilization Vaginal discharge Well woman exam with routine gynecological exam Anxiety Preop cardiovascular exam Fungal dermatitis Pre-op evaluation Depot contraception Surgical History H/O tubal ligation H/O colonoscopy Hx of abdominal surgery History of loop electrical excision procedure (LEEP) Family History Mother History of hypertension Hx of diabetes mellitus History of high cholesterol Father Murder Daughter In good health Daughter In good health Sister No problems noted. Brother No problems noted. Sister No problems noted. Sister No problems noted. 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 Gender identity: Female Cognitive needs: No Hearing needs: No Vision needs: Yes Female Reproductive History Menstrual Age of Menarche: 15 Physical Exam Vital Signs: Last Vital Signs Temp 97.9 F 02/28/24 12:18 Pulse 76 02/28/24 12:18 BP 120/72 02/28/24 12:18 Pulse Ox 97 02/28/24 12:18 HEENT Mouth: abnormal oral mucosae, lip normal, tongue normal, oropharynx abnormals, moist mucous membranes, No moist mucous membranes abnormal, no drooling, no fetor hepaticus, breath no malodorous, No mouth trauma, no muffled voice and other (White circular Lesion to the left buccal mucosa) Mouth/tongue images: 2 1. White macerated lesion Approximately a cm in area, with no surrounding edema erythema, bleeding or discharge. Normal tongue Teeth and gingiva: dentition normal and gingiva normal Assessment & Plan Assessment & Plan (1) Oral mucosal lesion: Code(s): K13.70 - Unspecified lesions of oral mucosa Plan Patient is a 38-year-old female with ulcerative colitis who is undergoing IV infusions with a biologic agent. She reports that she just had an infusion, and she noticed something in her mouth that she suspected was thrush. She is very anxious to treat this as she is leaving for a wedding later today. I told her that I cannot definitively diagnose her lesion, however it did not look like thrush, and I suspect that it is due either to her infusion or her ulcerative colitis. However it is not painful, and she has no other symptoms. I did swab the lesion to rule out infection, however it does not appear to be infectious in nature. I think she needs to follow up with her GI specialist. She reports that she will call her them on Friday. In the meantime, she still requests nystatin for possible thrush. I do not think this should exacerbate her lesion, so I did write it for her today. However I told her to monitor symptoms closely, and follow up sooner as needed if they worsen, or to go to emergency department with worrisome symptoms. Orders: Orders 2 Routine Culture w Gram Stain 02/28/24 K13.70 - Unspecified lesions of oral mucosa Medications: New 2 nystatin swish in the mouth for a few minutes before swallowing 500,000 units (5 mL) PO QID 140 mL 1RF 1 week Coding Level of Care Code Est Pt Level 4 (32757) Diagnoses Oral mucosal lesion K13.70
== END 2024-02-28 13:08 | disposition home or self-care (01) ==
PROVIDERS: PCP Internal Medicine; Visit Provider Physician Assistant Medical
DX: K13.70 Unspecified lesions of oral mucosa (principal)

== ENCOUNTER 2024-03-15 09:30 | Outpatient (RCR) | payer OTHER, SELFPAY ==
[2024-01-30 09:19] VITALS: BP 123/81; PULSE 80; RESP 16; TEMP 37.1; O2SAT 97
[2024-01-30] MEDS: Vedolizumab 300 MG in 0.9 % Sodium Chloride 250 ML 510 MG IV (10:38)
[2024-02-16 09:58] VITALS: BP 119/74; PULSE 78; RESP 16; TEMP 36.6; O2SAT 96
[2024-02-16] MEDS: Vedolizumab 300 MG in 0.9 % Sodium Chloride 250 ML 510 MG IV (10:45)
[2024-03-15 09:55] VITALS: BP 119/80; PULSE 85; RESP 16; TEMP 36.6; O2SAT 96
[2024-03-15] MEDS: Vedolizumab 300 MG in 0.9 % Sodium Chloride 250 ML 510 MG IV (10:38)
[2024-03-15] MEDS: 0.9 % Sodium Chloride Flush 10 ML SYRINGE 5 ML IVFLUSH (11:18)
== END 2024-03-15 11:22 | disposition home or self-care (01) ==
LOC: HO.INF 09:30
PROVIDERS: Visit Provider Internal Medicine
DX: K50.90 Crohn's disease, unspecified, without complications (principal)
CPT/HCPCS: 96365; J3380

== ENCOUNTER 2024-03-26 14:27 | Outpatient (AMB) | payer OTHER, SELFPAY ==
--- NOTE | 2024-03-26 14:29 | MHC.OFFVIS ---
Vital Signs 03/26/24 14:38 Height 5 ft 6 in Weight 180 lb 12.465 oz BMI 29.2 BP 124/79 Blood Pressure Location Lt brachial Position Sitting Pulse 87 Intake Visit Reasons: 10 weeks Crohns 30 mins Intake Note: Radha presents in the office as a 10 week follow up. CC: She states that she is not having any concerns at this time. Allergies No Known Allergies [No Known Allergies*] Allergy (Verified 03/26/24 14:38) HPI Comments Details: This is a 36-year-old female who is presenting for follow up: Initial visit 03/11/22: Patient states that for the past 3 months, she has been experiencing abdominal pain associated with loose watery diarrhea. Describes abdominal pain as sharp shooting present in the middle of her abdomen that gets worse when she has to pass a bowel movement. Her bowel movements are loose and watery at least 2 to 3 times a day. No nighttime symptoms. Has seen occasional blood on wiping. Also endorses some degree of tenesmus. Has experienced at least 2-3 lb weight loss in the last 2 months. She thinks the pain sometimes gets triggered with fatty food, and has been avoiding it for the past 1-2 weeks with some response. Therapy so far includes Bentyl and basement supplement with modest improvement. No new medications in the last 6 months. No recent travel or changes in water supply. No sick contacts. Was seen at [facility] as well as her primary care for the similar complaints. Celiac serology with IgG negative, infectious panel negative. C diff and Giardia not checked. Labs: Fecal calpro 330, CRP 0.03 Colonoscopy 04/11/22: Mucosa: Erythema congestion and erosions were noted in the rectum with sharp demarcation at 20 cm. Patchy erythema and erosions were noted in the cecum. Superficial ulcerations noted in terminal ileum up to 10 cm. Ascending, transverse, descending and sigmoid colon appeared normal on endoscopic exam. Cold forceps biopsies were obtained from terminal ileum, cecum, ascending, transverse, descending and sigmoid colon; and rectum. Path: A.? Terminal ileum, biopsy:? Small intestinal mucosa within normal limits. B.? Ileocecal valve, biopsy:? Ileocolonic mucosa with mild crypt disarray and prominent reactive lymphoid aggregate. C.? Cecum, biopsy:? Chronic, mildly active, colitis. D.? Colon, ascending, biopsy:? Colonic mucosa within normal limits. E.? Colon, transverse, biopsy:? Colonic mucosa within normal limits F. ? Colon, descending, biopsy:? Colonic mucosa within normal limits G.? Colon, sigmoid, biopsy? Colonic mucosa within normal limits: H.? Rectum, biopsy:? Chronic, mildly active, proctitis. 04/22/22: Started prednisone on 04/16. Reports complete resolution of abdominal pain and diarrhea. Now has formed bowel movements every 1-2 days. Has not seen any further blood. Also denies any rashes, joint pains or visual changes. 06/17/22: Accompanied by her daughters. Reports no abdominal symptoms when she takes the medication as prescribed, however more recently, has skipped a few doses here and there, and after skipping 2 days in a row, she notices increased abdominal pain, and either diarrhea or constipation. However, once she resumes oral mesalamine, symptoms go away within 3-4 days. Took rectal supp for a few weeks only and self discontinued. Bowel movements are formed, once every day or every other day, no blood. Patient is also status post bilateral salpingectomy 05/10/22 for permanent control. 09/02/22: Currently no abd complaints. No abd pain, diarrhea, blood in stool. Labs reviewed and fecal calpro is 5 which represents excellent response to mesalamine. She does report missing dose pretty often however, at least 1-2 times/week and remembers when has return of abd cramping and urgency. 03/10/23: Reports no gastrointestinal complaints. Has been very compliant with her meds since last visit. No abd pain, diarrhea, blood in stool or urgency. Has not had to reach for meslamine enemas. Cont on PO mesalamine 2.4g/day. Labs reviewed and CRP remains undetectable. Fecal calpro pending. 10/16/23: Impression: 1. Patchy colitis and ? ileitis. No rectal involvement noted today. 2. Internal hemorrhoids Recommendations: - Likely Crohn's disease - Await path results. - Start Prednisone 40mg PO once daily x 14 days followed by a taper. - Will discuss switch in therapy - likely anti-TNF vs entyvio. Path: Diagnosis A. Terminal ileum, biopsy: Ileal mucosa with focal lamina propria hemorrhage and no specific change; no ileitis, granulomas or dysplasia. B. Colon, cecum, biopsy: Mild active colitis with minimal crypt distortion; no granulomas or dysplasia. C. Colon, ascending, biopsy: Colonic mucosa with lymphoid aggregates otherwise no specific change; no colitis, granulomas or dysplasia. D. Colon, transverse, biopsy: Colonic mucosa with focal mild active colitis and mucosal microgranulomas; negative for dysplasia. E. Colon, descending, biopsy: Chronic colitis with mild to moderate activity, crypt abscesses, and possible mucosal microgranuloma; negative for dysplasia. F. Colon, sigmoid, biopsy: Colonic mucosa with focal moderate active colitis; negative for granulomas and dysplasia. G. Colon, rectum, biopsy: Chronic colitis/proctitis with mild to moderate activity, and mucosal microgranulomas; negative for dysplasia. Comment: Appearances are compatible with chronic inflammatory bowel disease and clinical correlation is necessary 10/27/23: When pt was seen in pre-op did mention chronic diarrhea x 2 weeks ongoing despite taking the mesalamine. Based on endoscopic appearance suspicion was for active crohns and was started on pred course. Reports sx improved with the 40mg dosing - will be due for taper later this week. We had also discussed possibility of starting biologics in the post-op and pt was given hand outs on IFX, vedo and stelara. She is here to review tx options further. TSPOT and HBV neg from 06/2023 labs. 01/12/24: Here for follow up. See phone notes, getting set up for entyvio. Reports ok response to pred so far. On 10mg every other day. No abd pain. 1-2BMs per day, formed. No blood. 03/26/24: Here for follow up. Pred taper completed. Started Enytvio induction on and finished on 03/15. Has opted for s/c maintenance. First dose will be due May 10. Reports feeling much better. No diarrhea has formed BM 1-2 per day. No blood. No abd pain. PFSH Medical History RSV (acute bronchiolitis due to respiratory syncytial virus) Viral syndrome Ulcerative colitis Migraine Asthma Memory loss Physical exam Central abdominal pain Upper respiratory tract infection Sterilization Vaginal discharge Well woman exam with routine gynecological exam Anxiety Preop cardiovascular exam Fungal dermatitis Pre-op evaluation Depot contraception Surgical History H/O tubal ligation H/O colonoscopy Hx of abdominal surgery History of loop electrical excision procedure (LEEP) Family History Mother History of hypertension Hx of diabetes mellitus History of high cholesterol Father Murder Daughter In good health Daughter In good health Sister No problems noted. Brother No problems noted. Sister No problems noted. Sister No problems noted. 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 Gender identity: Female Cognitive needs: No Hearing needs: No Vision needs: Yes Female Reproductive History Menstrual Age of Menarche: 15 Review of Systems Const All systems reviewed & are unremarkable except as noted in HPI and below Physical Exam Vital Signs: Last Vital Signs Pulse 87 03/26/24 14:38 BP 124/79 03/26/24 14:38 BMI result Body Mass Index 29.2 No apparent distress Nonicteric Abdomen soft, nondistended Alert and oriented x3, normal gait Assessment & Plan Assessment & Plan (1) Crohn's disease: Code(s): K50.90 - Crohn's disease, unspecified, without complications Category: Medical Plan Discussed with the pt that patchy involvement on colo and microgranulomas on path more consistent with crohns than UC. Reviewed that based on age of presentation and overall disease activity likely falls in low-risk category. Pt has decided to go with Entyvio due to safety profile and gut selectivity as well as option for S/C formulation available now. TSPOT and Hep serologies negative. Good response to entyvio induction so far. Will start maintenance in Apr. Pt also due for teaching for entyvio pen. Msg sent to RN. Plan: - Entyvio 108 mcg S/C to start on 05/10 on q2w nelda - Will need entyvio drug and Ab levels checked BEFORE 5th dose. Reminder set. - Alongside CBC, CMP, CRP and fecal calpro. - Entyvio pen teaching to be coordinated as above - Follow up 3 months Orders: Orders Complete Blood Count no Diff 05/19/24 K50.90 - Crohn's disease, unspecified, without complications Comprehensive Met. Panel 05/19/24 K50.90 - Crohn's disease, unspecified, without complications C Reactive Protein 05/19/24 K50.90 - Crohn's disease, unspecified, without complications Calprotectin, Fecal 05/19/24 K50.90 - Crohn's disease, unspecified, without complications Vedolizumab Qn with Ab 05/19/24 K50.90 - Crohn's disease, unspecified, without complications Coding Level of Care Code Est Pt Level 4 (17240) Complex EM visit Add On G2211 Diagnoses Crohn's disease K50.90
[2024-03-26 14:38] VITALS: BP 124/79; PULSE 87; BMI 29.2
== END 2024-03-26 15:44 | disposition home or self-care (01) ==
LOC: HO.HGI 14:28
PROVIDERS: PCP Internal Medicine; Visit Provider Internal Medicine
DX: K50.90 Crohn's disease, unspecified, without complications (principal)
CPT/HCPCS: 99214; G2211

== ENCOUNTER → 2024-03-26 14:27 | Outpatient (BNVA) | payer OTHER, SELFPAY | PROVIDERS: PCP Internal Medicine; Visit Provider Internal Medicine | DX: K50.90 Crohn's disease, unspecified, without complications (principal) | CPT/HCPCS: 99212 ==

== ENCOUNTER 2024-04-16 13:06 | Outpatient (AMB) | payer OTHER, SELFPAY ==
--- NOTE | 2024-04-16 13:07 | MHC.OFFVIS ---
Vital Signs 04/16/24 13:08 Height 5 ft 6 in Weight 180 lb BMI 29.0 BP 114/64 Blood Pressure Location Lt brachial Position Sitting Intake Visit Reasons: ? vagibal itching Allergies No Known Allergies [No Known Allergies*] Allergy (Verified 04/16/24 13:10) HPI Comments Details: Patient is here today due to increased vaginal discharge and slight external itching. She is prone to yeast and BV. Desires to have STD testing but not blood work today. PFSH Medical History RSV (acute bronchiolitis due to respiratory syncytial virus) Viral syndrome Ulcerative colitis Migraine Asthma Memory loss Physical exam Central abdominal pain Upper respiratory tract infection Sterilization Vaginal discharge Well woman exam with routine gynecological exam Anxiety Preop cardiovascular exam Fungal dermatitis Pre-op evaluation Depot contraception Surgical History H/O tubal ligation H/O colonoscopy Hx of abdominal surgery History of loop electrical excision procedure (LEEP) Family History Mother History of hypertension Hx of diabetes mellitus History of high cholesterol Father Murder Daughter In good health Daughter In good health Sister No problems noted. Brother No problems noted. Sister No problems noted. Sister No problems noted. 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 Gender identity: Female Cognitive needs: No Hearing needs: No Vision needs: Yes Female Reproductive History Menstrual Age of Menarche: 15 Duration of menses: 3-5 days Date of last menstrual period: 03/29/24 Review of Systems Const All systems reviewed & are unremarkable except as noted in HPI and below Physical Exam Vital Signs: Last Vital Signs BP 114/64 04/16/24 13:08 BMI result Body Mass Index 29.0 Const General: cooperative, healthy appearing and no acute distress Orientation/consciousness: patient oriented x3 GI Inspection: Yes normal to inspection Palpation (GI): Soft to palpation and Other GI palpation findings present (Nontender) Rectal Exam - Female: visual inspection normal General: Yes bladder normal to palpation External Female Exam: normal appearance of the urethra Speculum Exam - Vagina: normal appearance of the vagina, normal palpation and abnormal vaginal discharge (Thickened yellow) Speculum Exam - Cervix: normal appearance of the cervix and normal palpation Bimanual exam- vagina & uterus: normal bimanual exam, normal palpation, uterine size normal, bladder normal to palpation, normal palpation, uterine shape normal and non-tender Bimanual Exam- Adnexa, other: normal adnexae Neuro General: patient oriented x3 Assessment & Plan Assessment & Plan (1) Vulvar irritation: Code(s): N90.89 - Other specified noninflammatory disorders of vulva and perineum Plan Discussed: Symptoms most likely are due to yeast will initiate Diflucan today, await test results for plan of care. GC and chlamydia and BV panel pending. Advised use mild soap if any at all, rinse well, cotton clothing. Discuss with her GI specialist the role or use of probiotics before taking. All of her questions and concerns were addressed to the best of my ability and shared decision making. She is agreeable to the plan of care. This note is constructed using voice recognition software. While every effort has been made to ensure accuracy, personal lines sales executive errors may have been included. Medications: New fluconazole repeat in 5-7days if needed for symptoms 150 mg PO ONCE 1 tab 0RF personal 1 day Coding Level of Care Code Est Pt Level 3 (03447) Diagnoses Vulvar irritation N90.89
[2024-04-16 13:08] VITALS: BP 114/64; BMI 29.0
== END 2024-04-16 13:28 | disposition home or self-care (01) ==
PROVIDERS: PCP Internal Medicine; Visit Provider Advanced Practice Midwife
DX: N90.89 Other specified noninflammatory disorders of vulva and perineum (principal)
CPT/HCPCS: 99213

== ENCOUNTER 2024-04-16 13:06 | Outpatient (REF) | payer OTHER, SELFPAY ==
[2024-04-17 05:56] LABS: CT PCR NOT DETECTED (Not Detect.); NG PCR NOT DETECTED (Not Detect.)
[2024-04-17 12:03] LABS: Bacterial Vaginosis PCR NEGATIVE (Negative); Candida Group PCR NOT DETECTED (Not Detect); Candida glab krusei PCR NOT DETECTED (Not Detect); Trichomonas vaginalis PCR NOT DETECTED (Not Detect)
== END 2024-04-16 13:07 | disposition home or self-care (01) ==
LOC: HO.LNP 13:06
PROVIDERS: PCP Internal Medicine; Visit Provider Advanced Practice Midwife
DX: N89.8 Other specified noninflammatory disorders of vagina (principal); N90.89 Other specified noninflammatory disorders of vulva and perineum
CPT/HCPCS: 0352U; 87491; 87591; 99212

== ENCOUNTER 2024-07-14 12:46 | Outpatient (AMB) | payer OTHER, SELFPAY ==
[2024-07-14 12:56] VITALS: BP 112/70; BMI 29.5
--- NOTE | 2024-07-14 12:56 | MHC.PC.OV ---
Vital Signs 07/14/24 12:56 Height 5 ft 6 in Weight 183 lb BMI 29.5 BP 112/70 Blood Pressure Location Lt brachial Position Sitting Intake Visit Reasons: physical Intake Note: Patient here for a physical exam Parts Cleaner Required: No Accompanied by: Self / Same As Patient Allergies No Known Allergies [No Known Allergies*] Allergy (Verified 07/14/24 13:07) Medication List - Last Reconciled 07/14/24 by Stacy Quinones MD albuterol sulfate 2.5 mg (3 mL) inhalation Q6H PRN 30 days cholecalciferol (vitamin D3) 1,250 mcg PO QWEEK 90 days fluticasone propionate 44 mcg/actuation (Flovent HFA) 1 puff inhalation BID 30 days nebulizers (AeroEclipse II Nebulizer) As directed vedolizumab (Entyvio) 300 mg IV Q8W Ventolin HFA 90 mcg/actuation (albuterol sulfate) 2 puffs inhalation Q6H PRN 30 days NS Tobacco use date assessed: 07/14/24 Dental Screening Dental Screen Date: 07/14/24 Did you have a dental visit in the last 12 months?: Yes Did you have a dental problem in the last 6 months where you did not have access to dental care?: No Was dental information given to patient?: Patient has dentist HPI HPI Comments History of Present Illness Details The patient is a 38-year-old female presenting for her annual physical examination. The patient has a history of Crohn's Disease with treatment involving infusions of Entyvio every two months. She reports improvement in her condition following recent prednisone therapy. The patient denies current symptoms related to Crohn's. She has a history of unspecified depression and anxiety, exacerbated during her menstrual cycle. This has led to a consideration of Premenstrual Dysphoric Disorder (PMDD), but the patient is hesitant about medications. She experiences difficulty focusing and an increase in appetite during these times, contributing to weight gain. The patient has been treated for these mental health issues through therapy, although she has expressed a desire for an in-person therapeutic connection. The patient also has a past medical history significant for vitamin D deficiency, managed with weekly supplementation. Surgical history includes a tubal ligation and liposuction. The patient's father at age 19, and her mother is alive with hypertension and diabetes. The patient has quit smoking, drinks wine infrequently, and reports a history of hippocampal surgery. - Vaccinations are up to date. - Last Pap smear was conducted last year. - Regular follow-ups for Crohn?s disease management with Entyvio infusions. - Vitamin D supplementation once weekly. - Discussion of dietary measures to manage weight and appetite, and incorporation of home exercise using YouTube resources. PFSH Medical History RSV (acute bronchiolitis due to respiratory syncytial virus) Viral syndrome Migraine Asthma Memory loss Physical exam Central abdominal pain Upper respiratory tract infection Sterilization Vaginal discharge Well woman exam with routine gynecological exam Anxiety Preop cardiovascular exam Fungal dermatitis Pre-op evaluation Depot contraception Surgical History H/O tubal ligation H/O colonoscopy Hx of abdominal surgery History of loop electrical excision procedure (LEEP) Family History Mother History of hypertension Hx of diabetes mellitus History of high cholesterol Father Murder Daughter In good health Daughter In good health Sister No problems noted. Brother No problems noted. Sister No problems noted. Sister No problems noted. 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 1. Little interest or pleasure in doing things: not at all 2. Feeling down, depressed, or hopeless: several days 3. Trouble falling or staying asleep, or sleeping too much: several days 4. Feeling tired or having little energy: several days 5. Poor appetite or overeating: several days 6. Feeling bad about yourself - or that you are a failure or have let yourself or your family down: not at all 7. Trouble concentrating on things, such as reading the newspaper or watching television: nearly every day 8. Moving or speaking so slowly that other people could have noticed. Or the opposite - being so fidgety or restless that you have been moving around a lot more than usual: several days 9. Thoughts that you would be better off or of hurting yourself in some way: not at all Total score: 8 Depression Screening Interpretation: Positive Depression Screening Follow-up: Existing condition and Follow-up Visit Requested Depression Screening Done: Yes 19840 - PHQ-9 Billing: Yes Source: Developed by Drs. Efraín Azevedo, Jordana Lyles, Hal Guzman and colleagues, with an educational jared from [employer]. Thrive Questionnaire Date Thrive assessed: 07/14/24 I am a: Patient What is your living situation today?: I have a steady place to live Within the past 12 months, did the food you bought not last and you didn't have the money to get more?: Never true Within the past 12 months, did you worry whether your food would run out before you got money to buy more?: Never true Do you have trouble paying for medicines?: No Do you have trouble getting transportation to medical appointments?: No Do you have trouble paying your heating and electricity bill?: No Do you have trouble taking care of your child, family member or friend?: No Do you have trouble with day-to-day activities such as bathing, preparing meals, shopping, managing finances, etc.?: No Are you currently unemployed and looking for a job?: No Are you interested in more education?: No Please select the resources that you would like help with: None Currently or been in a relationship where the following occur: No concerns reported THRIVE Score: 0 AUDIT C Alcohol Use Questionnaire (AUDIT-C) 1. How often do you have a drink containing alcohol?: Monthly or less 2. How many drinks containing alcohol do you have on a typical day when you are drinking?: 1 or 2 3. How often do you have six or more drinks on one occasion?: Never Total Score: 1 Score Reviewed/Action Taken: No SARTHAK-7 AMB Questionnaire SARTHAK-7 Date SARTHAK - 7 assessed: 07/14/24 Feeling nervous, anxious, or on edge: 3 = Nearly every day Not being able to stop or control worryin = Several days Worrying too much about different things: 3 = Nearly every day Trouble relaxin = Nearly every day Being so restless that it is hard to sit still: 1 = Several days Becoming easily annoyed or irritable: 1 = Several days Feeling afraid as if something awful might happen: 1 = Several days Total SARTHAK-7 score (0-4 normal; 5-9 mild; 10-14 moderate; 15-21 severe): 13 Source: Developed by Drs. Efraín Azevedo, Jordana Lyles, Hal Guzman and colleagues, with an educational jared from [employer]. SARTHAK-7 Assessment Billing SARTHAK-7 Assessment Tool: SARTHAK-7 Assessment 89686 Review of Systems Const All systems reviewed & are unremarkable except as noted in HPI and below Card Denies chest pain at rest, Denies chest pain with activity, Denies edema, Denies irregular heart rhythm, Denies claudication, Denies dyspnea, Denies dyspnea on exertion, Denies orthopnea, Denies paroxysmal nocturnal dyspnea and Denies slow heart rate Resp Denies cough, Denies dyspnea and Denies dyspnea on exertion GI Denies abdominal pain, Denies change in bowel habits, Denies excessive flatus, Denies nausea and Denies vomiting Physical exam (Primary Care) Vital Signs: Last Vital Signs BP 112/70 07/14/24 12:56 BMI result Body Mass Index 29.5 Tobacco/Smoking Status: Tobacco use Status Tobacco use date assessed 07/14/24 07/14/24 13:05 Patient Tobacco Use Status Former Tobacco user 07/14/24 13:05 Tobacco use type Cigarette 07/14/24 13:05 e-Cigarette/Vaping Use Never Used 07/14/24 13:05 PHQ-9: PHQ-9 Score PHQ-9: Total score 8 07/14/24 13:11 Depression Screening Interpretation: Positive Depression Screening Follow-up: Existing condition and Follow-up Visit Requested Thrive Assessment: Date of Thrive Assessment Date Thrive assessed 07/14/24 07/14/24 13:05 Currently or been in a relationship where the following occur: No concerns reported HENMT Head: Yes normal to inspection, Yes normocephalic and Yes atraumatic Ears: external ears normal Eyes General: appearance normal, both eyes and all related structures Eyelids: Yes eyelids normal Conjunctivae: conjunctivae normal Neck Neck: Yes normal visual inspection and Yes supple Resp Effort & Inspection: normal respiratory effort Auscultation: clear to auscultation bilaterally Cardio Jugular venous distension: no JVD Rate: regular rate Rhythm: regular rhythm Heart sounds: S1 normal heart sound present and S2 normal heart sound present GI Inspection: Yes normal to inspection Palpation (GI): Soft to palpation and nontender Auscultation: normal bowel sounds Skin General skin exam: no rashes or lesions noted Neuro General: no focal motor deficits Extrem General: Yes full ROM Psych Appearance: grossly normal Coding Level of Care Code Est Pt Level 3 (31176) Est Pt Prev Care 18-39y(07902) Diagnoses Physical exam Z00.00 Crohn's disease K50.90 SARTHAK (generalized anxiety disorder) F41.1 Additional Codes SARTHAK-7 Assessment Billing - SARTHAK-7 Assessment Tool: SARTHAK-7 Assessment 82974 ([id number]) PHQ-9 - 91312 - PHQ-9 Billing: Yes ([id number]) Time Spent (min) 32 Assessment & Plan Assessment & Plan (1) Physical exam: Code(s): Z00.00 - Encounter for general adult medical examination without abnormal findings Category: Medical (2) Crohn's disease: Code(s): K50.90 - Crohn's disease, unspecified, without complications Category: Medical (3) SARTHAK (generalized anxiety disorder): Code(s): F41.1 - Generalized anxiety disorder Category: Medical Plan - Continue current management of Crohn's disease with Entyvio infusions and monitor for any exacerbation of symptoms. - Consider potential selective serotonin reuptake inhibitors SSRIs) for management of PMDD based on prior discussion, although the patient prefers non-pharmaceutical approaches. - Suggest exploring [id number] counseling for better therapeutic connection. - Recommend home exercises and dietary adjustments to address weight management and anxiety-related eating. - Ensure continued compliance with vitamin D supplementation. - Monitor depressive symptoms and explore potential lifestyle interventions for anxiety alleviation. Patient was informed and verbally consented to the use of an ambient scribe for clinic note documentation during this visit. I discussed with the patient the current management plan for her Crohn's disease, noting her improvement with prednisone and the regular Entyvio infusions. We reviewed the complications of PMDD and potential pharmaceutical options like SSRIs, though the patient expressed preference for non-medication therapies. We explored the importance of finding an engaging counselor for her therapy needs. Dietary modifications and exercise as home interventions to control weight and anxiety-induced eating were discussed. Vitamin supplementation was reaffirmed. We agreed on the importance of continued monitoring and follow-ups, focusing on overall health maintenance and mental health support. Orders: Orders Vitamin D 25-OH Total Today E55.9 - Vitamin D deficiency, unspecified Vitamin B12 and Folate Today E53.8 - Deficiency of other specified B group vitamins Lipid Panel Today E78.5 - Hyperlipidemia, unspecified Comprehensive [place]. Panel Fast Today K50.90 - Crohn's disease, unspecified, without complications Patient Instructions: - Continue with Entyvio infusions every two months as scheduled. - Maintain vitamin D supplement as prescribed. - Explore therapy options that allow for a personal connection with the counselor. - Use YouTube exercise videos for home-based workouts. - Implement dietary changes focused on balanced meals and portion control. - Monitor for any changes in mood or anxiety, particularly around the menstrual cycle, and consider revisiting medication options if symptoms persist or worsen.
--- OUTSIDE RECORDS SUMMARY | 2024-07-14 13:01 | XMS_ITS | Encounter Summary ---
Author Organization [facility] Address [address] [place] [phone] Phone Care Team Providers Care Winemaker Name Role Phone Kathy Perez MD Primary Care Provider [phone] Encounter Details Date Type Department Care Team (Late st Contact Info) Description 02/04/2012 Documentation EM Family Medicine [address] [place] [address] Family Medicine, Physician [address] [place], [place] [phone] Social History Tobacco Use Types Packs/Day Years Used Date Smoking Tobacco: Never Assessed Comments Unknown Sex and Gender Information Value Date Recorded Sex Assigned at Not on file Legal Sex Female 3:13 PM EDT Gender Identity Not on file Sexual Orientation Not on file documented as of this encounter Plan of Treatment Not on file documented as of this encounter Visit Diagnoses Not on filedocumented in this encounter Care Teams Winemaker Relationship Specialty Start Date End Date Kathy Perez MD [address] [place] [address] [place] [id number] PCP - General 01/03/17 08/13/22 documented as of this encounter
--- OUTSIDE RECORDS SUMMARY | 2024-07-14 13:01 | XMS_ITS | Clinical Summary ---
Author Organization [facility] Address [address] [place] [phone] Phone Care Team Providers Care Ui Programmer Name Role Phone Unavailable Primary Care Provider Unavailabl e Immunizations Immunization Administration Dates Next Due Hep B, ped/adol 02/14/1998 MMR 04/26/1999 Td (adult) (Tenivac), 5 Lf tetanus toxoid, PF, a dsorbed 04/26/1999 Social History Tobacco Use Types Packs/Day Years Used Date Smoking Tobacco: Never Assessed Comments Unknown Sex and Gender Information Value Date Recorded Sex Assigned at Not on file Legal Sex Female 3:13 PM EDT Gender Identity Not on file Sexual Orientation Not on file Plan of Treatment Health Maintenance Due Date Last Done Comments Hepatitis B Vaccines (2 of 3 - 3-dose series) 03/14/1998 02/14/1998 DTaP,Tdap,and Td Vaccines (2 - Tdap) 04/27/1999 04/26/1999 Varicella Vaccines (1 of 2 - 13+ 2-dose series) 08/12/2000 Influenza Vaccines (#1) 2023 COVID-19 Vaccine (1 - 2023-2 5 season) 2024 MMR Vaccines Completed 04/26/1999 HIB Vaccines Aged Out No longer eligi ble based on patient's age to complete this topic HPV Vaccines Aged Out No longer eligi ble based on patient's age to complete this topic Hepatitis A Vaccines Aged Out No long er eligible based on patient's age to complete this topic IPV Vaccines Aged Out No longer eligi ble based on patient's age to complete this topic Men B Vaccine Aged Out No longer elig ible based on patient's age to complete this topic Meningococcal Vaccine Aged Out No matilda rosina eligible based on patient's age to complete this topic Pneumococcal Vaccine Aged Out No long er eligible based on patient's age to complete this topic
== END 2024-07-14 13:56 | disposition home or self-care (01) ==
PROVIDERS: PCP Internal Medicine; Visit Provider Internal Medicine
DX: Z00.00 Encounter for general adult medical examination without abnormal findings (principal); K50.90 Crohn's disease, unspecified, without complications; F41.1 Generalized anxiety disorder

== ENCOUNTER → 2024-07-14 12:46 | Outpatient (BNVA) | payer OTHER, SELFPAY | PROVIDERS: PCP Internal Medicine; Visit Provider Internal Medicine | DX: Z00.00 Encounter for general adult medical examination without abnormal findings (principal); K50.90 Crohn's disease, unspecified, without complications; F41.1 Generalized anxiety disorder | CPT/HCPCS: 96127; 99212; 99395 ==

== ENCOUNTER 2024-08-23 10:42 | Outpatient (REF) | payer OTHER, SELFPAY ==
[2024-08-23 10:58] LABS: MANUAL DIFF FLAG NO
[2024-08-23 11:19] LABS: Basophils Percent Auto 0.8 % (0-2); Eosinophils Absolute Auto 0.3 X10*3/uL (0.0-0.4); Eosinophils Percent Auto 5.1 % (0-4); Hematocrit 35.5 % (37.0-47.0); Hemoglobin 12.2 g/dl (12.0-16.0); Imm Gran Abs Auto 0.01 X10*3/uL (0.00-0.03); Imm Gran Pct Auto 0.2 % (0.0-0.4); Lymphocytes Absolute Auto 2.1 X10*3/uL (1.2-4.9); Lymphocytes Percent Auto 38.6 % (20-40); Mean Corpuscular HGB Conc 34.4 g/dl (31.0-35.0); Mean Corpuscular Hemoglobin 30.4 pg (27.0-33.0); Mean Corpuscular Volume 88.5 fL (80.0-98.0); Mean Platelet Volume 9.2 fL (9.4-12.3); Monocytes Absolute Auto 0.5 X10*3/uL (0.1-1.2); Monocytes Percent Auto 9.4 % (2-11); Neutrophils Absolute Auto 2.4 x10*3/uL (2.0-8.3); Neutrophils Percent Auto 45.9 % (45-73); Platelet Count 318 X10*3/uL (160-400); Red Blood Count 4.01 X10*6/uL (4.20-5.50); Red Cell Distribution Width 12.1 % (11.0-16.0); White Blood Count 5.3 X10*3/uL (4.8-10.8)
--- OUTSIDE RECORDS SUMMARY | 2024-08-23 12:03 | XMS_ITS | Encounter Summary ---
Author Organization [facility] Address [address] [place] [id number] Phone Care Team Providers Care Gatekeeper Name Role Phone Kathy Perez MD Primary Care Provider [phone] Encounter Details Date Type Department Care Team (Late st Contact Info) Description 02/04/2012 Documentation EM Family Medicine [address] [place] [address] Family Medicine, Physician [address] [place], [place] [phone] Social History Tobacco Use Types Packs/Day Years [...] on filedocumented in this encounter Care Teams Gatekeeper Relationship Specialty Start Date End Date Kathy Perez MD [address] [place] [address] [place] [address] PCP - General 01/03/17 08/13/22 documented as of this encounter
--- OUTSIDE RECORDS SUMMARY | 2024-08-23 12:03 | XMS_ITS | Clinical Summary ---
Author Organization [facility] Address [address] [place] [phone] Phone Care Team Providers Care Negative Checker Name Role Phone Unavailable Primary Care Provider [...]
[2024-08-23 12:07] LABS: Alanine Aminotransferase 17 U/L (0-31); Albumin Level 4.2 g/dL (3.5-5.0); Alkaline Phosphatase 62 U/L (39-117); Anion Gap 9 (12-20); Aspartate Amino Transferase 23 U/L (5-31); Bilirubin Total 0.4 mg/dL (0.0-1.0); Blood Urea Nitrogen 8 mg/dL (9-16); C Reactive Protein < 0.04 mg/dL (< or = 0.50); Carbon Dioxide 26 mmol/L (22-29); Chloride 109 mmol/L (96-108); Cholesterol 165 mg/dL (<200); Estimated Glomerular Filt Rate > 60; Glucose Fasting 93 mg/dL (60-99); Glucose Random 93 mg/dL (60-115); HDL Cholesterol 53 mg/dL (>40); LDL Cholesterol Calculated 88 mg/dL (<100); Potassium 4.1 mmol/L (3.3-5.1); Sodium 140 mmol/L (135-145); Total Protein 7.3 g/dL (6.5-8.0); Triglycerides 121 mg/dL (<150)
[2024-08-23 12:11] LABS: Vitamin D 25-OH Total 41.7 ng/mL (>30)
[2024-08-23 12:20] LABS: Vitamin D 25-OH Total 41.2 ng/mL (>30)
[2024-08-23 12:24] LABS: Folate 7.4 ng/mL (> or = 4.0); Vitamin B12 503 pg/mL (200-900)
== END 2024-08-23 10:43 | disposition home or self-care (01) ==
LOC: HO.LAB 10:42
PROVIDERS: Internal Medicine; PCP Internal Medicine; Visit Provider Internal Medicine
DX: K50.90 Crohn's disease, unspecified, without complications (principal); E78.5 Hyperlipidemia, unspecified; E55.9 Vitamin D deficiency, unspecified; E53.8 Deficiency of other specified B group vitamins
CPT/HCPCS: 36415; 80053; 80061; 80280; 82306; 82607; 82746; 83520; 85025; 85027; 86140

== ENCOUNTER 2024-08-31 14:05 | Outpatient (REF) | payer OTHER, SELFPAY ==
--- OUTSIDE RECORDS SUMMARY | 2024-08-31 17:48 | XMS_ITS | Encounter Summary ---
Author Organization [facility] Address [address] [place] [address] Phone Care Team Providers Care Audiovisual Technician Name Role Phone Kathy Perez MD Primary Care Provider [phone] Encounter Details Date Type Department Care Team (Late st Contact Info) Description 02/04/2012 Documentation EM Family Medicine [address] [place] [address] Family Medicine, Physician [address] [place], [place] [phone] Social History Tobacco Use Types Packs/Day Years [...] on filedocumented in this encounter Care Teams Audiovisual Technician Relationship Specialty Start Date End Date Kathy Perez MD [address] [place] [address] [place] [address] PCP - General 01/03/17 08/13/22 documented as of this encounter
--- OUTSIDE RECORDS SUMMARY | 2024-08-31 17:48 | XMS_ITS | Clinical Summary ---
Author Organization [facility] Address [address] [place] [address] Phone Care Team Providers Care Engraver Hand Soft Metals Name Role Phone Unavailable Primary Care Provider [...]
[2024-09-01 08:59] LABS: Bacterial Vaginosis PCR NEGATIVE (Negative); Candida Group PCR NOT DETECTED (Not Detect); Candida glab krusei PCR NOT DETECTED (Not Detect); Trichomonas vaginalis PCR NOT DETECTED (Not Detect)
[2024-09-06 14:45] LABS: HPV Genotype 16 Negative (Negative); HPV Genotype 18 Negative (Negative); HPV High Risk Positive (Negative)
== END 2024-08-31 14:06 | disposition home or self-care (01) ==
LOC: HO.LNP 14:05
PROVIDERS: PCP Internal Medicine; Visit Provider Advanced Practice Midwife
DX: Z01.419 Encounter for gynecological examination (general) (routine) without abnormal findings (principal); Z87.42 Personal history of other diseases of the female genital tract; R87.612 Low grade squamous intraepithelial lesion on cytologic smear of cervix (LGSIL); N89.8 Other specified noninflammatory disorders of vagina
CPT/HCPCS: 81515; 87626; 88175; 99212; 99395; 99459

== ENCOUNTER 2024-08-31 14:05 | Outpatient (AMB) | payer OTHER, SELFPAY ==
--- NOTE | 2024-08-31 14:08 | MHC.OFFVIS ---
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 Doing well with social service assistant concerns: premenstrual depression for years, has suicidal thoughts only during this time, no plan of action, no weapons in the home. Onset up her symptoms are 2 weeks before her cycle, until 3 days into her menstrual cycle. Denies any history of bipolar disorder. History of anxiety and has used medications in the past, did not like the side effects or they did not work. She prefers not to take any medicine at all. Has a therapist currently. Working overnights. Regular monthly menses. History of BLTL. Currently is not sexually active. Admits to discharge, denies vaginal itching and irritation. STI screening offered; she declines GC and chlamydia. She tries to eat healthy, no regular exercise. Denies family history of breast, ovarian or colon cancer. Last pap smear LGSIL, positive HPV and on colposcopy 10/2023. Hx. LEEP. PFSH Medical History PMDD (premenstrual dysphoric disorder) Well woman exam with routine gynecological exam RSV (acute bronchiolitis due to respiratory syncytial virus) Viral syndrome Migraine Asthma Memory loss Physical exam Central abdominal pain Upper respiratory tract infection Sterilization Vaginal discharge Anxiety Preop cardiovascular exam Fungal dermatitis Pre-op evaluation Depot contraception Surgical History H/O tubal ligation H/O colonoscopy Hx of abdominal surgery History of loop electrical excision procedure (LEEP) Family History Mother History of hypertension Hx of diabetes mellitus History of high cholesterol Father Murder Daughter In good health Daughter In good health Sister No problems noted. Brother No problems noted. Sister No problems noted. Sister No problems noted. 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 Current occupational exposures/hazards: No Gender identity: Female Cognitive needs: No Hearing needs: No Vision needs: Yes Female Reproductive History Menstrual Age of Menarche: 15 Duration of menses: 6-7 days Date of last menstrual period: 08/07/24 control method: permanent sterilization Permanent Sterilization: BTL Total pregnancies: 3 Full term: 3 Number of Living Children: 3 Date of last pap smear: 08/26/23 (lgsil +hpv 11/16 colpo day[place] 1) History of abnormal pap smear: Yes (04/28 lgsil 12/29 hgsil 04/30 colpo [place] 2 07/02 leep dayton 1-2) Review of Systems Const All systems reviewed & are unremarkable except as noted in HPI and below Reports as per HPI Eyes Reports no additional complaints ENT Reports no additional complaints Card Reports no additional complaints Resp Reports no additional complaints GI Reports as per HPI and Reports no additional complaints Reports as per HPI Musc Reports no additional complaints Skin/Breast Reports as per HPI Neuro Reports no additional complaints Psych Reports no additional complaints Endo Reports no additional complaints Isidro/Lymph Reports no additional complaints Aller/Immun Reports no additional complaints Physical Exam Vital Signs: Last Vital Signs BP 120/80 08/31/24 14:09 BMI result Body Mass Index 29.4 Const General: cooperative, healthy appearing, no acute distress, well developed and alert Orientation/consciousness: patient oriented x3 HEENT Head: Yes normal to inspection Eyes General: appearance normal, both eyes and all related structures Neck Neck: Yes normal visual inspection Thyroid: Thyroid normal Chest Chest palpation & inspection: normal inspection of the chest and other (no puckering, dimpling, peau de orange, retraction, discharge, masses) Breast/axilla inspection: normal inspection of the breasts Breast/axilla palpation: normal palpation of the breasts Resp Effort & Inspection: normal respiratory effort GI Inspection: Yes normal to inspection Palpation (GI): Soft to palpation Rectal Exam - Female: deferred General: Yes bladder normal to palpation External Female Exam: normal external appearance and normal appearance of the urethra Speculum Exam - Vagina: normal appearance of the vagina, normal palpation and normal vaginal discharge Speculum Exam - Cervix: normal appearance of the cervix, normal palpation and Other cervical findings present (Post LEEP appearance, bled with Pap) Bimanual exam- vagina & uterus: normal bimanual exam, normal palpation, uterine size normal, bladder normal to palpation, normal palpation and non-tender Bimanual Exam- Adnexa, other: no masses Skin General skin exam: no rashes or lesions noted Rashes: no rashes Neuro General: patient oriented x3 Cognition (Neuro): normal cognition Extrem General: Yes normal to inspection Psych Attitude: cooperative Thought process: Normal thought process present Assessment & Plan Assessment & Plan (1) Well woman exam with routine gynecological exam: Code(s): Z01.419 - Encounter for gynecological examination (general) (routine) without abnormal findings Category: Medical Plan: Discussed: Current recommendations for pap smears per ASCCP guidelines. Breast awareness and periodic breast exams. Maintain a healthy lifestyle including a well balanced diet and routine exercise. Use condoms for STI prevention. Patient verbalizes understanding and agrees to the plan of care. She was given opportunity to ask questions and all questions were answered to the best of my ability. RTO in one year for annual social service assistant examination. This note is constructed using voice recognition software. While every effort has been made to ensure accuracy, nutrition services aide errors may have been included. (2) PMDD (premenstrual dysphoric disorder): Code(s): F32.81 - Premenstrual dysphoric disorder Category: Medical Plan: Total time I personally spent on visit and management today: ?30 minutes. Time spent included review of pertinent office notes in the electronic health record; review of laboratory and imaging results; review of personal family medical history; performing physical exam; discussing diagnosis and plan of care with the patient; documenting the encounter in the EMR. Plan PMDD plan of care: Counseled regarding healthy lifestyle, well-balanced healthy diet, adequate hydration, sleep hygiene, mental health counseling, self care and stress reduction techniques. Initiate luteal phase therapy with Prozac 10 mg day 14 of cycle through day 3 of menses. We will need to call the office and check in as we do not have a date of her cycle yet to determine follow up timeframe. Counseled regarding side effects, risks benefits and warning signs of SSRIs including suicidal ideation. Advised to report if she has any harmful thoughts/plans that she would need to go to the emergency room immediately for care. Dose will be tapered depending on how she responds. The patient expressed understanding and agreement with the plan of care. All of her questions and concerns were addressed to the best of my ability. She is agreeable to call the office to do a tele visit for medication evaluation. Rx sent to the pharmacy. Instructions were reviewed and repeated for clarity and understanding. This note is constructed using voice recognition software. While every effort has been made to ensure accuracy, nutrition services aide errors may have been included. Orders: Orders Pap Smear 08/31/24 R87.612 - Low grade squamous intraepithelial lesion on cytologic smear of cervix (LGSIL), Z01.419 - Encounter for gynecological examination (general) (routine) without abnormal findings, Z87.42 - Personal history of other diseases of the female genital tract Bacterial Vaginosis Panel 08/31/24 N89.8 - Other specified noninflammatory disorders of vagina HPV High risk Today R87.612 - Low grade squamous intraepithelial lesion on cytologic smear of cervix (LGSIL), Z01.419 - Encounter for gynecological examination (general) (routine) without abnormal findings, Z87.42 - Personal history of other diseases of the female genital tract Coding Level of Care Code Est Pt Level 3 (27789) Est Pt Prev Care 18-39y(37838) Diagnoses Well woman exam with routine gynecological exam Z01.419 PMDD (premenstrual dysphoric disorder) F32.81
[2024-08-31 14:09] VITALS: BP 120/80; BMI 29.4
--- OUTSIDE RECORDS SUMMARY | 2024-08-31 17:13 | XMS_ITS | Encounter Summary ---
Author Organization [facility] Address [address] [place] [address] Phone Care Team Providers Care Copy Lathe Tender Name Role Phone Kathy Perez MD Primary Care Provider [phone] Encounter Details Date Type Department Care Team (Late st Contact Info) Description 02/04/2012 Documentation EM Family Medicine [address] [place] [address] Family Medicine, Physician [address] [place], [place] [phone] Social History Tobacco Use Types Packs/Day Years [...] on filedocumented in this encounter Care Teams Copy Lathe Tender Relationship Specialty Start Date End Date Kathy Perez MD [address] [place] [address] [place] [address] PCP - General 01/03/17 08/13/22 documented as of this encounter
--- OUTSIDE RECORDS SUMMARY | 2024-08-31 17:13 | XMS_ITS | Clinical Summary ---
Author Organization [facility] Address [address] [place] [address] Phone Care Team Providers Care Ribbon Lap Machine Tender Name Role Phone Unavailable Primary Care Provider [...]
== END 2024-08-31 15:09 | disposition home or self-care (01) ==
LOC: HO.HWS 14:05
PROVIDERS: PCP Internal Medicine; Visit Provider Advanced Practice Midwife
DX: Z01.419 Encounter for gynecological examination (general) (routine) without abnormal findings (principal); F32.81 Premenstrual dysphoric disorder
CPT/HCPCS: 99213; 99395; 99459

== ENCOUNTER 2024-08-31 14:40 | Outpatient (REF) | payer OTHER, SELFPAY | END 2024-08-31 14:41 | disposition home or self-care (01) | LOC: HO.LAB 14:40 | PROVIDERS: Visit Provider Advanced Practice Midwife | DX: Z13.89 Encounter for screening for other disorder (principal) ==

== ENCOUNTER 2024-10-13 11:07 | Outpatient (AMB) | payer OTHER, SELFPAY ==
--- NOTE | 2024-10-13 11:18 | A.OFFVIS_ITS ---
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: No Information Interpreted: non-clinical & clinical Improvement Auditor: Improvement Auditor Present (Destiny SANTOS) Accompanied by: Self / Same As Patient Allergies No Known Allergies [No Known Allergies*] Allergy (Verified 10/13/24 11:24) HPI Comments Details: Presenting for abnormal Pap smear showing LGSIL HPV high-risk positive, HPV 16/18 negative PFSH Medical History Dysplasia of cervix, low grade (LAZARUS 1) PMDD (premenstrual dysphoric disorder) Well woman exam with routine gynecological exam RSV (acute bronchiolitis due to respiratory syncytial virus) Viral syndrome Migraine Asthma Memory loss Physical exam Central abdominal pain Upper respiratory tract infection Sterilization Vaginal discharge Anxiety Preop cardiovascular exam Fungal dermatitis Pre-op evaluation Depot contraception Surgical History H/O tubal ligation H/O colonoscopy Hx of abdominal surgery History of loop electrical excision procedure (LEEP) Family History Mother History of hypertension Hx of diabetes mellitus History of high cholesterol Father Murder Daughter In good health Daughter In good health Sister No problems noted. Brother No problems noted. Sister No problems noted. Sister No problems noted. 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 Current occupational exposures/hazards: No Gender identity: Female Cognitive needs: No Hearing needs: No Vision needs: Yes Female Reproductive History Menstrual Age of Menarche: 15 Review of Systems Const All systems reviewed & are unremarkable except as noted in HPI and below Reports as per HPI and Reports no additional complaints GI Reports no additional complaints Reports no additional complaints Physical Exam Vital Signs: BMI result Body Mass Index 29.4 Office Procedures Colposcopy Colposcopy: Pre-Procedure Counseling: Before beginning the procedure, I conducted comprehensive counseling with the patient. We thoroughly discussed the procedure itself, including its details, alternatives, and all associated risks. This included but not limited to the following complications such as bleeding, infection, and injury to the vagina, bladder, and vessels, as well as the potential need for transfusion with all its associated risks. Subsequently, the patient sign the consent. Pap smear result: LSIL/HPV high-risk positive, HPV 16/18 negative. Urine test in office = Negative Procedure: During the procedure, the following steps were performed: A speculum was inserted, and acetic acid was applied. Colposcopy was conducted, allowing visualization of the transformation zone. Acetowhite lesions were identified at the 7+ 5+ 3 +11+ 12+ 1 o'clock position. Cervical biopsies were obtained from the 7+ 5+ 3 +11+ 12+ 1 o'clock position, followed by an endocervical curettage (ECC). Vaginoscopy of the upper vagina revealed no evidence of aceto-white lesions. Hemostasis was achieved using Monsel solution, and the patient tolerated the procedure well. Post-Procedure Instructions: The patient was advised to promptly contact the office or the after hours answering service or go to the emergency room if experiencing a temperature exceeding 100.4?F, abdominal pain, nausea/vomiting, or bleeding. Additionally, the patient was instructed to abstain from vaginal intercourse and bathtub use. The patient confirmed understanding of these instructions. Discharge Instructions: The patient was instructed to schedule a follow-up appointment in 2 weeks for further evaluation and management. Please note that this note was generated using a voice recognition program, and errors may have occurred during director of hospitality. [id number] of cervix including upper vagina with biopsy and ECC Procedure code (CPT) selection complete Results AMB Test Urine AMB Test Urine Negative Last Edit by Destiny Crabtree CMA on 11:25 Results Reviewed Results Reviewed: Laboratory Last Values [facility] Negative 10/13/24 11:25 Assessment & Plan Assessment & Plan (1) LGSIL on Pap smear of cervix: Comment: HPV E6/E7 positive, HPV 16/18 negative Code(s): R87.612 - Low grade squamous intraepithelial lesion on cytologic smear of cervix (LGSIL) Category: Medical Plan: Discussed with the patient the result of her abnormal pap, its significance, risk of progression, persistence, and regression. the false positive/negative rate of a Pap smear as a screening test in detecting cervical cancer and the indication for a diagnostic test -colposcopy, biopsy, endocervical curettage. The patient verbalized understanding and agreed with the plan, all questions answered. Colpo biopsy ECC done, see procedure note Orders: Orders AMB Colposcopy Today R87.612 - Low grade squamous intraepithelial lesion on cytologic smear of cervix (LGSIL) AMB HCG Urine Test Today Z32.02 - Encounter for test, result negative Coding Level of Care Code Procedure Only Diagnoses LGSIL on Pap smear of cervix R87.612 CPT Codes Colposcopy - CPT: 63048-[id number] of cervix including upper vagina with biopsy and ECC ([id number])
[2024-10-13 11:23] VITALS: BP 112/78; BMI 29.4
--- OUTSIDE RECORDS SUMMARY | 2024-10-13 12:27 | XMS_ITS | Encounter Summary ---
Author Organization [facility] Address [address] [place] [address] Phone Care Team Providers Care Ice Cream Freezer Name Role Phone Kathy Perez MD Primary Care Provider [phone] Encounter Details Date Type Department Care Team (Late st Contact Info) Description 02/04/2012 Documentation EM Family Medicine [address] [place] [address] Family Medicine, Physician [address] [place], [place] [phone] Social History Tobacco Use Types Packs/Day Years [...] on filedocumented in this encounter Care Teams Ice Cream Freezer Relationship Specialty Start Date End Date Kathy Perez MD [address] [place] [address] [place] [address] PCP - General 01/03/17 08/13/22 documented as of this encounter
--- OUTSIDE RECORDS SUMMARY | 2024-10-13 12:27 | XMS_ITS | Clinical Summary ---
Author Organization [facility] Address [address] [place] [address] Phone Care Team Providers Care Undercover Agent Name Role Phone Unavailable Primary Care Provider [...]
== END 2024-10-13 11:51 | disposition home or self-care (01) ==
LOC: HO.HWS 11:07
PROVIDERS: PCP Internal Medicine; Visit Provider Obstetrics & Gynecology
DX: R87.612 Low grade squamous intraepithelial lesion on cytologic smear of cervix (LGSIL) (principal); Z32.02 Encounter for pregnancy test, result negative
CPT/HCPCS: 57454

== ENCOUNTER 2024-10-13 11:07 | Outpatient (REF) | payer OTHER, SELFPAY ==
--- OUTSIDE RECORDS SUMMARY | 2024-10-13 14:39 | XMS_ITS | Clinical Summary ---
Author Organization [facility] Address [address] [place] [address] Phone Care Team Providers Care Cco & President Name Role Phone Unavailable Primary Care Provider [...]
--- OUTSIDE RECORDS SUMMARY | 2024-10-13 14:39 | XMS_ITS | Encounter Summary ---
Author Organization [facility] Address [address] [place] [address] Phone Care Team Providers Care Work Manager Name Role Phone Kathy Perez MD Primary Care Provider Encounter Details Date Type Department Care Team (Late st Contact Info) Description 02/04/2012 Documentation EM Family Medicine [address] [place] [address] Family Medicine, Physician [address] [place], [place] [phone] Social History Tobacco Use Types Packs/Day Years [...] on filedocumented in this encounter Care Teams Work Manager Relationship Specialty Start Date End Date Kathy Perez MD [address] [place] [address] [place] [address] PCP - General 01/03/17 08/13/22 documented as of this encounter
== END 2024-10-13 11:08 | disposition home or self-care (01) ==
LOC: HO.LNP 11:07
PROVIDERS: PCP Internal Medicine; Visit Provider Obstetrics & Gynecology
DX: R87.612 Low grade squamous intraepithelial lesion on cytologic smear of cervix (LGSIL) (principal); Z32.02 Encounter for pregnancy test, result negative
CPT/HCPCS: 57454; 81025; 88305

== ENCOUNTER 2024-10-19 14:05 | Outpatient (REF) | payer OTHER, SELFPAY ==
--- OUTSIDE RECORDS SUMMARY | 2024-10-19 14:19 | XMS_ITS | Clinical Summary ---
Author Organization [facility] Address [address] [place] [address] Phone Care Team Providers Care Retail Salesperson Name Role Phone Unavailable Primary Care Provider [...]
[2024-10-19 15:20] LABS: C Reactive Protein < 0.10 mg/dL (< or = 0.50)
== END 2024-10-19 14:06 | disposition home or self-care (01) ==
LOC: HO.LAB 14:05
PROVIDERS: PCP Internal Medicine; Visit Provider Internal Medicine
DX: K50.90 Crohn's disease, unspecified, without complications (principal)
CPT/HCPCS: 36415; 86140

== ENCOUNTER 2024-10-21 12:49 | Outpatient (REF) | payer OTHER, SELFPAY ==
--- OUTSIDE RECORDS SUMMARY | 2024-10-21 12:54 | XMS_ITS | Clinical Summary ---
Author Organization [facility] Address [address] [place] [phone] Phone Care Team Providers Care Ux Research Associate Name Role Phone Unavailable Primary Care Provider [...]
[2024-10-21 14:12] LABS: CDiff Gene PCR POSITIVE (Negative)
[2024-10-21 14:45] LABS: Adenovirus F 40/41 Not Detected (Not Detect.); Astrovirus Not Detected (Not Detect.); Campylobacter Not Detected (Not Detect.); Cryptosporidium Not Detected (Not Detect.); Cyclospora cayetanensis Not Detected (Not Detect.); E. coli EAEC Not Detected (Not Detect.); E. coli EPEC Not Detected (Not Detect.); E. coli ETEC Not Detected (Not Detect.); E. coli STEC Not Detected (Not Detect.); Entamoeba histolytica Not Detected (Not Detect.); Giardia lamblia Not Detected (Not Detect.); Norovirus GI/GII Not Detected (Not Detect.); Plesiomonas shigelloides Not Detected (Not Detect.); Rotavirus A Not Detected (Not Detect.); Salmonella Not Detected (Not Detect.); Sapovirus Not Detected (Not Detect.); Shigella sp./EIEC Not Detected (Not Detect.); Vibrio Not Detected (Not Detect.); Vibrio Cholerae Not Detected (Not Detect.); Yersinia enterocolitica Not Detected (Not Detect.)
[2024-10-21 15:02] LABS: CDiff Toxin Negative (Negative)
[2024-10-21 15:03] LABS: CDIFF Internal ctrl Dots and bkg OK (V)
[2024-10-27 19:22] LABS: Calprotectin, Fecal 45 mcg/g
== END 2024-10-21 12:50 | disposition home or self-care (01) ==
LOC: HO.LNP 12:49
PROVIDERS: Visit Provider Internal Medicine
DX: K50.90 Crohn's disease, unspecified, without complications (principal)
CPT/HCPCS: 83993; 87324; 87493; 87507

== ENCOUNTER 2024-11-03 13:01 | Outpatient (AMB) | payer OTHER, SELFPAY ==
--- NOTE | 2024-11-03 13:01 | MHC.OFFVIS ---
Intake Visit Reasons: TV 3 weeks colpo follow up Allergies No Known Allergies [No Known Allergies*] Allergy (Verified 10/13/24 11:24) HPI Comments Details: The patient scheduled a telehealth visit post colposcopy. Doing well with no complaints. The pathology showed the following: A. Endocervix, curettage: Acute and chronic cervicitis; negative for squamous intraepithelial lesion. B. Cervix, 1 o'clock, biopsy: Acute and chronic cervicitis; negative for squamous intraepithelial lesion. C. Cervix, 3 o'clock, biopsy: Acute and chronic cervicitis with reactive epithelial changes; negative for squamous intraepithelial lesion. D. Cervix, 5 o'clock, biopsy: Acute and chronic cervicitis with reactive epithelial changes; negative for squamous intraepithelial lesion. E. Cervix, 7 o'clock, biopsy: Chronic cervicitis; negative for squamous intraepithelial lesion. F. Cervix, 11 o'clock, biopsy: Acute and chronic cervicitis; negative for squamous intraepithelial lesion. G. Cervix, 12 o'clock, biopsy: Low-grade squamous intraepithelial lesion (LAZARUS I). COMMENT: The atypical cells noted on the patient's recent Pap smear ([id number]; LSIL) correlates with the current biopsy findings PFSH Medical History Dysplasia of cervix, low grade (LAZARUS 1) PMDD (premenstrual dysphoric disorder) Well woman exam with routine gynecological exam RSV (acute bronchiolitis due to respiratory syncytial virus) Viral syndrome Migraine Asthma Memory loss Physical exam Central abdominal pain Upper respiratory tract infection Sterilization Vaginal discharge Anxiety Preop cardiovascular exam Fungal dermatitis Pre-op evaluation Depot contraception Surgical History H/O tubal ligation H/O colonoscopy Hx of abdominal surgery History of loop electrical excision procedure (LEEP) Family History Mother History of hypertension Hx of diabetes mellitus History of high cholesterol Father Murder Daughter In good health Daughter In good health Sister No problems noted. Brother No problems noted. Sister No problems noted. Sister No problems noted. 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 Current occupational exposures/hazards: No Gender identity: Female Cognitive needs: No Hearing needs: No Vision needs: Yes Female Reproductive History Menstrual Age of Menarche: 15 Review of Systems Const All systems reviewed & are unremarkable except as noted in HPI and below Reports as per HPI and Reports no additional complaints GI Reports no additional complaints Reports no additional complaints Telehealth Telehealth Telehealth Platform: Telephone Location of provider rendering services: practice address Location of patient: address on file Patient Identification confirmed using: Name, : Yes Telehealth method: video Patient verbally consented to treatment: Yes Patient verbally consented to billing insurance company: Yes Patient informed of any privacy concerns related to visit: Yes Assessment & Plan Assessment & Plan (1) Dysplasia of cervix, low grade (LAZARUS 1): Comment: 10/13 co testing negative 09/16 LGSIL HPV high-risk positive HPV 16/18 negative, colpo biopsy ECC LAZARUS 1 09/17 LGSIL HPV high-risk positive, HPV 16/18 negative, colpo biopsy ECC LAZAURS 1 Code(s): N87.0 - Mild cervical dysplasia Category: Medical Plan: Discussed with the patient the pathology results of the colposcopy biopsies & endocervical curettage ( mild dysplasia-LAZARUS 1). Discussed with the patient the sensitivity specificity, positive and negative predictive value in detecting cervical cancer in addition discussed the regression, persistence and progression rates. Recommended co-testing in 12 months, if cytology and or HPV are abnormal will proceed was colposcopy biopsy and endocervical curettage, if lesions gets worse or stays persistent for 2 years will proceed with loop electric excision procedure. Instructions given to the patient to schedule a co test appointment in 1 year. All questions answered the patient verbalized understanding. I spent a total of 20 minutes reviewing the chart, talking to the patient via video and documenting in the medical record. Coding Level of Care Code Tele Est Pt Level 3 (62310) Diagnoses Dysplasia of cervix, low grade (LAZARUS 1) N87.0
--- OUTSIDE RECORDS SUMMARY | 2024-11-03 14:35 | XMS_ITS | Clinical Summary ---
Author Organization [facility] Address [address] [place] [id number] Phone Care Team Providers Care Railroad Brake Repairer Name Role Phone Unavailable Primary Care Provider [...]
== END 2024-11-03 13:39 | disposition home or self-care (01) ==
LOC: HO.HWS 13:01
PROVIDERS: PCP Internal Medicine; Visit Provider Obstetrics & Gynecology
DX: N87.0 Mild cervical dysplasia (principal)
CPT/HCPCS: 99213

== ENCOUNTER → 2024-11-03 13:01 | Outpatient (BNVA) | payer OTHER, SELFPAY | PROVIDERS: PCP Internal Medicine; Visit Provider Obstetrics & Gynecology ==

== ENCOUNTER 2024-11-30 10:35 | Outpatient (AMB) | payer OTHER, SELFPAY ==
--- NOTE | 2024-11-30 10:45 | A.OFFVIS_ITS ---
Vital Signs 11/30/24 10:46 Height 5 ft 6 in Weight 180 lb 12.465 oz BMI 29.2 BP 131/78 Blood Pressure Location Lt brachial Position Sitting Pulse 78 Intake Visit Reasons: 4-6 wk Cdiff, ulcerative colitis ok per que Intake Note: Radha presents in the office as a follow up for UC. CC: She states that she is feeling okay and not having any concerns! Comb Machine Operator Required: No Allergies No Known Allergies (No Known Allergies*) Allergy (Verified 11/30/24 10:45) HPI Comments Details: This is a 36-year-old female who is presenting for follow up: Initial visit 03/11/22: Patient states that for the past 3 months, she has been experiencing abdominal pain associated with loose watery diarrhea. Describes abdominal pain as sharp shooting present in the middle of her abdomen that gets worse when she has to pass a bowel movement. Her bowel movements are loose and watery at least 2 to 3 times a day. No nighttime symptoms. Has seen occasional blood on wiping. Also endorses some degree of tenesmus. Has experienced at least 2-3 lb weight loss in the last 2 months. She thinks the pain sometimes gets triggered with fatty food, and has been avoiding it for the past 1-2 weeks with some response. Therapy so far includes Bentyl and basement supplement with modest improvement. No new medications in the last 6 months. No recent travel or changes in water supply. No sick contacts. Was seen at [facility] as well as her primary care for the similar complaints. Celiac serology with IgG negative, infectious panel negative. C diff and Giardia not checked. Labs: Fecal calpro 330, CRP 0.03 Colonoscopy 04/11/22: Mucosa: Erythema congestion and erosions were noted in the rectum with sharp dem arcation at 20 cm. Patchy erythema and erosions were noted in the cecum. Superficial ulcerations noted in terminal ileum up to 10 cm. Ascending, transverse, descending and sigmoid colon appeared normal on endoscopic exam. Cold forceps biopsies were obtained from terminal ileum, cecum, ascending, transverse, descending and sigmoid colon; and rectum. Path: A.? Terminal ileum, biopsy:? Small intestinal mucosa within normal limits. B.? Ileocecal valve, biopsy:? Ileocolonic mucosa with mild crypt disarray and prominent reactive lymphoid aggregate. C.? Cecum, biopsy:? Chronic, mildly active, colitis. D.? Colon, ascending, biopsy:? Colonic mucosa within normal limits. E.? Colon, transverse, biopsy:? Colonic mucosa within normal limits F. ? Colon, descending, biopsy:? Colonic mucosa within normal limits G.? Colon, sigmoid, biopsy? Colonic mucosa within normal limits: H.? Rectum, biopsy:? Chronic, mildly active, proctitis. 04/22/22: Started prednisone on 04/16. Reports complete resolution of abdominal pain and diarrhea. Now has formed bowel movements every 1-2 days. Has not seen any further blood. Also denies any rashes, joint pains or visual changes. 06/17/22: Accompanied by her daughters. Reports no abdominal symptoms when she takes the medication as prescribed, however more recently, has skipped a few doses here and there, and after skipping 2 days in a row, she notices increased abdominal pain, and either diarrhea or constipation. However, once she resumes oral mesalamine, symptoms go away within 3-4 days. Took rectal supp for a few weeks only and self discontinued. Bowel movements are formed, once every day or every other day, no blood. Patient is also status post bilateral salpingectomy 05/10/22 for permanent control. 09/02/22: Currently no abd complaints. No abd pain, diarrhea, blood in stool. Labs reviewed and fecal calpro is 5 which represents excellent response to mesalamine. She does report missing dose pretty often however, at least 1-2 times/week and remembers when has return of abd cramping and urgency. 03/10/23: Reports no gastrointestinal complaints. Has been very compliant with her meds since last visit. No abd pain, diarrhea, blood in stool or urgency. Has not had to reach for meslamine enemas. Cont on PO mesalamine 2.4g/day. Labs reviewed and CRP remains undetectable. Fecal calpro pending. 10/16/23: Impression: 1. Patchy colitis and ? ileitis. No rectal involvement noted today. 2. Internal hemorrhoids Recommendations: - Likely Crohn's disease - Await path results. - Start Prednisone 40mg PO once daily x 14 days followed by a taper. - Will discuss switch in therapy - likely anti-TNF vs entyvio. Path: Diagnosis A. Terminal ileum, biopsy: Ileal mucosa with focal lamina propria hemorrhage and no specific change; no ileitis, granulomas or dysplasia. B. Colon, cecum, biopsy: Mild active colitis with minimal crypt distortion; no granulomas or dysplasia. C. Colon, ascending, biopsy: Colonic mucosa with lymphoid aggregates otherwise no specific change; no colitis, granulomas or dysplasia. D. Colon, transverse, biopsy: Colonic mucosa with focal mild active colitis and mucosal microgranulomas; negative for dysplasia. E. Colon, descending, biopsy: Chronic colitis with mild to moderate activity, crypt abscesses, and possible mucosal microgranuloma; negative for dysplasia. F. Colon, sigmoid, biopsy: Colonic mucosa with focal moderate active colitis; negative for granulomas and dysplasia. G. Colon, rectum, biopsy: Chronic colitis/proctitis with mild to moderate activity, and mucosal microgranulomas; negative for dysplasia. Comment: Appearances are compatible with chronic inflammatory bowel disease and clinical correlation is necessary 10/27/23: When pt was seen in pre-op did mention chronic diarrhea x 2 weeks ongoing despite taking the mesalamine. Based on endoscopic appearance suspicion was for active crohns and was started on pred course. Reports sx improved with the 40mg dosing - will be due for taper later this week. We had also discussed possibility of starting biologics in the post-op and pt was given hand outs on IFX, vedo and stelara. She is here to review tx options further. TSPOT and HBV neg from 06/2023 labs. 01/12/24: Here for follow up. See phone notes, getting set up for entyvio. Reports ok response to pred so far. On 10mg every other day. No abd pain. 1-2BMs per day, formed. No blood. 03/26/24: Here for follow up. Pred taper completed. Started Enytvio induction on and finished on 03/15. Has opted for s/c maintenance. First dose will be due May 10. Reports feeling much better. No diarrhea has formed BM 1-2 per day. No blood. No abd pain. 06/28/23: Here for follow up. Unfortunately S/C injections not covered by insurance. On infusions. Had some cramping on 06/04 with 2-3 loose BMs but then sx went away spontaneously and in fact pt was then constipated. Did correlate with start of menstrual period. Otherwise, doing great she says. Has not had to watch her diet as symptoms are well controlled. 11/30/24: Visit scheduled post C DIff infection. Had diarrhea x 2 weeks - thinks exposure through work. 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 Completed [employer] mid october. No abd pain, no diarrhea. Has 1 formed BM per day. Pt was also concerned about a vaginal yeast infection but turned out to have LSIL for which she follows with [facility]. For crohns, taking entyvio infusions. Coming up due for next infusion. PFSH Medical History Dysplasia of cervix, low grade (LAZARUS 1) PMDD (premenstrual dysphoric disorder) Well woman exam with routine gynecological exam RSV (acute bronchiolitis due to respiratory syncytial virus) Viral syndrome Migraine Asthma Memory loss Physical exam Central abdominal pain Upper respiratory tract infection Sterilization Vaginal discharge Anxiety Preop cardiovascular exam Fungal dermatitis Pre-op evaluation Depot contraception Surgical History H/O tubal ligation H/O colonoscopy Hx of abdominal surgery History of loop electrical excision procedure (LEEP) Family History Mother History of hypertension Hx of diabetes mellitus History of high cholesterol Father Murder Daughter In good health Daughter In good health Sister No problems noted. Brother No problems noted. Sister No problems noted. Sister No problems noted. 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 Current occupational exposures/hazards: No Gender identity: Female Cognitive needs: No Hearing needs: No Vision needs: Yes Female Reproductive History Menstrual Age of Menarche: 15 Review of Systems Const All systems reviewed & are unremarkable except as noted in HPI and below Physical Exam Vital Signs: Last Vital Signs Pulse 78 11/30/24 10:46 BP 131/78 11/30/24 10:46 BMI result Body Mass Index 29.2 No apparent distress Nonicteric Abdomen soft, nondistended Alert and oriented x3, normal gait Assessment & Plan Assessment & Plan (1) Crohn's disease: Code(s): K50.90 - Crohn's disease, unspecified, without complications Category: Medical (2) Chronic diarrhea: Code(s): K52.9 - Noninfective gastroenteritis and colitis, unspecified Category: Medical (3) Clostridioides difficile infection: Code(s): A49.8 - Other bacterial infections of unspecified site Category: Medical Plan Patient was resolution of acute diarrhea Last month. Was likely secondary to C diff, exposed at work place. Otherwise, doing well on Entyvio. She is due for therapeutic drug monitoring as well as monitoring of her nutrition status which will be ordered today. Plan: * Disease and therapy: Cont entyvio q8w Check CRP, vedo drug levels before next infusion Check LFTs and CBC * Nutrition: Check iron panel * Bone health: Check Vit D, dexa scan * Skin check: Derm referral placed. Follow up 4 months Orders: Orders C Reactive Protein 11/30/24 K50.90 - Crohn's disease, unspecified, without complications Complete Blood Count no Diff 11/30/24 K50.90 - Crohn's disease, unspecified, without complications Vitamin D 25-OH Total 11/30/24 K50.90 - Crohn's disease, unspecified, without complications XR DEXA appendicular skeleton 11/30/24 K50.90 - Crohn's disease, unspecified, without complications Vedolizumab Qn with Ab 11/30/24 K50.90 - Crohn's disease, unspecified, without complications Comprehensive Met. Panel 11/30/24 K5090 - Crohn's disease, unspecified, without complications IRON PROFILE 11/30/24 K50.90 - Crohn's disease, unspecified, without complications Ferritin 11/30/24 K50.90 - Crohn's disease, unspecified, without complications Referrals Dermatology Referral K50. - Crohn's disease, unspecified, without complications Coding Level of Care Code Complex visit Add On G2211 Diagnoses Crohn's disease K50.90 Chronic diarrhea K52.9 Clostridioides difficile infection A49.8
[2024-11-30 10:46] VITALS: BP 131/78; PULSE 78; BMI 29.2
--- OUTSIDE RECORDS SUMMARY | 2024-11-30 11:34 | XMS_ITS | Clinical Summary ---
Author Organization [facility] Address [address] [place] [id number] Phone Care Team Providers Care [facility]na Hospice Name Role Phone Unavailable Primary Care Provider [...] of 2 - 13+ 2-dose series) 08/12/2000 COVID-19 Vaccine (2023-2 5 season) 2024 Influenza Vaccines (#1) 2024 MMR Vaccines Completed 04/26/1999 HIB Vaccines [...]
== END 2024-11-30 11:34 | disposition home or self-care (01) ==
LOC: HO.HGI 10:37
PROVIDERS: PCP Internal Medicine; Visit Provider Internal Medicine
DX: K50.90 Crohn's disease, unspecified, without complications (principal); K52.9 Noninfective gastroenteritis and colitis, unspecified; A49.8 Other bacterial infections of unspecified site
CPT/HCPCS: 99213

== ENCOUNTER → 2024-11-30 10:35 | Outpatient (BNVA) | payer OTHER, SELFPAY | PROVIDERS: PCP Internal Medicine; Visit Provider Internal Medicine | DX: Z09 Encounter for follow-up examination after completed treatment for conditions other than malignant neoplasm (principal); K50.90 Crohn's disease, unspecified, without complications; Z86.19 Personal history of other infectious and parasitic diseases | CPT/HCPCS: 99212 ==

== ENCOUNTER → 2024-12-31 11:00 | Outpatient (BNV) | payer OTHER, SELFPAY | PROVIDERS: PCP Internal Medicine; Visit Provider Radiology Diagnostic Radiology | DX: E28.39 Other primary ovarian failure (principal) | CPT/HCPCS: 77081 ==

== ENCOUNTER 2024-12-31 11:09 | Outpatient (REF) | payer OTHER, SELFPAY ==
--- NOTE | ~2024-12-31 | MM_ITS ---
EXAMINATION: DXA BONE DENSITY EXTREMITY HISTORY: K50.90 - Crohn's disease, unspecified, without complications TECHNIQUE: goAct Dual energy absorptiometry (DEXA) of the lumbar spine, total left hip, femoral neck, and distal radius was performed. COMPARISON: There are no prior studies for comparison. FINDINGS: The bone mineral density of the lumbar spine is 1.470 g/cm2, corresponding to a T-score of 2.4, and a Z-score of 1.9. This is indicative of normal bone mineral density. The bone mineral density of the left total hip is 1.068 g/cm2, corresponding to a T-score of 0.5, and a Z-score of 0.3. This is indicative of normal bone mineral density. The bone mineral density of the left femoral neck is 1.078 g/cm2, corresponding to a T-score of 0.3, and a Z-score of 0.3. This is indicative of normal bone mineral density. The bone mineral density of the distal radius is 0.871 g/cm2, corresponding to a T-score of -0.1, and a Z-score of -0.1. This is indicative of normal bone mineral density. MM/XR DEXA appendicular skeleton IMPRESSION: Based on bone mineral density, and according to World Health Organization (WHO) criteria, the diagnosis is consistent with normal bone mineral density. Statistically, 68% of repeat scans fall within 1 SD (+/- 0.010 g/cm2 for AP spine L1-L4) and 1 SD (+/- 0.012 g/cm2 for femur total) FRAX is a trademark of the [employer], a World Health Organization (WHO) Collaborating Center. Electronically signed by: Efraín Farmer MD 12/31/2024 12:15 PM EDT
--- OUTSIDE RECORDS SUMMARY | 2024-12-31 11:15 | XMS_ITS | Clinical Summary ---
Author Organization [facility] Address [address] [place] [address] Phone Care Team Providers Care Slicing Machine Feeder Name Role Phone Unavailable Primary Care Provider [...] of 2 - 13+ 2-dose series) 08/12/2000 HPV Vaccines (1 - 3-dose SCD M series) 08/12/2014 COVID-19 Vaccine ( - 2023-2 5 season) 2024 Influenza Vaccines (#1) 2024 [...]
== END 2024-12-31 11:10 | disposition home or self-care (01) ==
LOC: HO.MAMMO 11:09
PROVIDERS: PCP Internal Medicine; Visit Provider Internal Medicine
DX: K50.90 Crohn's disease, unspecified, without complications (principal)
CPT/HCPCS: 77081

== ENCOUNTER 2025-03-29 15:16 | Outpatient (REF) | payer OTHER, SELFPAY ==
[2025-03-29 17:12] LABS: Hematocrit 36.1 % (37.0-47.0); Hemoglobin 12.2 g/dl (12.0-16.0); Mean Corpuscular HGB Conc 33.8 g/dl (31.0-35.0); Mean Corpuscular Hemoglobin 30.0 pg (27.0-33.0); Mean Corpuscular Volume 88.7 fL (80.0-98.0); NRBC Abs Auto 0.000 X10*3/uL (0.0-0.012); NRBC Pct Auto 0.0 /100WBC (0.0-0.2); Platelet Count 403 X10*3/uL (160-400); Red Blood Count 4.07 X10*6/uL (4.20-5.50); White Blood Count 6.2 X10*3/uL (4.8-10.8)
[2025-03-29 17:51] LABS: Alanine Aminotransferase 16 U/L (0-31); Albumin Level 4.9 g/dL (3.5-5.0); Alkaline Phosphatase 79 U/L (39-117); Anion Gap 12 (12-20); Aspartate Amino Transferase 23 U/L (5-31); Blood Urea Nitrogen 8 mg/dL (9-16); Calcium 9.4 mg/dL (8.4-10.2); Carbon Dioxide 25 mmol/L (22-29); Chloride 108 mmol/L (96-108); Estimated Glomerular Filt Rate > 60; Iron 54 mcg/dL (30-160); Percent Iron Saturation 18 % (15-50); Potassium 4.0 mmol/L (3.3-5.1); Sodium 141 mmol/L (135-145); Total Iron Binding Capacity 300 mcg/dL (228-428); Total Protein 8.1 g/dL (6.5-8.0); Unsaturated Iron Binding 246 ug/dL
[2025-03-29 17:52] LABS: Ferritin 35 ng/mL (10-122)
--- OUTSIDE RECORDS SUMMARY | 2025-03-29 18:09 | XMS_ITS | Clinical Summary ---
Author Organization [facility] Address [address] [address] Phone Care Team Providers Care Medical Anthropologist Name Role Phone Stacy Guzmán MD Primary Care Provid er Allergies No known active allergies Medications dicyclomine (BENTYL) 20 mg tablet Take 1 tablet (20 mg total) by mouth every 6 (six) hours for 12 doses. 12 tablet 03/01/2022 Active Immunizations Immunization Administration Dates Next Due COVID-19 (Pre-03/17) Pfizer Vaccine, mRNA, PF 10/15/2021,09/03/2021 Hepatitis B Adult 08/29/2023,,08/29/2023,1998,04/02/1999,01/24/1998 INFLUENZA, SPLIT VIRUS, TRIVALENT PF 03/02/2025, 02/22/2024 Influenza, Unspecified Formulation 03/31/2023 MMR 02/06/2000,07/24/1989 Td (adult),2 Lf Tetanus Toxo id, PF, Adsorbed 04/25/1999 Tdap 03/31/2023 Social History Tobacco Use Types Packs/Day Years Used Date Smoking Tobacco: Never Assessed Education Answer Date Recorded Are you interested in more education? Not on russel e 09/21/2022 Are you concerned about learning? Not on file 09/21/2022 No 09/21/2022 No 09/21/2022 Digital Access Answer Date Recorded No 10/22/2022 No 10/22/2022 Reliable internet access at home? Not on file 10/22/2022 Device with a working camera? Not on file Comments Unknown Sex and Gender Information Value Date Recorded Sex Assigned at Not on file Legal Sex Female 7:32 AM EDT Gender Identity Not on file Sexual Orientation Not on file Last Filed Vital Signs Vital Sign Reading Time Taken Comments Blood Pressure 145/97 03/01/2022 7:38 AM EDT Pulse 85 03/01/2022 10:22 AM EDT Temperature 36.2 C (97.1 F) 03/01/2022 10:22 AM EDT Respiratory Rate 16 03/01/2022 10:22 AM EDT Oxygen Saturation 99% 03/01/2022 10:22 AM EDT Inhaled Oxygen Concentration - - Weight 76.2 kg (168 lb) 03/01/2022 7:38 AM EDT Height 170.2 cm (5' 7 ) 03/01/2022 7:38 AM EDT Body Mass Index 26.31 03/01/2022 7:38 AM EDT Plan of Treatment Health Maintenance Due Date Last Done Comments DEPRESSION SCREENING 1999 SMOKING Hx and SMOKELESS TOBACCO SCREENING 08/12/2000 HEPATITIS C SCREENING 08/12/2005 HIV ONE-TIME SCREENING (18-6 5 YEARS) 08/12/2005 PAP SMEAR 08/12/2008 COVID-19 VACCINE (2024-2 6 season) 2025 10/15/2021, 09/03/2021 Adult Td,Tdap Booster 03/31/2033 03/31/2023 , 04/26/1999, 04/25/1999 INFLUENZA VACCINE Completed 03/02/2025, 02/22/2024, 03/31/2023 HEPATITIS A VACCINES Aged Out No long er eligible based on patient's age to complete this topic HIB VACCINES Aged Out No longer eligi ble based on patient's age to complete this topic MENINGOCOCCAL VACCINES (ACWY) Aged Out No longer eligible based on patient's age to complete this topic MENINGOCOCCAL VACCINES (B) Aged Out N o longer eligible based on patient's age to complete this topic PNEUMOCOCCAL VACCINES (0-49 years) Aged Out No longer eligible b ased on patient's age to complete this topic Medical Devices Not on file Insurance DR ANDRE, [place] [id number] [facility] Care Teams Medical Anthropologist Relationship Specialty Start Date End Date Stacy Guzmán MD [address] [place] [address] PCP - General Internal Medicine 03/01/22 Additional Source Comments The information contained in this document represents components of the legal health record. It is not the complete legal health record.[facility]
--- OUTSIDE RECORDS SUMMARY | 2025-03-29 18:09 | XMS_ITS | Encounter Summary ---
Author Organization [facility] Address [address] [place] [phone] Phone Care Team Providers Care Radial Drill Press Set Up Operator Name Role Phone Kathy Perez MD Primary Care Provider [phone] Encounter Details Date Type Department Care Team (Late st Contact Info) Description 02/04/2012 Documentation EM Family Medicine [address] [place] [address] Family Medicine, Physician [address] [place], [place] [id number] Social History Tobacco Use Types Packs/Day Years [...] on filedocumented in this encounter Care Teams Radial Drill Press Set Up Operator Relationship Specialty Start Date End Date Kathy Perez MD [address] [place] [address] [place] [id number] PCP - General 01/03/17 08/13/22 documented as of this encounter
--- OUTSIDE RECORDS SUMMARY | 2025-03-29 18:09 | XMS_ITS | Clinical Summary ---
Author Organization [facility] Address [address] [place] [phone] Phone Care Team Providers Care Napkin Machine Operator Name Role Phone Unavailable Primary Care Provider [...] (1 - 3-dose SCD M series) 08/12/2014 Influenza Vaccines (#1) 2024 COVID-19 Vaccine ( - 2024-2 6 season) 2025 MMR Vaccines Completed 04/26/1999 HIB Vaccines Aged [...]
[2025-04-06 18:09] LABS: Calprotectin, Fecal 14 mcg/g
[2025-04-11 08:45] LABS: Vedolizumab Antibody <9.8
== END 2025-03-29 15:17 | disposition home or self-care (01) ==
LOC: HO.LAB 15:16
PROVIDERS: PCP Internal Medicine; Visit Provider Internal Medicine
DX: K50.90 Crohn's disease, unspecified, without complications (principal)
CPT/HCPCS: 36415; 80053; 80280; 82306; 82728; 83520; 83540; 83993; 85027; 86140